=== PATIENT | female | born 1975 | race Caucasian/White ===

== ENCOUNTER 2019-11-19 09:24 | Outpatient (CLI) | payer MEDICARE, MEDICAID, SELFPAY | END 2019-11-19 09:25 | disposition home or self-care (01) | LOC: WOUND 09:25 | PROVIDERS: Family Provider Internal Medicine; Visit Provider Emergency Medicine | DX: E11.621 Type 2 diabetes mellitus with foot ulcer (principal); L97.422 Non-pressure chronic ulcer of left heel and midfoot with fat layer exposed; L97.412 Non-pressure chronic ulcer of right heel and midfoot with fat layer exposed | CPT/HCPCS: 11042; 87070; 87077; 87176; 87186; 87205; G0463; L3260 ==

== ENCOUNTER 2019-11-26 11:01 | Outpatient (CLI) | payer MEDICARE, MEDICAID, SELFPAY | END 2019-11-26 11:02 | disposition home or self-care (01) | LOC: WOUND 11:02 | PROVIDERS: Family Provider Internal Medicine; Visit Provider Emergency Medicine | DX: E11.621 Type 2 diabetes mellitus with foot ulcer (principal); L97.421 Non-pressure chronic ulcer of left heel and midfoot limited to breakdown of skin; L97.411 Non-pressure chronic ulcer of right heel and midfoot limited to breakdown of skin | CPT/HCPCS: 11042 ==

== ENCOUNTER 2019-12-01 07:52 | Outpatient (CLI) | payer MEDICARE, MEDICAID, SELFPAY ==
--- NOTE | 2019-12-01 08:01 | USCV_ITS ---
Honey Zuleta Age: 44 Gender: F : 1975 Exam Date: 12/01/2019 08:18 Ordering Phys: Shelbi Jett DO Technologist: Jj Connolly [place] [facility] [place]: HISTORY: PROCEDURES: FINDINGS: There is no evidence of bilateral deep vein thrombosis. No evidence of superficial thrombosis in the bilateral saphenous system. No evidence of reflux was noted in the bilateral deep venous system. No venous reflux noted in the bilateral greater saphenous vein. No venous reflux noted in the bilateral small saphenous vein. CONCLUSIONS No evidence of DVT in the above-mentioned identifiable veins. No significant venous reflux Venous segments were found to be of normal caliber bilaterally The venous dimensions and the left from the surface are as mentioned above. Dr Sheridan Marquez MD [facility] (Electronically Signed) Final Date: 01 December 2019 17:46 S
--- NOTE | 2019-12-01 08:32 | XR_ITS ---
WS: [id number] EXAM: LEFT FOOT: 3 VIEWS DATE OF EXAMINATION: 12/01/2019, 0901 hours COMPARISON: Left foot examination from 06/18/2018 HISTORY: 44 years old with ulcers on both feet. Pain in the left foot. Diabetic. FINDINGS: Bone density is normal in appearance. There are slight changes of arthritis in the midfoot articulati ons. Heel spur plantar aponeurosis insertion. No extensive soft tissue abnormality seen. Suspicion fo r possible osteochondral lesion medial talar dome. Ankle films recommended. No soft tissue abnormalit y noted. XR/XR foot LT min 3V* [id number] IMPRESSION: Slight arthritis in the midfoot articulations. No acute bony abnormality. Suspe cted osteochondral defect medial talar dome. Ankle films recommended.
--- NOTE | 2019-12-01 08:32 | XR_ITS ---
WS: [id number] EXAM: RIGHT FOOT: 3 VIEWS DATE OF EXAMINATION: 12/01/2019, 0859 hours COMPARISON: Right foot examination from 2018. HISTORY: 44 years old with ulcers on both feet. Pain. Patient is a diabetic. FINDINGS: Bone density is normal in appearance. There appears to be an old healed fracture involving the proxim al phalanx of the fourth toe. There is arthritis in the midfoot articulations demonstrated. No acute bony abnormality is seen. No extensive soft tissue abnormality demonstrated. No definite findings of osteomyelitis. No soft tissue abnormality noted. XR/XR foot RT min 3V* [id number] IMPRESSION: Slight changes of arthritis. No acute bony abnormality. No findings of osteomye litis.
== END 2019-12-01 07:53 | disposition home or self-care (01) ==
LOC: RAD 07:56
PROVIDERS: Family Provider Internal Medicine; Visit Provider Emergency Medicine
DX: M79.672 Pain in left foot (principal); E11.621 Type 2 diabetes mellitus with foot ulcer; L53.9 Erythematous condition, unspecified; L97.529 Non-pressure chronic ulcer of other part of left foot with unspecified severity; L97.519 Non-pressure chronic ulcer of other part of right foot with unspecified severity
CPT/HCPCS: 73630; 93970

== ENCOUNTER 2019-12-02 07:48 | Outpatient (CLI) | payer MEDICARE, MEDICAID, SELFPAY ==
--- NOTE | 2019-12-02 07:53 | USCV_ITS ---
Honey Zuleta Age: 44 Gender: F : 1975 Exam Date: 12/02/2019 07:51 Ordering Phys: Shelbi Jett DO Technologist: Exam Location: [facility] – [place] Indication: FOOT ULCERS RIGHT LEFT Brachial 166.00 mmHg Brachial 162.00 mmHg Pressure (mmHg) Waveform Pressure (mmHg) Waveform 220.00 CASUALTY UNDERWRITER 220.00 161.00 DPA 162.00 Pre-Exercise Toe Pressure 196.00 0.98 Pre-Exercise Toe/Brachial Index 1.10 FINDINGS Supernormal resting ABIs bilaterally Normal resting TBIs bilaterally CONCLUSIONS No significant arterial obstruction, based on the above findings Dr Sheridan Marquez MD [facility] (Electronically Signed) Final Date: 02 December 2019 20:56 S
== END 2019-12-02 07:49 | disposition home or self-care (01) ==
LOC: US 07:51
PROVIDERS: Family Provider Internal Medicine; Visit Provider Emergency Medicine
DX: M79.604 Pain in right leg (principal); M79.605 Pain in left leg; L53.9 Erythematous condition, unspecified; L97.529 Non-pressure chronic ulcer of other part of left foot with unspecified severity; L97.519 Non-pressure chronic ulcer of other part of right foot with unspecified severity
CPT/HCPCS: 93923

== ENCOUNTER 2019-12-03 10:34 | Outpatient (CLI) | payer MEDICARE, MEDICAID, SELFPAY | END 2019-12-03 10:35 | disposition home or self-care (01) | LOC: WOUND 10:37 | PROVIDERS: Family Provider Internal Medicine; Visit Provider Emergency Medicine | DX: E11.621 Type 2 diabetes mellitus with foot ulcer (principal); L97.422 Non-pressure chronic ulcer of left heel and midfoot with fat layer exposed; L97.412 Non-pressure chronic ulcer of right heel and midfoot with fat layer exposed | CPT/HCPCS: 11042 ==

== ENCOUNTER 2019-12-10 10:00 | Outpatient (CLI) | payer MEDICARE, MEDICAID, SELFPAY ==
--- NOTE | 2019-12-10 10:10 | XRR_ITS ---
PROCEDURE INFORMATION: Exam: XR Left Ankle Exam date and time: 12/10/2019 10:26 AM Age: 44 years old Clinical indication: Abnormal findings; Abnormal imaging study; Foot left; Additional info: Abnormal foot xray TECHNIQUE: Imaging protocol: XR Left ankle. Views: Frontal, lateral, and oblique views. COMPARISON: CR XR foot LT min 3V* [id number] 12/01/2019 8:54 AM FINDINGS: Bones/joints: No talar dome osteochondral defect identified. Mild-moderate tibiotalar joint effusion. No acute bony abnormality identified. A moderate plantar calcaneal ossified spur is present. Soft tissues: Normal. XR/XR ankle LT min 3V* [id number] IMPRESSION: 1. No talar dome osteochondral defect identified. 2. Mild-moderate tibiotalar joint effusion. 3. No acute bony abnormality identified. 4. Plantar calcaneal spur.
== END 2019-12-10 10:01 | disposition home or self-care (01) ==
LOC: RAD 10:04
PROVIDERS: PCP Nurse Practitioner Family; Visit Provider Emergency Medicine
DX: R93.89 Abnormal findings on diagnostic imaging of other specified body structures (principal); M77.32 Calcaneal spur, left foot; M25.472 Effusion, left ankle
CPT/HCPCS: 73610

== ENCOUNTER 2019-12-10 10:33 | Outpatient (CLI) | payer MEDICARE, MEDICAID, SELFPAY | END 2019-12-10 10:34 | disposition home or self-care (01) | LOC: WOUND 10:34 | PROVIDERS: PCP Nurse Practitioner Family; Visit Provider Nurse Practitioner Family | DX: E11.621 Type 2 diabetes mellitus with foot ulcer (principal); L97.422 Non-pressure chronic ulcer of left heel and midfoot with fat layer exposed; L97.412 Non-pressure chronic ulcer of right heel and midfoot with fat layer exposed; R93.89 Abnormal findings on diagnostic imaging of other specified body structures; M77.32 Calcaneal spur, left foot; M25.472 Effusion, left ankle | CPT/HCPCS: 11042; 73610 ==

== ENCOUNTER 2019-12-17 08:39 | Outpatient (CLI) | payer MEDICARE, MEDICAID, SELFPAY | END 2019-12-17 08:40 | disposition home or self-care (01) | LOC: WOUND 08:40 | PROVIDERS: PCP Nurse Practitioner Family; Visit Provider Nurse Practitioner Family | DX: E11.621 Type 2 diabetes mellitus with foot ulcer (principal); L97.412 Non-pressure chronic ulcer of right heel and midfoot with fat layer exposed; L97.422 Non-pressure chronic ulcer of left heel and midfoot with fat layer exposed | CPT/HCPCS: 11042 ==

== ENCOUNTER 2019-12-24 10:35 | Outpatient (CLI) | payer MEDICARE, MEDICAID, SELFPAY | END 2019-12-24 10:36 | disposition home or self-care (01) | LOC: WOUND 10:36 | PROVIDERS: PCP Nurse Practitioner Family; Visit Provider Surgery | DX: E11.621 Type 2 diabetes mellitus with foot ulcer (principal); L97.422 Non-pressure chronic ulcer of left heel and midfoot with fat layer exposed; L97.412 Non-pressure chronic ulcer of right heel and midfoot with fat layer exposed | CPT/HCPCS: G0463 ==

== ENCOUNTER 2019-12-31 08:11 | Outpatient (CLI) | payer MEDICARE, MEDICAID, SELFPAY | END 2019-12-31 08:12 | disposition home or self-care (01) | LOC: WOUND 08:12 | PROVIDERS: PCP Nurse Practitioner Family; Visit Provider Nurse Practitioner Family | DX: E11.621 Type 2 diabetes mellitus with foot ulcer (principal); L97.423 Non-pressure chronic ulcer of left heel and midfoot with necrosis of muscle; L97.412 Non-pressure chronic ulcer of right heel and midfoot with fat layer exposed | CPT/HCPCS: 11042 ==

== ENCOUNTER 2020-01-07 09:55 | Outpatient (CLI) | payer MEDICARE, MEDICAID, SELFPAY | END 2020-01-07 09:56 | disposition home or self-care (01) | LOC: WOUND 09:56 | PROVIDERS: PCP Nurse Practitioner Family; Visit Provider Thoracic Surgery (Cardiothoracic Vascular Surgery) | DX: E11.621 Type 2 diabetes mellitus with foot ulcer (principal); L97.423 Non-pressure chronic ulcer of left heel and midfoot with necrosis of muscle | CPT/HCPCS: 11042 ==

== ENCOUNTER 2020-01-14 10:21 | Outpatient (CLI) | payer MEDICARE, MEDICAID, SELFPAY | END 2020-01-14 10:22 | disposition home or self-care (01) | LOC: WOUND 10:22 | PROVIDERS: PCP Nurse Practitioner Family; Visit Provider Thoracic Surgery (Cardiothoracic Vascular Surgery) | DX: E11.621 Type 2 diabetes mellitus with foot ulcer (principal); L97.422 Non-pressure chronic ulcer of left heel and midfoot with fat layer exposed | CPT/HCPCS: 11042 ==

== ENCOUNTER 2020-01-21 09:44 | Outpatient (CLI) | payer MEDICARE, MEDICAID, SELFPAY | END 2020-01-21 09:45 | disposition home or self-care (01) | LOC: WOUND 09:45 | PROVIDERS: PCP Nurse Practitioner Family; Visit Provider Thoracic Surgery (Cardiothoracic Vascular Surgery) | DX: Z09 Encounter for follow-up examination after completed treatment for conditions other than malignant neoplasm (principal) | CPT/HCPCS: 99212 ==

== ENCOUNTER → 2020-11-18 11:21 | Outpatient (BNVA) | payer MEDICARE, MEDICAID, SELFPAY | PROVIDERS: PCP Nurse Practitioner Family; Visit Provider Podiatrist Foot & Ankle Surgery | DX: M25.572 Pain in left ankle and joints of left foot (principal); M79.672 Pain in left foot | CPT/HCPCS: 73610; 73630 ==

== ENCOUNTER 2021-01-20 13:54 | Outpatient (CLI) | payer MEDICARE, MEDICAID, SELFPAY | END 2021-01-20 13:55 | disposition home or self-care (01) | LOC: WOUND 13:55 | PROVIDERS: PCP Nurse Practitioner Family; Visit Provider Nurse Practitioner Family | DX: E11.621 Type 2 diabetes mellitus with foot ulcer (principal); L97.522 Non-pressure chronic ulcer of other part of left foot with fat layer exposed; Z87.891 Personal history of nicotine dependence | CPT/HCPCS: 11042; G0463 ==

== ENCOUNTER 2021-01-27 15:05 | Outpatient (CLI) | payer MEDICARE, MEDICAID, SELFPAY | END 2021-01-27 15:06 | disposition home or self-care (01) | LOC: WOUND 15:06 | PROVIDERS: PCP Nurse Practitioner Family; Visit Provider Emergency Medicine | DX: E11.621 Type 2 diabetes mellitus with foot ulcer (principal); L97.522 Non-pressure chronic ulcer of other part of left foot with fat layer exposed; I10 Essential (primary) hypertension; Z87.891 Personal history of nicotine dependence | CPT/HCPCS: 11042 ==

== ENCOUNTER 2021-02-03 09:53 | Outpatient (CLI) | payer MEDICARE, MEDICAID, SELFPAY | END 2021-02-03 09:54 | disposition home or self-care (01) | LOC: WOUND 09:55 | PROVIDERS: PCP Nurse Practitioner Family; Visit Provider Nurse Practitioner Family | DX: E11.621 Type 2 diabetes mellitus with foot ulcer (principal); L97.521 Non-pressure chronic ulcer of other part of left foot limited to breakdown of skin; I10 Essential (primary) hypertension; Z87.891 Personal history of nicotine dependence | CPT/HCPCS: 11042 ==

== ENCOUNTER 2021-03-03 10:51 | Outpatient (CLI) | payer MEDICARE, MEDICAID, SELFPAY | END 2021-03-03 10:52 | disposition home or self-care (01) | LOC: WOUND 10:52 | PROVIDERS: PCP Nurse Practitioner Family; Visit Provider Nurse Practitioner Family | DX: Z09 Encounter for follow-up examination after completed treatment for conditions other than malignant neoplasm (principal) | CPT/HCPCS: 99212 ==

== ENCOUNTER 2021-04-12 23:12 | Inpatient (IN) | payer MEDICARE, MEDICAID, SELFPAY ==
[2021-04-12 23:21] VITALS: BP 183/127; PULSE 98; RESP 22; TEMP 37; O2SAT 95; BMI 30.9
--- NOTE | 2021-04-12 23:31 | CTR_ITS ---
PROCEDURE INFORMATION: Exam: CT Head Without Contrast Exam date and time: 04/12/2021 11:31 PM Age: 46 years old Clinical indication: Altered mental status/memory loss; Patient HX: AMS. Increasing confusion per family. General weakness. Hypertensive. TECHNIQUE: Imaging protocol: Computed tomography of the head without contrast. Radiation optimization: All CT scans at this facility use at least one of these dose optimization techniques: automated exposure control; mA and/or kV adjustment per patient size (includes targeted exams where dose is matched to clinical indication); or iterative reconstruction. COMPARISON: No relevant prior studies available. RADIATION DOSE METRICS: Total DLP (mGy-cm): 1106.73 FINDINGS: Brain: Normal. No hemorrhage. Unremarkable white matter. No mass effect. Cerebral ventricles: No ventriculomegaly. Paranasal sinuses: Visualized sinuses are unremarkable. No fluid levels. Mastoid air cells: Visualized mastoid air cells are well aerated. Bones/joints: Unremarkable. No acute fracture. Soft tissues: Unremarkable. CT/CT head wo con* [id number] IMPRESSION: No acute intracranial abnormality.
--- NOTE | 2021-04-12 23:31 | XRR_ITS ---
PROCEDURE INFORMATION: Exam: XR Chest Exam date and time: 04/12/2021 11:31 PM Age: 46 years old Clinical indication: Patient HX: General weakness. Hypertensive. TECHNIQUE: Imaging protocol: XR of the chest. Views: 1 view. COMPARISON: No relevant prior studies available. FINDINGS: Lungs: Several left lower lobe pulmonary nodules suspected measuring up to 11 mm, consider further evaluation with dedicated chest CT. Pleural spaces: Unremarkable. No pleural effusion. No pneumothorax. Heart/Mediastinum: Cardiomegaly. Bones/joints: Unremarkable. XR/XR chest 1V portable [id number] IMPRESSION: 1. Cardiomegaly. 2. Several left lower lobe pulmonary nodules suspected measuring up to 11 mm, consider further evaluation with dedicated chest CT.
--- NOTE | 2021-04-12 23:32 | ECG_ITS ---
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 Measurements Intervals Pfeifer Rate: 98 P: 42 MT: 179 QRS: 10 QRSD: 92 T: 17 QT: 337 QTc: 431 Interpretive Statements SINUS RHYTHM POSSIBLE LEFT ATRIAL ENLARGEMENT [-0.1mV P-WAVE IN V1/V2] INCOMPLETE RIGHT BUNDLE BRANCH BLOCK [90+ ms QRS DURATION, TERMINAL R IN V1/V2, 40+ ms S IN I/aVL/V4/V5/V6] No previous ECG available for comparison Electronically Signed On 04-14-2021 0:00:19 SAT TUTOR by Sheridan Marquez M.D. [email or web address]
--- NOTE | 2021-04-12 23:33 | ED_ITS ---
HPI - Altered Mental Status General: Chief Complaint: Altered Mental Status Stated Complaint: WEAKNESS Time Seen by Provider: 04/12/21 23:28 Source: patient and EMS Mode of arrival: EMS Limitations: no limitations History of Present Illness: 46-year-old female has a history of diabetes high blood pressure that mother had called EMS because she has been having malaise weakness and confusion at home over the last 3 days she has had decreased oral pain intake has not been taking her meds has had some difficulty walking. Here patient is able answer all my questions appropriately she knows the year she knows where she is from has no confusion here states she is just felt very weak and tired denies any pain anywhere denies any fever has had a very slight cough denies any worsening proving factors. Associated symptoms: Deny depression Review of Systems Const: Reports: fatigue and malaise; Denies: fever(s), chills, body aches or change in appetite Eyes: Denies: blurry vision or eye discomfort ENMT: Denies: throat pain or dental pain Card: Denies: chest pain Resp: Denies: dyspnea GI: Denies: abdominal pain, nausea, vomiting or diarrhea : Denies: dysuria Musc: Denies: neck pain or back pain Skin/Breast: Denies: rash Neuro: Reports: confusion; Denies: headache(s) Psych: Denies: depression Gregor/Lymph: Denies: easy bruising All/Imm: Denies: urticaria PFSH ED PFSH: Medical History Anemia CKD (chronic kidney disease) stage 3, GFR 30-59 ml/min Diabetes mellitus Hyperlipidemia Hypertension Hypothyroid Neuropathy PVD (peripheral vascular disease) Surgical History Hx of section Hx of tubal ligation Social History Smoking and tobacco status: former smoker Marital status: Number of children: 3 service: No History of recent travel: No Physical Exam Const: COMMON NORMALS: no acute distress, patient oriented x3 and healthy appearing HENMT: COMMON NORMALS: normocephalic and atraumatic HEAD & SCALP: n ormocephalic and atraumatic Eye: COMMON NORMALS: Equal, round and reactive pupils present and EOMs intact bilaterally PUPIL: Yes Equal, round and reactive pupils present Neck/C-Spine: COMMON NORMALS: full ROM and supple Chest: COMMONS NORMALS: normal inspection of the chest and normal palpation of entire chest wall Resp: COMMON NORMALS: normal respiratory effort, No retractions, No use of accessory muscles and clear to auscultation bilaterally AUSCULTATION: clear to auscultation bilaterally Cardio: COMMON NORMALS: regular rate, regular rhythm and No murmurs present (Cardio) RATE: regular rate RHYTHM: regular rhythm GI: COMMON NORMALS: Normal to inspection, nondistended, normoactive bowel sounds present, Soft to palpation, non-tender and no masses PALPATION: Yes Soft to palpation Extremity: COMMON NORMALS: normal to inspection and full ROM Neuro: COMMON NORMALS: patient oriented x3, moves all extremities and no focal motor deficits Psych: COMMON NORMALS: mental status grossly normal, Normal thought process present and cooperative THOUGHT PROCESS: Normal thought process present Skin: COMMON NORMALS: no rashes or lesions noted and no wounds GENERAL SKIN EXAM: no rashes or lesions noted Course Vital Signs: Vital signs: Vital Signs Temperature 98.6 F 04/12/21 23:21 Pulse Rate 88 04/13/21 00:44 Respiratory Rate 15 04/13/21 00:44 Blood Pressure 190/87 04/13/21 00:44 Pulse Oximetry 94 04/13/21 00:44 MDM - Altered Mental Status Medical Decision Making Patient presents here with weakness she also tested positive for Covid here. She is having no respiratory issues not wearing oxygen but she does have acute kidney injury with creatinine here 4.3 likely from dehydration patient is also hypertensive here as well does have a chronic history of hypertension she has not been taking her meds spoke to hospitalist will admit at this time for further IV hydration. Lab Data : 04/12/21 23:20 04/12/21 23:20 Radiology Impressions Chest X-Ray 04/12/21 23:31 IMPRESSION: 1. Cardiomegaly. 2. Several left lower lobe pulmonary nodules suspected measuring up to 11 mm, consider further evaluation with dedicated chest CT. Head CT 04/12/21 23:31 IMPRESSION: No acute intracranial abnormality. Laboratory Results WBC 4.0 10^3/uL (4.0-10.0) 04/12/21 23:20 RBC 3.29 10^6/uL (4.1-5.3) L 04/12/21 23:20 Hgb 9.5 g/dL (11.5-15.3) L 04/12/21 23:20 Hct 30.1 % (37.0-47.0) L 04/12/21 23:20 MCV 91.5 fl (81-99) 04/12/21 23:20 MCH 28.9 pg (28.0-34.0) 04/12/21 23:20 MCHC 31.6 g/dL (30.0-36.0) 04/12/21 23:20 RDW 12.3 % (12.1-15.1) 04/12/21 23:20 Plt Count 209 10^3/cmm (130-400) 04/12/21 23:20 MPV 11.2 fL (7.4-10.4) H 04/12/21 23:20 Neut % (Auto) 58.2 % 04/12/21 23:20 Lymph % (Auto) 22.8 % 04/12/21 23:20 [place] % (Auto) 16.9 % 04/12/21 23:20 Eos % (Auto) 1.2 % 04/12/21 23:20 Baso % (Auto) 0.2 % 04/12/21 23:20 Neut # (Auto) 2.34 10^3/uL (1.8-7.7) 04/12/21 23:20 Lymph # (Auto) 0.9 10^3/uL (0.8-4.8) 04/12/21 23:20 [place] # (Auto) 0.7 10^3/uL (0.2-0.9) 04/12/21 23:20 Eos # (Auto) 0.1 10^3/uL (0.0-0.8) 04/12/21 23:20 Baso # (Auto) 0.0 10^3/uL (0.0-0.1) 04/12/21 23:20 Nucleated RBC % (auto) 0 % 04/12/21 23:20 Nucleated RBCs # 0.0 /100WBC 04/12/21 23:20 Sodium 139 mmol/L (136-145) 04/12/21 23:20 Potassium 4.5 mmol/L (3.5-5.1) 04/12/21 23:20 Chloride 104 mmol/L (98-107) 04/12/21 23:20 Carbon Dioxide 23 mmol/L (22-29) 04/12/21 23:20 Anion Gap 16.5 (5-19) 04/12/21 23:20 BUN 34 mg/dL (6-20) H 04/12/21 23:20 Creatinine 4.3 mg/dL (0.5-0.9) H 04/12/21 23:20 GFR Calculation 11.0 mL/min (90-130) L 04/12/21 23:20 Glucose 128 mg/dL (65-115) H 04/12/21 23:20 Calculated Osmolality 297 mOsm/kg (285-295) H 04/12/21 23:20 Calcium 7.7 mg/dL (8.5-10.5) L 04/12/21 23:20 Magnesium 2.1 mg/dL (1.7-2.3) 04/12/21 23:20 Total Bilirubin 0.2 mg/dL (0.15-1.2) 04/12/21 23:20 AST 25 U/L (0-32) 04/12/21 23:20 ALT 10 U/L (0-33) 04/12/21 23:20 Alkaline Phosphatase 52 IU/L (35-105) 04/12/21 23:20 Troponin T Baseline 26 ng/L (0-10) H 04/12/21 23:20 Troponin T 120 Minute 26.54 ng/L (0-10) H 04/13/21 01:28 Delta Troponin T 0.54 ABS# (0-10) 04/13/21 01:28 Total Protein 6.5 g/dL (6.6-8.7) L 04/12/21 23:20 Albumin 3.2 g/dL (3.5-5.2) L 04/12/21 23:20 Globulin 3.3 g/dL (1.3-4.6) 04/12/21 23:20 TSH 3.37 uIU/mL (0.27-4.20) 04/12/21 23:20 Urine Color Yellow (Yellow) 04/13/21 01:15 Urine Appearance Clear (CLEAR) 04/13/21 01:15 Urine pH 6.5 (5-7) 04/13/21 01:15 Ur Specific [place] 1.015 (1.005-1.030) 04/13/21 01:15 Urine Protein 3+ (Negative) H 04/13/21 01:15 Urine Glucose (UA) 1+ (Normal) H 04/13/21 01:15 Urine Ketones Negative (Negative) 04/13/21 01:15 Urine Blood 2+ (Negative) H 04/13/21 01:15 Urine Nitrate Negative (Negative) 04/13/21 01:15 Urine Bilirubin Neg (Negative) 04/13/21 01:15 Urine Urobilinogen Norm mg/dL (Negative) 04/13/21 01:15 Ur Leukocyte Esterase Negative (Negative) 04/13/21 01:15 Urine RBC 0-4 /hpf (0-2) H 04/13/21 01:15 Urine WBC 0-4 /hpf (0-5) H 04/13/21 01:15 Ur Squamous Epith Cells 10-15 /hpf (0-5) H 04/13/21 01:15 Amorphous Sediment Not Reportable 04/13/21 01:15 Urine Bacteria 1+ /hpf (NONE) H 04/13/21 01:15 Urine Mucus 1+ /hpf 04/13/21 01:15 SARS-CoV-2 Ag (Rapid) Positive (Negative) H 04/12/21 23:41 Imaging Data CXR: Radiologist's impression: IMPRESSION: 1. Cardiomegaly. 2. Several left lower lobe pulmonary nodules suspected measuring up to 11 mm, consider further evaluation with dedicated chest CT CT Head: I personally reviewed and interpreted this imaging study as follows: Radiologist's impression: IMPRESSION: No acute intracranial abnormality. EKG Data EKG 1: I personally reviewed and interpreted this EKG as follows: EKG interpretation date: 04/12/21 EKG interpretation time: 23:25 Interpretation: nsr hr [address] or t wave abnormalities qrs 92 qtc 392 Discharge Plan Discharge Patient Disposition: Admitted As Inpatient Clinical Impression: Acute kidney injury, COVID-19, Weakness, Hypertension Condition: Stable Coding Level of Care Code ED Cash Surrender Calculator for Chg Fwd Exam Comprehensive
[2021-04-12 23:40] LABS: Basophils % 0.2 %; Eosinophils # 0.1 10^3/uL (0.0-0.8); Eosinophils % 1.2 %; Hematocrit 30.1 % (37.0-47.0); Hemoglobin 9.5 g/dL (11.5-15.3); Lymphocytes # 0.9 10^3/uL (0.8-4.8); Lymphocytes % 22.8 %; Mean Corpuscular HGB Conc 31.6 g/dL (30.0-36.0); Mean Corpuscular Hemoglobin 28.9 pg (28.0-34.0); Mean Corpuscular Volume 91.5 fl (81-99); Mean Platelet Volume 11.2 fL (7.4-10.4); Monocytes # 0.7 10^3/uL (0.2-0.9); Monocytes % 16.9 %; Neutrophils # 2.34 10^3/uL (1.8-7.7); Neutrophils % 58.2 %; Nucleated Red Blood Cells % 0 %; Platelet Count 209 10^3/cmm (130-400); Red Blood Count 3.29 10^6/uL (4.1-5.3); Red Cell Distribution Width 12.3 % (12.1-15.1)
[2021-04-12] MEDS: labetalol 5 mg/mL SDV 20mL 10 MG IVP (23:56)
[2021-04-13] VITALS (26 sets, daily range): BP systolic 155–217; BP diastolic 72–120; PULSE 74–97; RESP 13–22; TEMP 37.1; O2SAT 91–97; BMI 38.4
[2021-04-13 00:11] LABS: Troponin(5th) Baseline 26 ng/L (0-10)
[2021-04-13 00:19] LABS: Alanine Aminotransferase 10 U/L (0-33); Albumin Level 3.2 g/dL (3.5-5.2); Alkaline Phosphatase 52 IU/L (35-105); Anion Gap 16.5 (5-19); Aspartate Amino Transferase 25 U/L (0-32); Blood Urea Nitrogen 34 mg/dL (6-20); Calcium 7.7 mg/dL (8.5-10.5); Carbon Dioxide 23 mmol/L (22-29); Chloride 104 mmol/L (98-107); Globulin 3.3 g/dL (1.3-4.6); Glucose 128 mg/dL (65-115); Magnesium 2.1 mg/dL (1.7-2.3); Osmolality Calculated 297 mOsm/kg (285-295); Potassium 4.5 mmol/L (3.5-5.1); Sodium 139 mmol/L (136-145); Thyroid Stimulating Hormone 3.37 uIU/mL (0.27-4.20); Total Bilirubin 0.2 mg/dL (0.15-1.2); Total Protein 6.5 g/dL (6.6-8.7)
[2021-04-13 00:23] LABS: SARS Covid-2 Antigen Positive (Negative)
[2021-04-13] MEDS: sodium chloride 0.9% 1,000 ML 999 ML IV (01:27)
--- NOTE | 2021-04-13 01:32 | ECG_ITS ---
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 Measurements Intervals [place]ival[place] Rate: 98 P: 42 DE: 179 QRS: 10 QRSD: 92 T: 17 QT: 337 QTc: 431 Interpretive Statements SINUS RHYTHM POSSIBLE LEFT ATRIAL ENLARGEMENT [-0.1mV P-WAVE IN V1/V2] INCOMPLETE RIGHT BUNDLE BRANCH BLOCK [90+ ms QRS DURATION, TERMINAL R IN V1/V2, 40+ ms S IN I/aVL/V4/V5/V6] No previous ECG available for comparison Electronically Signed On 04-14-2021 0:09:27 FAN BALANCER by Sheridan Marquez M.D. [email or web address]
[2021-04-13 01:51] LABS: Troponin 5 2HR 26.54 ng/L (0-10)
[2021-04-13 01:56] LABS: Troponin 5 2HR Delta 0.54 ABS# (0-10)
[2021-04-13 01:58] LABS: Add Urine Microscopic? YES; Bilirubin Urine Neg (Negative); Blood Urine 2+ (Negative); Glucose Urine UA 1+ (Normal); Ketones Urine Negative (Negative); Leukocyte Esterase Urine Negative (Negative); Nitrate Urine Negative (Negative); Protein Urine 3+ (Negative); RBC Urine 0-4 /hpf (0-2); Specific Gravity, Urine 1.015 (1.005-1.030); Urine Appearance Clear (CLEAR); Urine Color Yellow (Yellow); Urobilinogen Urine Norm (Negative); WBC Urine 0-4 /hpf (0-5); pH Urine 6.5 (5-7)
[2021-04-13 01:59] LABS: Bacteria Urine 1+ /hpf; Mucus Urine 1+ /hpf
[2021-04-13] MEDS: labetalol 5 mg/mL SDV 20mL 10 MG IVP (02:31)
--- NOTE | 2021-04-13 03:01 | P.HP_ITS ---
Providers/Chief Complaint Primary Care Provider: Lynsey Li APN Chief Complaint: WEAKNESS History of Present Illness Honey Zuleta is a 46 year old female with a past medical history insulin- dependent type 2 diabetes mellitus, right below-knee amputation, chronic anemia, CKD stage III, hypertension, hyperlipidemia, hypothyroidism, peripheral neuropathy, peripheral vascular disease who presents to [facility] due to increased confusion, weakness, fatigue. Currently patient is alert to person, not to place, not to time, she follows commands, no slurring of words, no focal weakness, no facial droop, currently hypertensive blood pressures 190s over 100, no chest pain complaints, headache, blurry vision, no neck stiffness. When I asked patient why she has come to the hospital, she does not know why, she tells that she feels tired and fatigued, denies any diarrhea, denies any dysuria, denies any cough, no shortness of breath no chest pain. Does complain of abdominal pain, quite diffuse. She tells me that she has been vaccinated for Covid, has received two vaccinations. Denies any nausea. No vomiting. In the em ergency room she is found to be Covid positive, creatinine 4.3, UA without any significant evidence of UTI, CTA of the head no acute stroke or bleed, 120- minute troponin 26.5 delta 0.54, EKG sinus rhythm, chest x-ray no focal infiltrates hospitalist team was called for admission. Review of Systems Const: Denies: fever(s) or malaise Eyes: Denies: change in vision or blurry vision ENMT: Denies: nasal congestion Resp: Denies: dyspnea, non-productive cough or wheezing GI: Denies: nausea, vomiting, diarrhea, constipation, hematochezia or melena : Denies: flank pain, dysuria or urinary frequency Musc: Denies: neck pain or back pain Neuro: Denies: headache(s), dizziness or vertigo Endo: Denies: polyuria or polydipsia Medications/Allergies Home Medications Medication Instructions Recorded Confirmed Last Taken Type amlodipine 10 mg tablet 10 mg PO DAILY 11/05/19 01/18/21 Unknown History cyclobenzaprine 10 mg tablet 10 mg PO TID 11/05/19 01/18/21 Unknown History diphenoxylate-atropine 2.5 1 tab PO Q8H PRN 11/05/19 01/18/21 Unknown History mg-0.025 mg tablet (Lomotil) duloxetine 30 mg capsule,delayed 30 mg PO DAILY 11/05/19 01/18/21 Unknown History release famotidine 40 mg tablet (Pepcid) 40 mg PO DAILY 11/05/19 01/18/21 Unknown History insulin detemir U-100 100 unit/mL 22 unit SUBCUT BID ml 11/05/19 01/18/21 Unknown History (3 mL) subcutaneous pen (Levemir FlexTouch U-100 Insulin) levothyroxine 112 mcg tablet 112 mcg PO DAILY 11/05/19 01/18/21 Unknown History losartan 50 mg tablet (Cozaar) 50 mg PO DAILY 11/05/19 01/18/21 Unknown History melatonin 10 mg tablet 10 mg PO DAILY 11/05/19 01/18/21 Unknown History pregabalin 150 mg capsule (Lyrica) 150 mg PO BID 11/05/19 01/18/21 Unknown History timolol 0.25 % eye drops 1 drop OPHTHALMIC (EYE) DAILY 11/05/19 01/18/21 Unknown History tramadol 50 mg tablet 50 mg PO Q4H PRN 11/05/19 01/18/21 Unknown History DARCO shoe to the left #1 ea 01/18/21 01/18/21 Unknown Rx Allergies Allergy/AdvReac Type Severity Reaction Status Date / Time Sulfa (Sulfonamide Allergy Severe fluid Verified 11/18/20 11:18 Antibiotics) around her heart sulfamethoxazole Allergy Severe fluid Verified 11/18/20 11:18 [From Bactrim] around her heart trimethoprim [From Bactrim] Allergy Severe fluid Verified 11/18/20 11:18 around her heart Penicillins Allergy blisters Verified 11/18/20 11:18 to mouth PFSH Acute PFSH: Medical History Anemia CKD (chronic kidney disease) stage 3, GFR 30-59 ml/min Diabetes mellitus Hyperlipidemia Hypertension Hypothyroid Neuropathy PVD (peripheral vascular disease) Surgical History Hx of section Hx of tubal ligation Social History Smoking and tobacco status: former smoker Marital status: Number of children: 3 service: No History of recent travel: No Vitals/I&O/Wt Last Vital Signs Temp 98.6 F 04/12/21 23:21 Pulse 97 04/13/21 02:39 Resp 19 H 04/13/21 02:39 BP 193/103 04/13/21 02:39 Pulse Ox 95 04/13/21 02:39 Weight last 48 hrs Weight 81.647 kg Physical Exam Const: COMMON NORMALS: no acute distress GENERAL APPEARANCE: cooperative, well kempt and well developed HENMT: COMMON NORMALS: normocephalic, Normal external nose present and oropharynx normal HEAD & SCALP: normocephalic FACE & SINUS: normal facial exam NOSE: Normal external nose present MOUTH: Normal oral and palatal mucosa present THROAT: posterior oropharynx normal Eye: COMMON NORMALS: Equal, round and reactive pupils present, EOMs intact bilaterally, conjunctivae normal and no scleral icterus CONJUNCTIVA: Yes conjunctivae normal PUPIL: Yes Equal, round and reactive pupils present Neck/C-Spine: COMMON NORMALS: full ROM, no lymphadenopathy, no meningeal signs, no JVD, Thyroid normal and No carotid bruits THYROID: Thyroid normal Lymph: LYMPHATIC: no lymphadenopathy noted Chest: COMMONS NORMALS: normal inspection of the chest Resp: COMMON NORMALS: normal respiratory effort, No retractions, No use of accessory muscles and clear to auscultation bilaterally AUSCULTATION: clear to auscultation bilaterally Cardio: COMMON NORMALS: regular rate, regular rhythm, S1 normal heart sound present, S2 normal heart sound present and No murmurs present (Cardio) RATE: regular rate RHYTHM: regular rhythm HEART SOUNDS: S1 normal heart sound present and S2 normal heart sound present PERIPHERAL PULSES: Peripheral pulses 2+ throughout GI: COMMON NORMALS: Normal to inspection, nondistended, normoactive bowel sounds present, Soft to palpation and No hepatosplenomegaly present PALPATION: Yes Soft to palpation, Yes Tenderness to palpation present (GI) (Diffuse tenderness), No Guarding due to palpation present (GI) and No Rigid due to palpation Extremity: COMMON NORMALS: normal to inspection, full ROM, capillary refill normal, no calf tenderness and no pedal edema NARRATIVE EXTREMITY EXAM: Right below-knee amputation patient Neuro: COMMON NORMALS: patient oriented x3, CN's II-XII intact bilaterally, moves all extremities, no focal motor deficits and no sensory deficits noted MENINGEAL SIGNS: Yes no meningeal signs Psych: COMMON NORMALS: cooperative and speech normal APPEARANCE: Yes well kempt SPEECH: Yes normal speech THOUGHT PROCESS: Normal thought process present Skin: COMMON NORMALS: turgor normal and no jaundice GENERAL SKIN EXAM: turgor normal Data : 04/12/21 23:20 04/12/21 23:20 A&P Assessment and plan (1) Acute kidney injury: Status: Acute (2) COVID-19: Status: Acute (3) Weakness: Status: Acute (4) Hypertension: Status: Acute (5) Diabetic peripheral neuropathy associated with type 2 diabetes mellitus: Status: Acute (6) Diabetic foot ulcer: Status: Acute Qualifiers: Diabetic foot ulcer location: midfoot Diabetes mellitus type: type 2 Laterality: left Non-pressure ulcer stage: unspecified non-pressure ulcer stage Qualified Code(s): E11.621 - Type 2 diabetes mellitus with foot ulcer; L97.429 - Non-pressure chronic ulcer of left heel and midfoot with unspecified severity (7) Hypertensive urgency: Status: Acute (8) Abdominal pain: Status: Acute (9) Acute encephalopathy: Status: Acute Plan Acute encephalopathy -Possibly secondary COVID-19, dehydration -UA unremarkable for UTI -Chest x-ray no focal infiltrate, no focal pneumonia -Diabetic ulcer, left foot, plantar aspect well-healing no significant signs of infections, pro-Alex, CRP -No significant electrolyte abnormalities -BUN 34 -CT head had no acute stroke -COVID-19 positive -Neurochecks, aspiration precautions, NIH stroke scale -Follow urine cultures, blood cultures, urine bacterial antigens, Legionella, sputum cultures -For now hold off on antibiotics -Follow CT scan abdomen pelvis LUPILLO on CKD -Secondary dehydration, creatinine 4.3 -Continue IV fluids Abdominal pain complaints -Diffusely tender -CT scan abdomen pelvis Type 2 diabetes mellitus low-dose sliding scale Hyperlipidemia, continue home medications Hypertensive urgency, given two dose of labetalol, clonidine 0.1 twice daily, continue home medications Full code Lovenox for DVT prophylaxis - Attestations Medical Necessity Statement*: Patient requires hospitalization, acute encephalopathy, LUPILLO, COVID-19 pneumonia, requiring inpatient admission, greater than two midnights Coding Level of Care Code Acute Photographer Finish for Chg Fwd History Comprehensive Exam Comprehensive Medical Decision Making Moderate Complexity Diagnoses Acute kidney injury N17.9 COVID-19 U07.1 Weakness R53.1 Hypertension I10 Diabetic peripheral neuropathy associated with type 2 diabetes mellitus E11.42 Diabetic foot ulcer E11.621; L97.429 Diabetic foot ulcer location: midfoot Diabetes mellitus type: type 2 Laterality: left Non-pressure ulcer stage: unspecified non-pressure ulcer stage Hypertensive urgency I16.0 Abdominal pain R10.9 Acute encephalopathy G93.40 Time Spent (min) 55
[2021-04-13 03:54] LABS: C Reactive Protein 36.5 mg/L (0.0-4.9)
[2021-04-13 04:14] LABS: Lactic Sepsis W/Reflex 1.1 mmol/L (0.5-2.2)
--- NOTE | 2021-04-13 05:32 | ECG_ITS ---
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 Measurements Intervals [place] Rate: 94 P: 55 DC: 176 QRS: 31 QRSD: 93 T: 18 QT: 344 QTc: 431 Interpretive Statements SINUS RHYTHM POSSIBLE LEFT ATRIAL ENLARGEMENT [-0.1mV P-WAVE IN V1/V2] INCOMPLETE RIGHT BUNDLE BRANCH BLOCK [90+ ms QRS DURATION, TERMINAL R IN V1/V2, 40+ ms S IN I/aVL/V4/V5/V6] Compared to ECG 04/12/2021 23:25:27 No significant changes Electronically Signed On 04-14-2021 0:10:10 ANALYTICS DEVELOPER by Sheridan Marquez M.D. [id number]
--- NOTE | 2021-04-13 05:32 | CTR_ITS ---
PROCEDURE INFORMATION: Exam: CT Abdomen And Pelvis Without Contrast Exam date and time: 04/13/2021 5:32 AM Age: 46 years old Clinical indication: Abdominal pain; Prior surgery TECHNIQUE: Imaging protocol: Computed tomography of the abdomen and pelvis without contrast. Total images: 263 Radiation optimization: All CT scans at this facility use at least one of these dose optimization techniques: automated exposure control; mA and/or kV adjustment per patient size (includes targeted exams where dose is matched to clinical indication); or iterative reconstruction. COMPARISON: abdomen limited 25021 12/22/2017 4:57 PM RADIATION DOSE METRICS: Total DLP (mGy-cm): 1873.33 FINDINGS: Lungs: Nonspecific bibasilar opacities, favoring atelectasis or pneumonia. Benign granulomatous disease of the lung is noted. Liver: Normal. No mass. Gallbladder and bile ducts: Normal. No calcified stones. No ductal dilation. Pancreas: Normal. No ductal dilation. Spleen: Incidental splenic granulomata are noted. Adrenal glands: Normal. No mass. Kidneys and ureters: Normal. No hydronephrosis. Stomach and bowel: Unremarkable. No obstruction. No mucosal thickening. Appendix: No evidence of appendicitis. Intraperitoneal space: Unremarkable. No free air. No significant fluid collection. Vasculature: Incidental venous phlebolith noted. Mild atherosclerotic disease is evident. Lymph nodes: Unremarkable. No enlarged lymph nodes. Urinary bladder: There is nonspecific urinary bladder wall thickening, under distention versus cystitis. Reproductive: Prior hysterectomy noted. Bones/joints: Multilevel degenerative disc disease is noted with vacuum phenomenon. Osteophytes are noted extending from the vertebrae. No acute spinal pathology is detected. Soft tissues: Multiple injection sites are noted in the subcutaneous tissues of the anterior abdominal wall. CT/CT abdomen pelvis con [id number] IMPRESSION: 1. Nonspecific bibasilar opacities, favoring atelectasis or pneumonia. 2. There is nonspecific urinary bladder wall thickening, under distention versus cystitis. Consider urinalysis.
[2021-04-13 05:58] LABS: Glucose Point of Care 134 mg/dL (70-110)
[2021-04-13] MEDS: cloNIDine 0.1 mg Tablet PO (06:11)
[2021-04-13] MEDS: sodium chloride 0.9% 1,000 ML 100 ML IV ×3 (06:11→20:59)
[2021-04-13] MEDS: enoxaparin 40 mg/0.4 mL Syringe SUBCUT (06:13)
[2021-04-13 06:16] LABS: Estmated Average Glucose 171; Hemoglobin A1C 7.6 % (4.0-6.0)
[2021-04-13 06:22] LABS: Troponin 5 6HR 25.68 ng/L (0-10)
[2021-04-13 06:30] LABS: Troponin 5 6HR Delta -0.32 ng/L (0-12)
[2021-04-13] MEDS: cefTRIAXone 1,000 MG in sodium chloride 0.9% (plus) 50 ML 100 MG IV (07:59)
[2021-04-13] MEDS: methylphenidate 10 mg Tablet PO (07:59)
[2021-04-13] MEDS: duloxetine 30 mg Capsule PO (08:44)
[2021-04-13] MEDS: amlodipine 10 mg Tablet PO (08:44)
[2021-04-13] MEDS: cyclobenzaprine 10 mg Tablet PO ×3 (08:44→20:59)
[2021-04-13] MEDS: famotidine 20 mg Tablet PO ×2 (08:44→17:44)
[2021-04-13] MEDS: docusate sodium 100 mg Capsule PO ×2 (08:44→17:44)
[2021-04-13] MEDS: levothyroxine 112 mcg Tablet PO (08:44)
[2021-04-13] MEDS: remdesivir 200 MG in sodium chloride 0.9% (100 ml) 60 ML 100 MG IV (08:45)
[2021-04-13] MEDS: dexamethasone 10 mg/mL INJ 6 MG IVP (08:45)
[2021-04-13] MEDS: insulin lispro 100 unit/1 mL SUBCUT ×2 (11:15→17:44)
[2021-04-13] MEDS: timolol 0.5% Op Soln 5 mL Btl 1 DROP EYE-BOTH (11:51)
--- NOTE | 2021-04-13 14:25 | PM.PN ---
Subjective Subjective: Interval history: Patient was on room air when evaluated her She was able to meet her name, date of however was not able to answer questions related to concentration Nonfocal neuro exam Vitals/I&O/Wt Last Vital Signs Temp 98.8 F 04/13/21 06:21 Pulse 79 04/13/21 13:15 Resp 17 04/13/21 13:15 BP 156/72 04/13/21 13:15 Pulse Ox 94 04/13/21 13:15 04/12/21 04/13/21 04/13/21 22:59 06:59 14:59 Intake Total 110 / 110 Balance 110 / 110 Weight last 48 hrs Weight 81.647 kg Physical Exam Narrative: EXAM NARRATIVE: Patient was sitting in her bed Saturating well on room air Abdomen soft Bilateral breath sound with rhonchi No signs of edema Nonfocal neuro exam Able to answer simple questions Not able to concentrate, inattention and lack of ability to focus Data : 04/12/21 23:20 04/12/21 23:20 Micro: Microbiology 04/13/21 05:41 Blood Culture - Preliminary Blood SPECIMEN COLLECTED 04/13/21 06:00 Blood Culture - Preliminary Blood SPECIMEN COLLECTED A&P Assessment and plan (1) Acute encephalopathy: Status: Acute (2) Hypertensive urgency: Status: Acute (3) COVID-19: Status: Acute (4) Weakness: Status: Acute (5) Abdominal pain: Status: Acute (6) Acute kidney injury: Status: Acute (7) Hypertension: Status: Acute (8) Diabetic peripheral neuropathy associated with type 2 diabetes mellitus: Status: Acute Plan Covid related encephalopathy Lack of concentration Nonfocal neuro exam Diabetic foot ulcer I will start her on remdesivir and Decadron Monitor sugar closely Sliding scale We will give her 1 dose of Ritalin TSH within normal range Check B12 Abdominal pain: CT abdomen pelvis unremarkable Hypertensive urgency: Resolved Full code Consistent carb diet Change Lovenox to heparin for DVT prophylaxis Hemoglobin A1c 7.6 Attestations Medical Necessity Statement*: Continue medical management Time Spent in Patient Care: 15 Coding Level of Care Code Acute Felt Finishing Supervisor for [facility] Diagnoses Acute encephalopathy G93.40 Hypertensive urgency I16.0 COVID-19 U07.1 Weakness R53.1 Abdominal pain R10.9 Acute kidney injury N17.9 Hypertension I10 Diabetic peripheral neuropathy associated with type 2 diabetes mellitus E11.42
[2021-04-13 17:42] LABS: Glucose Point of Care 282 mg/dL (70-110)
[2021-04-13 19:24] LABS: Glucose Point of Care 208 mg/dL (70-110)
[2021-04-13 19:24] LABS: Glucose Point of Care 122 mg/dL (70-110)
[2021-04-14] VITALS (8 sets, daily range): BP systolic 108–191; BP diastolic 72–101; PULSE 72–90; RESP 16–18; TEMP 36.6–37.3; O2SAT 92–93
[2021-04-14] MEDS: remdesivir 100 MG in sodium chloride 0.9% (100 ml) 100 ML IV (06:03)
[2021-04-14 06:09] LABS: Basophils % 0.3 %; Hematocrit 29.7 % (37.0-47.0); Hemoglobin 9.2 g/dL (11.5-15.3); Lymphocytes % 26.1 %; Mean Corpuscular Hemoglobin 28.9 pg (28.0-34.0); Mean Corpuscular Volume 93.4 fl (81-99); Mean Platelet Volume 10.8 fL (7.4-10.4); Monocytes # 0.6 10^3/uL (0.2-0.9); Monocytes % 14.2 %; Neutrophils # 2.27 10^3/uL (1.8-7.7); Neutrophils % 58.6 %; Nucleated Red Blood Cells % 0 %; Platelet Count 196 10^3/cmm (130-400); Red Blood Count 3.18 10^6/uL (4.1-5.3); Red Cell Distribution Width 12.1 % (12.1-15.1); White Blood Count 3.9 10^3/uL (4.0-10.0)
[2021-04-14 06:28] LABS: Glucose Point of Care 124 mg/dL (70-110)
[2021-04-14 06:36] LABS: Alanine Aminotransferase 10 U/L (0-33); Albumin Level 2.7 g/dL (3.5-5.2); Alkaline Phosphatase 45 IU/L (35-105); Anion Gap 15.6 (5-19); Aspartate Amino Transferase 25 U/L (0-32); Blood Urea Nitrogen 34 mg/dL (6-20); Calcium 7.3 mg/dL (8.5-10.5); Carbon Dioxide 19 mmol/L (22-29); Chloride 108 mmol/L (98-107); Globulin 3.1 g/dL (1.3-4.6); Glomerular Filtration Rate 14.4 mL/min (90-130); Glucose 127 mg/dL (65-115); Magnesium 1.9 mg/dL (1.7-2.3); Osmolality Calculated 295 mOsm/kg (285-295); Phosphorus 3.7 mg/dL (2.5-4.5); Potassium 4.6 mmol/L (3.5-5.1); Sodium 138 mmol/L (136-145); Total Bilirubin 0.2 mg/dL (0.15-1.2); Total Protein 5.8 g/dL (6.6-8.7)
[2021-04-14 07:13] LABS: Vitamin B12 1287 pg/mL (232-1245)
[2021-04-14] MEDS: sodium chloride 0.9% 1,000 ML 100 ML IV (07:16)
[2021-04-14] MEDS: amlodipine 10 mg Tablet PO (09:43)
[2021-04-14] MEDS: cyclobenzaprine 10 mg Tablet PO ×3 (09:43→20:34)
[2021-04-14] MEDS: famotidine 20 mg Tablet PO ×2 (09:43→18:06)
[2021-04-14] MEDS: duloxetine 30 mg Capsule PO (09:44)
[2021-04-14] MEDS: dexamethasone 10 mg/mL INJ 6 MG IVP (09:44)
[2021-04-14] MEDS: docusate sodium 100 mg Capsule PO ×2 (09:44→18:06)
[2021-04-14] MEDS: cefTRIAXone 1,000 MG in sodium chloride 0.9% (plus) 50 ML 100 MG IV (09:44)
[2021-04-14] MEDS: levothyroxine 112 mcg Tablet PO (09:44)
[2021-04-14 10:44] LABS: Glucose Point of Care 134 mg/dL (70-110)
[2021-04-14] MEDS: methylphenidate 10 mg Tablet 5 MG PO (12:41)
[2021-04-14 13:24] LABS: Glucose Point of Care 245 mg/dL (70-110)
[2021-04-14 17:20] LABS: Glucose Point of Care 291 mg/dL (70-110)
--- NOTE | 2021-04-14 17:44 | PM.PN ---
Subjective Subjective: Interval history: Patient's mentation has improved, on room air Vitals/I&O/Wt Last Vital Signs Temp 98.2 F 04/14/21 16:00 Pulse 85 04/14/21 16:00 Resp 18 04/14/21 16:00 BP 188/93 04/14/21 16:00 Pulse Ox 93 04/14/21 16:00 04/14/21 04/14/21 04/14/21 06:59 14:59 22:59 Intake Total 1240 / 2830 600 / 600 Output Total 625 / 625 Balance 615 / 2205 600 / 600 Weight last 48 hrs Weight 98.43 kg Weight 81.647 kg Physical Exam Narrative: EXAM NARRATIVE: Nonfocal neuro exam Awake and alert Nonfocal neuro exam EOMI, PERRLA Abdomen soft no audible stridor or wheezing On room air Right BKA No audible stridor or wheezing No signs of respiratory distress Data : 04/14/21 05:44 04/14/21 05:44 Micro: Microbiology 04/13/21 01:15 Bacterial Antigens - Final Urine,Clean Catch 04/13/21 01:15 Legionella Urinary Antigen - Final Urine,Voided 04/13/21 05:41 Blood Culture - Preliminary Blood NEGATIVE TO DATE 04/13/21 06:00 Blood Culture - Preliminary Blood NEGATIVE TO DATE A&P Assessment and plan (1) Acute encephalopathy: Status: Acute (2) Abdominal pain: Status: Acute (3) Hypertensive urgency: Status: Acute (4) Acute kidney injury: Status: Acute (5) COVID-19: Status: Acute (6) Weakness: Status: Acute (7) Hypertension: Status: Acute (8) Diabetic peripheral neuropathy associated with type 2 diabetes mellitus: Status: Acute (9) Diabetic foot ulcer: Status: Acute Qualifiers: Diabetic foot ulcer location: midfoot Diabetes mellitus type: type 2 Laterality: left Non-pressure ulcer stage: unspecified non-pressure ulcer stage Qualified Code(s): E11.621 - Type 2 diabetes mellitus with foot ulcer; L97.429 - Non-pressure chronic ulcer of left heel and midfoot with unspecified severity Plan Encephalopathy related to COVID-19: Improved Currently on room air LUPILLO related to dehydration improving with normal saline CT abdomen pelvis unremarkable B12 normal TSH normal Mentation has improved Patient lives alone in an apartment, Plan to discharge her once creatinine below 2 , likely around the weekend Give her 1 dose of Ritalin tomorrow morning as well Empirical coverage with ceftriaxone to be continued Attestations Medical Necessity Statement*: Continue medical management Time Spent in Patient Care: 15 Coding Level of Care Code Acute Board Certified Orthodontist for Chg Fwd Diagnoses Acute encephalopathy G93.40 Abdominal pain R10.9 Hypertensive urgency I16.0 Acute kidney injury N17.9 COVID-19 U07.1 Weakness R53.1 Hypertension I10 Diabetic peripheral neuropathy associated with type 2 diabetes mellitus E11.42 Diabetic foot ulcer E11.621; L97.429 Diabetic foot ulcer location: midfoot Diabetes mellitus type: type 2 Laterality: left Non-pressure ulcer stage: unspecified non-pressure ulcer stage
[2021-04-14] MEDS: hyDRALAzine 25 mg Tablet PO ×2 (18:06→20:34)
[2021-04-14] MEDS: insulin lispro 100 unit/1 mL SUBCUT (18:06)
[2021-04-14] MEDS: sodium chloride 0.9% 1,000 ML 125 ML IV (20:35)
[2021-04-14 21:16] LABS: Glucose Point of Care 260 mg/dL (70-110)
[2021-04-15] VITALS (11 sets, daily range): BP systolic 108–153; BP diastolic 72–96; PULSE 80–104; RESP 16–20; TEMP 36.2–37.1; O2SAT 92–95
[2021-04-15] MEDS: sodium chloride 0.9% 1,000 ML 125 ML IV ×2 (04:33→17:38)
[2021-04-15] MEDS: remdesivir 100 MG in sodium chloride 0.9% (100 ml) 100 ML IV (05:57)
[2021-04-15 06:49] LABS: Glucose Point of Care 157 mg/dL (70-110)
[2021-04-15 07:08] LABS: Basophils % 0.6 %; Hematocrit 29.2 % (37.0-47.0); Hemoglobin 8.9 g/dL (11.5-15.3); Lymphocytes % 28.7 %; Mean Corpuscular HGB Conc 30.5 g/dL (30.0-36.0); Mean Corpuscular Hemoglobin 28.5 pg (28.0-34.0); Mean Corpuscular Volume 93.6 fl (81-99); Monocytes # 0.6 10^3/uL (0.2-0.9); Monocytes % 16.7 %; Neutrophils # 1.87 10^3/uL (1.8-7.7); Neutrophils % 52.1 %; Nucleated Red Blood Cells % 0 %; Platelet Count 222 10^3/cmm (130-400); Red Blood Count 3.12 10^6/uL (4.1-5.3); White Blood Count 3.6 10^3/uL (4.0-10.0)
[2021-04-15 07:27] LABS: Alanine Aminotransferase 9 U/L (0-33); Albumin Level 2.5 g/dL (3.5-5.2); Alkaline Phosphatase 47 IU/L (35-105); Anion Gap 15.4 (5-19); Aspartate Amino Transferase 21 U/L (0-32); Blood Urea Nitrogen 37 mg/dL (6-20); Calcium 7.1 mg/dL (8.5-10.5); Carbon Dioxide 18 mmol/L (22-29); Chloride 106 mmol/L (98-107); Globulin 3.1 g/dL (1.3-4.6); Glomerular Filtration Rate 15.5 mL/min (90-130); Glucose 163 mg/dL (65-115); Osmolality Calculated 292 mOsm/kg (285-295); Potassium 4.4 mmol/L (3.5-5.1); Sodium 135 mmol/L (136-145); Total Bilirubin 0.2 mg/dL (0.15-1.2); Total Protein 5.6 g/dL (6.6-8.7)
[2021-04-15] MEDS: dexamethasone 10 mg/mL INJ 6 MG IVP (09:31)
[2021-04-15] MEDS: cefTRIAXone 1,000 MG in sodium chloride 0.9% (plus) 50 ML 100 MG IV (09:31)
[2021-04-15] MEDS: docusate sodium 100 mg Capsule PO ×2 (09:32→17:38)
[2021-04-15] MEDS: amlodipine 10 mg Tablet PO (09:32)
[2021-04-15] MEDS: cyclobenzaprine 10 mg Tablet PO ×3 (09:32→20:41)
[2021-04-15] MEDS: famotidine 20 mg Tablet PO ×2 (09:32→17:37)
[2021-04-15] MEDS: levothyroxine 112 mcg Tablet PO (09:32)
[2021-04-15] MEDS: insulin lispro 100 unit/1 mL SUBCUT ×3 (09:32→17:51)
[2021-04-15] MEDS: duloxetine 30 mg Capsule PO (09:32)
[2021-04-15] MEDS: hyDRALAzine 25 mg Tablet PO (09:33)
[2021-04-15 11:33] LABS: Glucose Point of Care 159 mg/dL (70-110)
--- NOTE | 2021-04-15 11:38 | PM.PN ---
Subjective Subjective: Interval history: With the help of walker she did 16 feet, no hypoxia O2 saturation above 93% no active shortness of breath, creatinine only 3.2 has not significantly improved I will keep her on IV fluids for now plan to discharge her once creatinine less than 2.5 however it is trending down gradually Vitals/I&O/Wt Last Vital Signs Temp 98.4 F 04/15/21 07:56 Pulse 87 04/15/21 10:57 Resp 20 H 04/15/21 10:57 BP 153/83 04/15/21 07:56 Pulse Ox 92 04/15/21 10:57 04/14/21 04/15/21 04/15/21 22:59 06:59 14:59 Intake Total 1000 / 1600 1235.833 / 2835.833 Output Total 300 / 300 Balance 1000 / 1600 935.833 / 2535.833 Weight last 48 hrs Weight 98.43 kg Physical Exam Narrative: EXAM NARRATIVE: Encephalopathy: Improved No audible stridor or wheezing or crackles No joint swelling Abdomen soft Nonfocal neuro exam EOMI, PERRLA S1, S2 Data : 04/15/21 05:36 04/15/21 05:36 Micro: Microbiology 04/13/21 01:15 Bacterial Antigens - Final Urine,Clean Catch 04/13/21 01:15 Legionella Urinary Antigen - Final Urine,Voided 04/13/21 05:41 Blood Culture - Preliminary Blood NEGATIVE TO DATE 04/13/21 06:00 Blood Culture - Preliminary Blood NEGATIVE TO DATE A&P Assessment and plan (1) Acute encephalopathy: Status: Acute (2) Abdominal pain: Status: Acute (3) Hypertensive urgency: Status: Acute (4) Acute kidney injury: Status: Acute (5) COVID-19: Status: Acute (6) Weakness: Status: Acute (7) Hypertension: Status: Acute (8) Diabetic peripheral neuropathy associated with type 2 diabetes mellitus: Status: Acute (9) Diabetic foot ulcer: Status: Acute Qualifiers: Diabetic foot ulcer location: midfoot Diabetes mellitus type: type 2 Laterality: left Non-pressure ulcer stage: unspecified non-pressure ulcer stage Qualified Code(s): E11.621 - Type 2 diabetes mellitus with foot ulcer; L97.429 - Non-pressure chronic ulcer of left heel and midfoot with unspecified severity Plan COVID-19 doing well on room air Discontinue Decadron and remdesivir Plan to discharge her once her creatinine less than 2.5 She is getting ceftriaxone Follow-up urine culture sensitivity Continue normal saline 125 mL/h Optimize hypertensive regimen Attestations Medical Necessity Statement*: Discharge once creatinine 2.5 and less Time Spent in Patient Care: 10 minutes Coding Level of Care Code Acute Store Lead for [facility] Fwd Diagnoses Acute encephalopathy G93.40 Abdominal pain R10.9 Hypertensive urgency I16.0 Acute kidney injury N17.9 COVID-19 U07.1 Weakness R53.1 Hypertension I10 Diabetic peripheral neuropathy associated with type 2 diabetes mellitus E11.42 Diabetic foot ulcer E11.621; L97.429 Diabetic foot ulcer location: midfoot Diabetes mellitus type: type 2 Laterality: left Non-pressure ulcer stage: unspecified non-pressure ulcer stage
[2021-04-15] MEDS: methylphenidate 10 mg Tablet PO (12:20)
[2021-04-15 17:24] LABS: Glucose Point of Care 219 mg/dL (70-110)
[2021-04-15] MEDS: hyDRALAzine 25 mg Tablet 50 MG PO ×2 (17:37→20:41)
[2021-04-15] MEDS: ondansetron 2 mg/ML SDV 2 mL 4 MG IVP (22:58)
[2021-04-16] VITALS (8 sets, daily range): BP systolic 139–172; BP diastolic 66–80; PULSE 70–102; RESP 16–19; TEMP 36.5–36.9; O2SAT 90–97
[2021-04-16] MEDS: acetaminophen 325 mg Tablet 650 MG PO ×2 (00:15→18:44)
--- NOTE | 2021-04-16 01:04 | PC.NURSE ---
Vitals reported to RN.
--- NOTE | 2021-04-16 03:58 | PC.PHAR ---
Renal Dosing for Levaquin Levaquin 750mg daily changed to q48h based on CRCL of 24
[2021-04-16] MEDS: sodium chloride 0.9% 1,000 ML 125 ML IV ×3 (04:11→21:51)
[2021-04-16 05:48] LABS: Anion Gap 17.7 (5-19); Blood Urea Nitrogen 40 mg/dL (6-20); Calcium 7.9 mg/dL (8.5-10.5); Carbon Dioxide 16 mmol/L (22-29); Chloride 106 mmol/L (98-107); Glomerular Filtration Rate 16.7 mL/min (90-130); Glucose 140 mg/dL (65-115); Osmolality Calculated 292 mOsm/kg (285-295); Potassium 4.7 mmol/L (3.5-5.1); Sodium 135 mmol/L (136-145)
[2021-04-16] MEDS: levoFLOXacin 750 mg Tablet PO (06:24)
[2021-04-16 07:54] LABS: Glucose Point of Care 122 mg/dL (70-110)
--- NOTE | 2021-04-16 08:42 | PC.SOCIAL ---
IMM update IMM updated with patient. Verbalized an understanding. Initialled, dated, timed, and placed in chart.
[2021-04-16] MEDS: levothyroxine 112 mcg Tablet PO (09:03)
[2021-04-16] MEDS: docusate sodium 100 mg Capsule PO ×2 (09:03→18:37)
[2021-04-16] MEDS: sodium bicarbonate 8.4% 1 mEq/mL 50mL Syr 25 MEQ IVP (09:03)
[2021-04-16] MEDS: hyDRALAzine 25 mg Tablet 50 MG PO ×3 (09:03→21:50)
[2021-04-16] MEDS: famotidine 20 mg Tablet PO ×2 (09:03→18:37)
[2021-04-16] MEDS: cyclobenzaprine 10 mg Tablet PO ×3 (09:03→21:50)
[2021-04-16] MEDS: amlodipine 10 mg Tablet PO (09:03)
[2021-04-16] MEDS: duloxetine 30 mg Capsule PO (09:03)
[2021-04-16] MEDS: timolol 0.5% Op Soln 5 mL Btl 1 DROP EYE-BOTH (09:59)
[2021-04-16 11:10] LABS: Glucose Point of Care 140 mg/dL (70-110)
--- NOTE | 2021-04-16 13:05 | PM.PN ---
Subjective Subjective: Interval history: Patient this morning is feeling fatigued and lethargic, however to pay some attention to 9 mathematical questions She is endorsing change in her taste, she was not able to swallow food because of change in taste, no overnight events, afebrile Currently on room air Vitals/I&O/Wt Last Vital Signs Temp 98.2 F 04/16/21 11:53 Pulse 102 H 04/16/21 11:53 Resp 19 H 04/16/21 11:53 BP 142/78 04/16/21 11:53 Pulse Ox 92 04/16/21 11:53 04/15/21 04/16/21 04/16/21 22:59 06:59 14:59 Intake Total 500 / 1450 1400 / 2850 360 / 360 Output Total 350 / 350 400 / 750 Balance 150 / 1100 1000 / 2100 360 / 360 Physical Exam Narrative: EXAM NARRATIVE: Patient laying comfortably in her bed On room air No audible stridor or wheezing Nonfocal neuro exam EOMI, PERRLA Nontender abdomen S1, S2 Data : 04/15/21 05:36 04/16/21 05:02 A&P Assessment and plan (1) Acute encephalopathy: Status: Acute (2) Hypertensive urgency: Status: Acute (3) Acute kidney injury: Status: Acute (4) COVID-19: Status: Acute (5) Weakness: Status: Acute (6) Diabetic peripheral neuropathy associated with type 2 diabetes mellitus: Status: Acute (7) Diabetic foot ulcer: Status: Acute Qualifiers: Diabetic foot ulcer location: midfoot Diabetes mellitus type: type 2 Laterality: left Non-pressure ulcer stage: unspecified non-pressure ulcer stage Qualified Code(s): E11.621 - Type 2 diabetes mellitus with foot ulcer; L97.429 - Non-pressure chronic ulcer of left heel and midfoot with unspecified severity Plan COVID-19 related symptoms, encephalopathy, waxing and waning, will give another dose of Ritalin today, not requiring oxygen LUPILLO related dehydration, continue IV fluids and antibiotics Plan to discharge in next 48 hours Hypertensive urgency: Improved Weakness: Slight improvement, work with PT Attestations Medical Necessity Statement*: Plan to discharge in next 48 hours Coding Level of Care Code Acute Sales Development Coordinator for [facility] Diagnoses Acute encephalopathy G93.40 Hypertensive urgency I16.0 Acute kidney injury N17.9 COVID-19 U07.1 Weakness R53.1 Diabetic peripheral neuropathy associated with type 2 diabetes mellitus E11.42 Diabetic foot ulcer E11.621; L97.429 Diabetic foot ulcer location: midfoot Diabetes mellitus type: type 2 Laterality: left Non-pressure ulcer stage: unspecified non-pressure ulcer stage
[2021-04-16 17:02] LABS: Glucose Point of Care 138 mg/dL (70-110)
[2021-04-16] MEDS: sodium bicarbonate 650 mg Tablet PO (18:37)
[2021-04-16 20:42] LABS: Glucose Point of Care 150 mg/dL (70-110)
[2021-04-16] MEDS: ALPRAZolam 0.5 mg Tablet PO (21:50)
[2021-04-17] VITALS (13 sets, daily range): BP systolic 122–188; BP diastolic 55–75; PULSE 88–95; RESP 16–19; TEMP 36.4–37.5; O2SAT 90–94
[2021-04-17 05:43] LABS: Anion Gap 12.5 (5-19); Blood Urea Nitrogen 37 mg/dL (6-20); Calcium 7.1 mg/dL (8.5-10.5); Carbon Dioxide 19 mmol/L (22-29); Chloride 112 mmol/L (98-107); Glomerular Filtration Rate 14.9 mL/min (90-130); Glucose 98 mg/dL (65-115); Osmolality Calculated 297 mOsm/kg (285-295); Potassium 4.5 mmol/L (3.5-5.1); Sodium 139 mmol/L (136-145)
[2021-04-17] MEDS: sodium chloride 0.9% 1,000 ML 125 ML IV (06:01)
[2021-04-17 06:36] LABS: Glucose Point of Care 90 mg/dL (70-110)
[2021-04-17] MEDS: docusate sodium 100 mg Capsule PO ×2 (10:19→17:49)
[2021-04-17] MEDS: hyDRALAzine 25 mg Tablet 50 MG PO ×2 (10:19→20:39)
[2021-04-17] MEDS: famotidine 20 mg Tablet PO ×2 (10:20→17:49)
[2021-04-17] MEDS: sodium bicarbonate 650 mg Tablet PO ×2 (10:20→17:49)
[2021-04-17] MEDS: duloxetine 30 mg Capsule PO (10:20)
[2021-04-17] MEDS: amlodipine 10 mg Tablet PO (10:20)
[2021-04-17] MEDS: cyclobenzaprine 10 mg Tablet PO ×3 (10:20→20:39)
[2021-04-17] MEDS: levothyroxine 112 mcg Tablet PO (10:20)
[2021-04-17] MEDS: timolol 0.5% Op Soln 5 mL Btl 1 DROP EYE-BOTH (10:21)
--- NOTE | 2021-04-17 11:18 | P.PN_ITS ---
Subjective Subjective: Interval history: Is making good amount of urine, creatinine is around 3-3.3 Afebrile, she is complaining of fatigue lethargy and chest congestion along with nasal congestion, I have requested Flonase She is still feeling anorexic not eating her meals very well Vitals/I&O/Wt Last Vital Signs Temp 97.9 F 04/17/21 08:45 Pulse 94 04/17/21 08:45 Resp 18 04/17/21 08:45 BP 188/75 04/17/21 08:45 Pulse Ox 94 04/17/21 08:45 04/16/21 04/17/21 04/17/21 22:59 06:59 14:59 Intake Total 1084.583 / 2754.583 1200 / 3954.583 Output Total 1000 / 1400 Balance 1084.583 / 2354.583 200 / 2554.583 Physical Exam Narrative: EXAM NARRATIVE: Patient is on room air Saturating well S1, S2 Chest auscultation revealed bilateral breath sounds no audible stridor or wheezing Nasal congestion endorsed by the patient Nonfocal neuro exam No signs of edema Abdomen soft She has poor concentration however she is awake and alert oriented to time place and person able to follow commands Data : 04/15/21 05:36 04/17/21 04:42 A&P Assessment and plan (1) Acute encephalopathy: Status: Acute (2) Abdominal pain: Status: Acute (3) Hypertensive urgency: Status: Acute (4) Acute kidney injury: Status: Acute (5) COVID-19: Status: Acute (6) Weakness: Status: Acute (7) Hypertension: Status: Acute (8) Diabetic peripheral neuropathy associated with type 2 diabetes mellitus: Status: Acute (9) Diabetic foot ulcer: Status: Acute Qualifiers: Diabetic foot ulcer location: midfoot Diabetes mellitus type: type 2 Laterality: left Non-pressure ulcer stage: unspecified non-pressure ulcer stage Qualified Code(s): E11.621 - Type 2 diabetes mellitus with foot ulcer; L97.429 - Non-pressure chronic ulcer of left heel and midfoot with unspecified severity Plan COVID-19 related encephalopathy: Resolved Fatigue and lethargy: Trial of Ritalin Acute on chronic kidney disease discontinue IV fluids, I do believe this is her new baseline creatinine, she has adequate urine output, she is not on any nephrotoxic agents, 2019 creatinine that was around 2 For nasal congestion we will give her Flonase, start budesonide For hypertension I will have added metoprolol, she is on hydralazine, amlodipine With discontinuation of IV fluid blood pressure hopefully will improve Hyperglycemia related to type 2 diabetes: Consistent carb diet, sliding scale Full code Plan to discharge her once creatinine is trending down ideally below 3 Attestations Medical Necessity Statement*: Continue medical management Coding Level of Care Code Acute Oncology Coordinator for [facility] Fwd Diagnoses Acute encephalopathy G93.40 Abdominal pain R10.9 Hypertensive urgency I16.0 Acute kidney injury N17.9 COVID-19 U07.1 Weakness R53.1 Hypertension I10 Diabetic peripheral neuropathy associated with type 2 diabetes mellitus E11.42 Diabetic foot ulcer E11.621; L97.429 Diabetic foot ulcer location: midfoot Diabetes mellitus type: type 2 Laterality: left Non-pressure ulcer stage: unspecified non-pressure ulcer stage
[2021-04-17 13:29] LABS: Glucose Point of Care 109 mg/dL (70-110)
[2021-04-17] MEDS: methylphenidate 10 mg Tablet PO (14:09)
--- NOTE | 2021-04-17 16:52 | PC.NURSE ---
Blood Pressure is 129/55. Dr. Yates messaged and replied to hold medication.
[2021-04-17 16:53] LABS: Glucose Point of Care 113 mg/dL (70-110)
[2021-04-17] MEDS: metoprolol tartrate 25 mg Tablet PO (20:39)
[2021-04-17 20:59] LABS: Glucose Point of Care 99 mg/dL (70-110)
[2021-04-18] VITALS (7 sets, daily range): BP systolic 112–152; BP diastolic 66–76; PULSE 77–86; RESP 17; TEMP 36.9–37.7; O2SAT 92–96
[2021-04-18] MEDS: levoFLOXacin 750 mg Tablet PO (06:04)
[2021-04-18 06:25] LABS: Anion Gap 13.7 (5-19); Blood Urea Nitrogen 33 mg/dL (6-20); Calcium 7.9 mg/dL (8.5-10.5); Carbon Dioxide 17 mmol/L (22-29); Chloride 113 mmol/L (98-107); Glucose 77 mg/dL (65-115); Osmolality Calculated 294 mOsm/kg (285-295); Potassium 4.7 mmol/L (3.5-5.1); Sodium 139 mmol/L (136-145)
[2021-04-18 06:54] LABS: Glucose Point of Care 81 mg/dL (70-110)
[2021-04-18] MEDS: cyclobenzaprine 10 mg Tablet PO (10:27)
[2021-04-18] MEDS: levothyroxine 112 mcg Tablet PO (10:27)
[2021-04-18] MEDS: duloxetine 30 mg Capsule PO (10:27)
[2021-04-18] MEDS: timolol 0.5% Op Soln 5 mL Btl 1 DROP EYE-BOTH (10:27)
[2021-04-18] MEDS: docusate sodium 100 mg Capsule PO (10:27)
[2021-04-18] MEDS: sodium bicarbonate 650 mg Tablet PO (10:27)
[2021-04-18] MEDS: famotidine 20 mg Tablet PO (10:27)
--- NOTE | 2021-04-18 11:29 | PM.DCS ---
Discharge Providers Date of Admission: 04/13/21 05:32 Date of Discharge: April 18, 2021 Attending Provider at Admission: Hill Mcdaniel MD Attending Provider at Discharge: Pippa Yates MD Primary Care Provider: Lynsey Li APN Diagnoses at Discharge Discharge Diagnosis (1) Acute encephalopathy: Status: Acute (2) Abdominal pain: Status: Acute (3) Hypertensive urgency: Status: Acute (4) Acute kidney injury: Status: Acute (5) COVID-19: Status: Acute (6) Weakness: Status: Acute (7) Hypertension: Status: Acute (8) Diabetic peripheral neuropathy associated with type 2 diabetes mellitus: Status: Acute (9) Diabetic foot ulcer: Status: Acute Qualifiers: Diabetes mellitus type: type 2 Diabetic foot ulcer location: midfoot Laterality: left Non-pressure ulcer stage: unspecified non-pressure ulcer stage Qualified Code(s): E11.621 - Type 2 diabetes mellitus with foot ulcer; L97.429 - Non-pressure chronic ulcer of left heel and midfoot with unspecified severity Reason for Visit Reason for Visit: WEAKNESS Hospital Course Hospital Course admission note by Dr. Ovalle Honey Zuleta is a 46 year old female with a past medical history insulin-dependent type 2 diabetes mellitus, right below-knee amputation, chronic anemia, CKD stage III, hypertension, hyperlipidemia, hypothyroidism, peripheral neuropathy, peripheral vascular disease who presents to [facility] due to increased confusion, weakness, fatigue. Currently patient is alert to person, not to place, not to time, she follows commands, no slurring of words, no focal weakness, no facial droop, currently hypertensive blood pressures 190s over 100, no chest pain complaints, headache, blurry vision, no neck stiffness. When I asked patient why she has come to the hospital, she does not know why, she tells that she feels tired and fatigued, denies any diarrhea, denies any dysuria, denies any cough, no shortness of breath no chest pain. Does complain of abdominal pain, quite diffuse. She tells me that she has been vaccinated for Covid, has received two vaccinations. Denies any nausea. No vomiting. In the emergency room she is found to be Covid positive, creatinine 4.3, UA without any significant evidence of UTI, CTA of the head no acute stroke or bleed, 120-minute troponin 26.5 delta 0.54, EKG sinus rhythm, chest x-ray no focal infiltrates hospitalist team was called for admission. Hospital course Patient was admitted for management evaluation of COVID-19 related encephalopathy. I gave her Ritalin which seemed to improve her symptoms. For her LUPILLO related to dehydration she was given IV fluids it slowly improved her creatinine, she seems to have achieved new baseline creatinine around 3. CT abdomen pelvis unremarkable. It was soft no signs of peritonitis. For her type 2 diabetes she was kept on sliding scale, CT head unremarkable for acute any acute strokelike changes. Cultures remain negative. She remained afebrile, did not require any oxygen during hospitalization. She lives in an apartment and I asked her to quarantine for next 10 days as well. She was given albuterol at the time of discharge as rescue inhaler. Physical Exam Narrative: EXAM NARRATIVE: Patient is on room air Saturating well S1, S2 Chest auscultation revealed bilateral breath sounds no audible stridor or wheezing Nasal congestion endorsed by the patient No signs of edema Abdomen soft Concentration seems to be better, awake and alert oriented to time place and person Nonfocal exam Discharge Data Studies Completed and Pending Completed Studies During Hospitalization Category Date Time Status CT abdomen pelvis wo con [id number] Urgent Cat Scan 04/13/21 05:[address] head wo con* [id number] Urgent Cat Scan 04/12/21 23:31 Completed XR chest 1V portable [id number] Urgent Exams 04/12/21 23:31 Completed Pending at discharge Category Date Time Status Clostridioides Difficile PCR Routine Lab 04/13/21 05:32 Ordered Enteric Bacterial Panel by PCR Routine Lab 04/13/21 05:32 Ordered Enteric Parasite Panel by PCR Routine Lab 04/13/21 05:32 Ordered Immunochemical Fecal OCB Routine Lab 04/13/21 05:32 Ordered Lactoferrin Routine Lab 04/13/21 05:32 Ordered Sputum Culture and Gram Stain Stat Lab 04/13/21 03:11 Uncollected Urinalysis Routine Lab 04/15/21 11:43 Ordered Radiology Impressions Chest X-Ray 04/12/21 23:31 IMPRESSION: 1. Cardiomegaly. 2. Several left lower lobe pulmonary nodules suspected measuring up to 11 mm, consider further evaluation with dedicated chest CT. Head CT 04/12/21 23:31 IMPRESSION: No acute intracranial abnormality. Abdomen/Pelvis CT 04/13/21 05:32 IMPRESSION: 1. Nonspecific bibasilar opacities, favoring atelectasis or pneumonia. 2. There is nonspecific urinary bladder wall thickening, under distention versus cystitis. Consider urinalysis. Laboratory Results WBC 3.6 10^3/uL (4.0-10.0) L 04/15/21 05:36 RBC 3.12 10^6/uL (4.1-5.3) L 04/15/21 05:36 Hgb 8.9 g/dL (11.5-15.3) L 04/15/21 05:36 Hct 29.2 % (37.0-47.0) L 04/15/21 05:36 MCV 93.6 fl (81-99) 04/15/21 05:36 MCH 28.5 pg (28.0-34.0) 04/15/21 05:36 MCHC 30.5 g/dL (30.0-36.0) 04/15/21 05:36 RDW 12.0 % (12.1-15.1) L 04/15/21 05:36 Plt Count 222 10^3/cmm (130-400) 04/15/21 05:36 MPV 11.0 fL (7.4-10.4) H 04/15/21 05:36 Neut % (Auto) 52.1 % 04/15/21 05:36 Lymph % (Auto) 28.7 % 04/15/21 05:36 Lewis % (Auto) 16.7 % 04/15/21 05:36 Eos % (Auto) 0.0 % 04/15/21 05:36 Baso % (Auto) 0.6 % 04/15/21 05:36 Neut # (Auto) 1.87 10^3/uL (1.8-7.7) 04/15/21 05:36 Lymph # (Auto) 1.0 10^3/uL (0.8-4.8) 04/15/21 05:36 Lewis # (Auto) 0.6 10^3/uL (0.2-0.9) 04/15/21 05:36 Eos # (Auto) 0.0 10^3/uL (0.0-0.8) 04/15/21 05:36 Baso # (Auto) 0.0 10^3/uL (0.0-0.1) 04/15/21 05:36 Nucleated RBC % (auto) 0 % 04/15/21 05:36 Nucleated RBCs # 0.0 /100WBC 04/15/21 05:36 Sodium 139 mmol/L (136-145) 04/18/21 04:48 Potassium 4.7 mmol/L (3.5-5.1) 04/18/21 04:48 Chloride 113 mmol/L (98-107) H 04/18/21 04:48 Carbon Dioxide 17 mmol/L (22-29) L 04/18/21 04:48 Anion Gap 13.7 (5-19) 04/18/21 04:48 BUN 33 mg/dL (6-20) H 04/18/21 04:48 Creatinine 3.1 mg/dL (0.5-0.9) H 04/18/21 04:48 GFR Calculation 16.0 mL/min (90-130) L 04/18/21 04:48 Glucose 77 mg/dL (65-115) 04/18/21 04:48 POC Glucose 81 mg/dL (70-110) 04/18/21 06:44 Estimat Average Glucose 171 04/13/21 05:50 Hemoglobin A1c 7.6 % (4.0-6.0) H 04/13/21 05:50 Calculated Osmolality 294 mOsm/kg (285-295) 04/18/21 04:48 Lactic Acid 1.1 mmol/L (0.5-2.2) 04/13/21 03:49 Calcium 7.9 mg/dL (8.5-10.5) L 04/18/21 04:48 Phosphorus 3.7 mg/dL (2.5-4.5) 04/14/21 05:44 Magnesium 1.9 mg/dL (1.7-2.3) 04/14/21 05:44 Total Bilirubin 0.2 mg/dL (0.15-1.2) 04/15/21 05:36 AST 21 U/L (0-32) 04/15/21 05:36 ALT 9 U/L (0-33) 04/15/21 05:36 Alkaline Phosphatase 47 IU/L (35-105) 04/15/21 05:36 Troponin T Baseline 26 ng/L (0-10) H 04/12/21 23:20 Troponin T 120 Minute 26.54 ng/L (0-10) H 04/13/21 01:28 Delta Troponin T 0.54 ABS# (0-10) 04/13/21 01:28 Troponin T Hi Sens 6Hr 25.68 ng/L (0-10) H 04/13/21 05:30 Troponin T Hi Sens 6Hr Delta -0.32 ng/L (0-12) L 04/13/21 05:30 C-Reactive Protein 36.5 mg/L (0.0-4.9) H 04/12/21 23:20 Total Protein 5.6 g/dL (6.6-8.7) L 04/15/21 05:36 Albumin 2.5 g/dL (3.5-5.2) L 04/15/21 05:36 Globulin 3.1 g/dL (1.3-4.6) 04/15/21 05:36 Vitamin B12 1287 pg/mL (232-1245) H 04/14/21 05:44 Procalcitonin 0.10 ng/mL (0-0.5) 04/12/21 23:20 TSH 3.37 uIU/mL (0.27-4.20) 04/12/21 23:20 Urine Color Yellow (Yellow) 04/13/21 01:15 Urine Appearance Clear (CLEAR) 04/13/21 01:15 Urine pH 6.5 (5-7) 04/13/21 01:15 Ur Specific [place] 1.015 (1.005-1.030) 04/13/21 01:15 Urine Protein 3+ (Negative) H 04/13/21 01:15 Urine Glucose (UA) 1+ (Normal) H 04/13/21 01:15 Urine Ketones Negative (Negative) 04/13/21 01:15 Urine Blood 2+ (Negative) H 04/13/21 01:15 Urine Nitrate Negative (Negative) 04/13/21 01:15 Urine Bilirubin Neg (Negative) 04/13/21 01:15 Urine Urobilinogen Norm mg/dL (Negative) 04/13/21 01:15 Ur Leukocyte Esterase Negative (Negative) 04/13/21 01:15 Urine RBC 0-4 /hpf (0-2) H 04/13/21 01:15 Urine WBC 0-4 /hpf (0-5) H 04/13/21 01:15 Ur Squamous Epith Cells 10-15 /hpf (0-5) H 04/13/21 01:15 Amorphous Sediment Not Reportable 04/13/21 01:15 Urine Bacteria 1+ /hpf (NONE) H 04/13/21 01:15 Urine Mucus 1+ /hpf 04/13/21 01:15 SARS-CoV-2 Ag (Rapid) Positive (Negative) H 04/12/21 23:41 Vitals Last Vital Signs Temp 98.8 F 04/18/21 04:00 Pulse 77 04/18/21 04:00 Resp 17 04/18/21 04:00 BP 117/66 04/18/21 04:00 Pulse Ox 94 04/18/21 04:00 Discharge Plan Discharge Patient Disposition: Home Condition: Stable Prescriptions: New albuterol sulfate 90 mcg/actuation HFA aerosol inhaler 2 inh inhalation Q6H Qty: 8.5 2RF Continued levothyroxine 112 mcg tablet 112 mcg PO QAM 0RF Levemir FlexTouch U-100 Insuln 100 unit/mL (3 mL) insulin pen 22 unit SUBCUT BID 0RF famotidine [Pepcid] 40 mg tablet 40 mg PO DAILY 0RF (DME) DARCO shoe to the left See Rx Instructions .Route .MEDSUPPLY Qty: 1 0RF Rx Instructions: As directed acetaminophen-codeine 300-30 mg tablet 1 tab PO Q4H PRN (Reason: Pain) 0RF folic acid 400 mcg Tablet 0.4 mg PO DAILY 0RF estradiol 1 mg tablet 1 mg PO QAM 0RF buspirone 10 mg tablet 5 - 10 mg PO BID PRN (Reason: Anxiety) 0RF timolol maleate 0.5 % drops 1 drp ophthalmic (eye) QAM 0RF Humalog KwikPen Insulin 100 unit/mL insulin pen See Rx Instructions .ROUTE .COMPLEX 0RF Rx Instructions: sliding scale subcutaneously tid with meals (max 20 units per day) duloxetine 60 mg capsule,delayed release(DR/EC) 60 mg PO QAM 0RF Healthy Eyes 1,000 unit-200 mg-60 unit-2 mg Tablet 1 tab PO DAILY 0RF Rx Instructions: administer after a meal Changed metoprolol tartrate 50 mg tablet 25 mg PO BID Qty: 0 0RF olmesartan 40 mg tablet 20 mg PO QAM Qty: 0 0RF Held furosemide 20 mg tablet 10 - 20 mg PO DAILY PRN (Reason: Edema) 0RF Hold Instructions: Resume on 05/02/21. Discharge Orders: Discharge Order (Routine); Ordered 04/18/21 Ordered By: Pippa Yates Other Ambulatory Orders: Basic Metabolic Panel (Routine) Timeframe: 2 Days Facility: [facility] - Location: Lab - Main Lab Ordered By: Pippa Yates Referrals: Mikhail Hernandez MD [Referring] - 4-7 days ([facility] will call you with a new patient appointment. ) Li,JOSE Menon [Primary Care Provider] - 1-3 days (Office was closed today. Please call to make an appointment to follow up after hospital discharge. ) Discharge Diet: Diabetic Discharge Activity: Increase activity as tolerated, Use walker/crutches as instructed and As per PT/OT instructions Patient Instructions: Albuterol (By breathing), Acute Kidney Injury (DC), Viral Encephalitis (DC), COVID-19 (Coronavirus Disease 2019) (DC), Opioid Safety Discharge Attestations Time Spent in Discharge Care*: less than 30 min Quality Metrics Clinical Quality Measures [ No reported AMI, CVA or VTE this stay] Coding Level of Care Code Acute Chg FW DC note Diagnoses Acute encephalopathy G93.40 Abdominal pain R10.9 Hypertensive urgency I16.0 Acute kidney injury N17.9 COVID-19 U07.1 Weakness R53.1 Hypertension I10 Diabetic peripheral neuropathy associated with type 2 diabetes mellitus E11.42 Diabetic foot ulcer E11.621; L97.429 Diabetes mellitus type: type 2 Diabetic foot ulcer location: midfoot Laterality: left Non-pressure ulcer stage: unspecified non-pressure ulcer stage
--- NOTE | 2021-04-18 11:47 | PC.SOCIAL ---
IMM Update pg 2 of IMM updated and reviewed w/ patient. Copy provided and Copy in chart signed.
[2021-04-18 12:19] LABS: Glucose Point of Care 109 mg/dL (70-110)
--- NOTE | 2021-04-18 14:03 | PC.NURSE ---
Discharge paperwork discussed with patient. Discussed making the follow up appointments and medications sent to pharmacy. Patient verbalized understanding.
== END 2021-04-18 14:41 | disposition home or self-care (01) | DRG 178 ==
LOC: ER 04-13 01:15 → ER IP 04-13 10:48 → MEDSURG 04-13 18:27
PROVIDERS: Admitting Provider Family Medicine; Emergency Provider Emergency Medicine; PCP Nurse Practitioner Family; Visit Provider Internal Medicine
DX: U07.1 COVID-19 (principal); N17.9 Acute kidney failure, unspecified; L97.429 Non-pressure chronic ulcer of left heel and midfoot with unspecified severity; G93.49 Other encephalopathy; D63.1 Anemia in chronic kidney disease; E11.22 Type 2 diabetes mellitus with diabetic chronic kidney disease; I12.9 Hypertensive chronic kidney disease with stage 1 through stage 4 chronic kidney disease, or unspecified chronic kidney disease; N18.30 Chronic kidney disease, stage 3 unspecified; E78.5 Hyperlipidemia, unspecified; E03.9 Hypothyroidism, unspecified; E11.42 Type 2 diabetes mellitus with diabetic polyneuropathy; E11.51 Type 2 diabetes mellitus with diabetic peripheral angiopathy without gangrene; Z87.891 Personal history of nicotine dependence; Z89.511 Acquired absence of right leg below knee; E11.621 Type 2 diabetes mellitus with foot ulcer; I16.0 Hypertensive urgency; E86.0 Dehydration; Z79.4 Long term (current) use of insulin; Z79.890 Hormone replacement therapy
CPT/HCPCS: 36415; 36416; 70450; 71045; 74176; 80048; 80053; 81001; 82607; 82962; 83036; 83605; 83735; 84100; 84145; 84443; 84484; 85025; 86140; 86403; 87040; 87426; 87449; 93005; 94664; 96372; 96374; 97110; 97116; 97162; 97165; 97530; 99285; J0696; J1100; J1650; J1815; J2405; J3490; J7030

== ENCOUNTER 2021-05-03 13:10 | Outpatient (CLI) | payer MEDICARE, MEDICAID, SELFPAY | END 2021-05-03 13:11 | disposition home or self-care (01) | LOC: WOUND 13:10 | PROVIDERS: PCP Nurse Practitioner Family; Visit Provider Emergency Medicine | DX: E11.621 Type 2 diabetes mellitus with foot ulcer (principal); L97.522 Non-pressure chronic ulcer of other part of left foot with fat layer exposed; Z87.891 Personal history of nicotine dependence | CPT/HCPCS: 11042; 99213 ==

== ENCOUNTER 2021-05-10 10:26 | Outpatient (CLI) | payer MEDICARE, MEDICAID, SELFPAY ==
--- NOTE | 2021-05-10 10:41 | USCV_ITS ---
Honey Zuleta Age: 46 Gender: F : 1975 Exam Date: 05/10/2021 10:59 Ordering Phys: Shelbi Jett DO Technologist: Arely Cochran Exam Location: [facility] [place] Indication: HISTORY: Non healing wound on lt foot. Rt Leg BK stump PROCEDURES: Venous duplex imaging was performed in only the left lower extremity. The following venous structures were evaluated: common femoral vein, profunda vein, proximal portion of the greater saphenous vein, superficial femoral vein, and the popliteal vein. In addition, the posterior tibial and peroneal trunk were evaluated. Serial compression, augmentation maneuvers, and spectral Doppler flow evaluation were performed. Grayscale and doppler images were obtained. Reflux maneuvers were performed with patient in the standing position. Rt leg is BK Stump so exam done from hip to distal fv and gsv FINDINGS: No DVT or venous insufficiency seen. The veins were found to be easily compressible with spontaneous blood flow. Non pulsatile flow pattern. Multiple echolucent areas are noted in the subcutaneous tissue of the left lower extremity. No significant venous reflux CONCLUSIONS No evidence of DVT in the above-mentioned identifiable veins. No significant venous reflux, either in the superficial or deep veins. Normal venous dimensions bilaterally Features of fluid retention/edema in the left lower extremity Dr Sheridan Marquez MD [facility] (Electronically Signed) Final Date: 11 May 2021 18:24 S
--- NOTE | 2021-05-10 10:41 | XR_ITS ---
WS: [id number] Exam: XR foot LT min 3V* [id number] Date/Time of Exam: 05/10/2021 10:41 AM Reason For Exam: DM2 W/ULCERS No acute fracture or dislocation. Mild degenerative changes in the midfoot joints. Plantar heel spur. No soft tissue foreign bodies are seen. Soft tissue swelling about the foot. XR/XR foot LT min 3V* [id number] IMPRESSION: 1. No fracture or bone destruction. 2. Soft tissue swelling and minimal DJD. Plantar heel spur.
== END 2021-05-10 10:27 | disposition home or self-care (01) ==
LOC: RAD 10:32
PROVIDERS: PCP Nurse Practitioner Family; Visit Provider Emergency Medicine
DX: E11.621 Type 2 diabetes mellitus with foot ulcer (principal); M79.89 Other specified soft tissue disorders; Z89.519 Acquired absence of unspecified leg below knee
CPT/HCPCS: 73630; 93970

== ENCOUNTER 2021-05-10 14:38 | Outpatient (CLI) | payer MEDICARE, MEDICAID, SELFPAY | END 2021-05-10 14:39 | disposition home or self-care (01) | LOC: WOUND 14:39 | PROVIDERS: PCP Nurse Practitioner Family; Visit Provider Emergency Medicine | DX: E11.621 Type 2 diabetes mellitus with foot ulcer (principal); L97.522 Non-pressure chronic ulcer of other part of left foot with fat layer exposed; Z87.891 Personal history of nicotine dependence; M79.89 Other specified soft tissue disorders; Z89.519 Acquired absence of unspecified leg below knee | CPT/HCPCS: 11042; 73630; 93970; 99212 ==

== ENCOUNTER 2021-05-17 10:10 | Outpatient (CLI) | payer MEDICARE, MEDICAID, SELFPAY | END 2021-05-17 10:11 | disposition home or self-care (01) | LOC: WOUND 10:11 | PROVIDERS: PCP Nurse Practitioner Family; Visit Provider Thoracic Surgery (Cardiothoracic Vascular Surgery) | DX: E11.621 Type 2 diabetes mellitus with foot ulcer (principal); L97.521 Non-pressure chronic ulcer of other part of left foot limited to breakdown of skin; Z87.891 Personal history of nicotine dependence | CPT/HCPCS: 11042; 97597 ==

== ENCOUNTER 2021-05-24 13:31 | Outpatient (CLI) | payer MEDICARE, MEDICAID, SELFPAY | END 2021-05-24 13:32 | disposition home or self-care (01) | LOC: WOUND 13:32 | PROVIDERS: PCP Nurse Practitioner Family; Visit Provider Emergency Medicine | DX: Z09 Encounter for follow-up examination after completed treatment for conditions other than malignant neoplasm (principal); Z87.891 Personal history of nicotine dependence; E11.621 Type 2 diabetes mellitus with foot ulcer; L97.521 Non-pressure chronic ulcer of other part of left foot limited to breakdown of skin | CPT/HCPCS: 11042; A6220 ==

== ENCOUNTER 2021-06-02 09:55 | Outpatient (CLI) | payer MEDICARE, MEDICAID, SELFPAY | END 2021-06-02 09:56 | disposition home or self-care (01) | LOC: WOUND 09:56 | PROVIDERS: PCP Nurse Practitioner Family; Visit Provider Nurse Practitioner Family | DX: E11.621 Type 2 diabetes mellitus with foot ulcer (principal); L97.521 Non-pressure chronic ulcer of other part of left foot limited to breakdown of skin | CPT/HCPCS: 11042 ==

== ENCOUNTER → 2021-06-09 09:32 | Outpatient (BNVA) | payer MEDICARE, MEDICAID, SELFPAY | PROVIDERS: PCP Nurse Practitioner Family; Visit Provider Nurse Practitioner Family | DX: E11.621 Type 2 diabetes mellitus with foot ulcer (principal); I96 Gangrene, not elsewhere classified; L97.521 Non-pressure chronic ulcer of other part of left foot limited to breakdown of skin; Z87.891 Personal history of nicotine dependence | CPT/HCPCS: 11042 ==

== ENCOUNTER 2021-06-10 09:49 | Emergency (ER) | payer MEDICARE, MEDICAID, SELFPAY ==
[2021-06-10 09:52] VITALS: BP 206/99; PULSE 69; RESP 18; TEMP 36.6; O2SAT 98; BMI 36.7
[2021-06-10 10:16] VITALS: BP 221/110; PULSE 69; RESP 18; O2SAT 98
--- NOTE | 2021-06-10 10:18 | XR_ITS ---
WS: [id number] Left shoulder, 3 views, 06/10/2021 Clinical Data: fall injury pain Comparison: None. Findings: No fractures or dislocations are seen. The AC joint is normal. The adjacent left clavicle, left scapu la and ribs are normal. The soft tissues are unremarkable. XR/XR shoulder LT min 2V* [id number] Impression: Negative left shoulder.
--- NOTE | 2021-06-10 10:19 | ED_ITS ---
HPI - Fall General: Chief Complaint: Fall Stated Complaint: FALL/ LAC TO HEAD History of Present Illness: Arrived via ambulance with a ground-level fall while she is trying to put her prosthetic leg on. Patient states she fell backwards hit back of her head. Denies any loss of conscious denies any nausea or vomiting. Patient does have left shoulder pain abrasion to forehead and a ve ry small lack to the back of the head. Patient's blood pressure is elevated as she is not taking her medication this morning. Patient said she was told by home health nurse who rekha blood last week that her blood count was slightly low and they needed her to start taking a vitamin. Patient denies any other problems presently. Associated symptoms-after fall: Denies abdominal pain, chest pain, headache(s) or vertigo Review of Systems Const: Denies: fever(s), chills or body aches Eyes: Denies: eye discomfort ENMT: Denies: throat pain Card: Denies: chest pain Resp: Denies: dyspnea GI: Denies: abdominal pain, nausea or vomiting Musc: Reports: joint pain (Left shoulder hurts) Skin/Breast: Reports: other (Abrasion right forehead and very small lack to the back of the head.); Denies: rash Neuro: Denies: headache(s), numbness in extremities, weakness in extremities, sensory changes, lack of coordination, vertigo, behavioral changes or Slurred speech present Psych: Denies: depression or suicidal ideation [facility] ED PFSH: Medical History Anemia CKD (chronic kidney disease) stage 3, GFR 30-59 ml/min Diabetes mellitus Hyperlipidemia Hypertension Hypothyroid Neuropathy PVD (peripheral vascular disease) Surgical History Hx of section Hx of tubal ligation Social History Smoking and tobacco status: former smoker Marital status: Number of children: 3 service: No History of recent travel: No Physical Exam Const: COMMON NORMALS: no acute distress, patient oriented x3 and alert HENMT: COMMON NORMALS: normocephalic and external ears normal HEAD & SCALP: normocephalic EXTERNAL EAR: Yes external ears normal Eye: COMMON NORMALS: EOMs intact bilaterally and conjunctivae normal CONJUNCTIVA: Yes conjunctivae normal Neck/C-Spine: COMMON NORMALS: no JVD CERVICAL SPINE: Yes cervical ROM normal, No pain with cervical ROM and No Cervical spine tenderness Resp: COMMON NORMALS: normal respiratory effort and No use of accessory muscles Cardio: COMMON NORMALS: no JVD GI: INSPECTION: Yes normal to inspection Extremity: COMMON NORMALS: normal to inspection and full ROM LEFT UPPER EXTREMITY: Yes shoulder joint (Tenderness at the top of the humerus. Patient does have full range of carlotta) Neuro: COMMON NORMALS: patient oriented x3 SENSORIUM/ORIENTATION: Yes alert PUPIL EXAM: Normal pupillary reactivity/response: bilateral Psych: COMMON NORMALS: mental status grossly normal Skin: COMMON NORMALS: no rashes or lesions noted GENERAL SKIN EXAM: no rashes or lesions noted OTHER: Mild abrasion to right side of forehead. Small lack maybe 1 mm back had no active bleeding. Course Vital Signs: Vital signs: Vital Signs Temperature 97.8 F 06/10/21 09:52 Pulse Rate 69 06/10/21 10:16 Respiratory Rate 18 06/10/21 10:16 Blood Pressure 221/110 06/10/21 10:16 Pulse Oximetry 98 06/10/21 10:16 MDM - Fall Medical Decision Making Patient presented with a ground-level fall while she is trying get her prosthetic leg on. Has a 1 mm lack back the head is not bleeding has abrasion right forehead and then she had left shoulder pain which radiology studies negative for any fracture or dislocation. Patient does have hypertension she did not take her medication this morning medication was given patient discharged home follow-up primary care provider. Lab Data : 06/10/21 10:32 Laboratory Results WBC 7.8 10^3/uL (4.0-10.0) 06/10/21 10:32 RBC 3.12 10^6/uL (4.1-5.3) L 06/10/21 10:32 Hgb 8.8 g/dL (11.5-15.3) L 06/10/21 10:32 Hct 28.1 % (37.0-47.0) L 06/10/21 10:32 MCV 90.1 fl (81-99) 06/10/21 10:32 MCH 28.2 pg (28.0-34.0) 06/10/21 10:32 MCHC 31.3 g/dL (30.0-36.0) 06/10/21 10:32 RDW 13.4 % (12.1-15.1) 06/10/21 10:32 Plt Count 279 10^3/cmm (130-400) 06/10/21 10:32 MPV 10.1 fL (7.4-10.4) 06/10/21 10:32 Neut % (Auto) 63.1 % 06/10/21 10:32 Lymph % (Auto) 21.9 % 06/10/21 10:32 Peach % (Auto) 8.5 % 06/10/21 10:32 Eos % (Auto) 4.6 % 06/10/21 10:32 Baso % (Auto) 1.5 % 06/10/21 10:32 Neut # (Auto) 4.89 10^3/uL (1.8-7.7) 06/10/21 10:32 Lymph # (Auto) 1.7 10^3/uL (0.8-4.8) 06/10/21 10:32 Peach # (Auto) 0.7 10^3/uL (0.2-0.9) 06/10/21 10:32 Eos # (Auto) 0.4 10^3/uL (0.0-0.8) 06/10/21 10:32 Baso # (Auto) 0.1 10^3/uL (0.0-0.1) 06/10/21 10:32 Nucleated RBC % (auto) 0 % 06/10/21 10:32 Nucleated RBCs # 0.0 /100WBC 06/10/21 10:32 Discharge Plan Discharge Patient Disposition: Home Clinical Impression: Fall, Abrasion, Acute shoulder pain, Anemia Condition: Stable Prescriptions: No Action levothyroxine 112 mcg tablet 112 mcg PO QAM 0RF Levemir FlexTouch U-100 Insuln 100 unit/mL (3 mL) insulin pen 22 unit SUBCUT BID 0RF famotidine [Pepcid] 40 mg tablet 40 mg PO DAILY 0RF (DME) DARCO shoe to the left See Rx Instructions .Route .MEDSUPPLY Qty: 1 0RF Rx Instructions: As directed acetaminophen-codeine 300-30 mg tablet 1 tab PO Q4H PRN (Reason: Pain) 0RF folic acid 400 mcg Tablet 0.4 mg PO DAILY 0RF estradiol 1 mg tablet 1 mg PO QAM 0RF buspirone 10 mg tablet 5 - 10 mg PO BID PRN (Reason: Anxiety) 0RF furosemide 20 mg tablet 10 - 20 mg PO DAILY PRN (Reason: Edema) 0RF Hold Instructions: Resume on 05/02/21. timolol maleate 0.5 % drops 1 drp ophthalmic (eye) QAM 0RF Humalog KwikPen Insulin 100 unit/mL insulin pen See Rx Instructions .ROUTE .COMPLEX 0RF Rx Instructions: sliding scale subcutaneously tid with meals (max 20 units per day) duloxetine 60 mg capsule,delayed release(DR/EC) 60 mg PO QAM 0RF Healthy Eyes 1,000 unit-200 mg-60 unit-2 mg Tablet 1 tab PO DAILY 0RF Rx Instructions: administer after a meal albuterol sulfate 90 mcg/actuation HFA aerosol inhaler 2 inh inhalation Q6H Qty: 8.5 2RF metoprolol tartrate 50 mg tablet 25 mg PO BID Qty: 0 0RF olmesartan 40 mg tablet 20 mg PO QAM Qty: 0 0RF Discharge Orders: Discharge ED (Routine); Ordered 06/10/21 Ordered By: Negro Angel Referrals: Lynsey Li APN [Primary Care Provider] - Discharge Diet: Advance as tolerated Discharge Activity: Resume usual activity Patient Instructions: Laceration (ED), Abrasion (ED) Activity Restrictions/Additional Instructions: Follow instructions provided to you and instruction sheets. Follow-up your primary care provider as needed. Get your blood drawn on a regular basis. Take your medications as directed. Coding Level of Care Code ED Resource Specialist for Chg Fwd Exam Comprehensive
[2021-06-10 10:36] LABS: Basophils # 0.1 10^3/uL (0.0-0.1); Basophils % 1.5 %; Eosinophils # 0.4 10^3/uL (0.0-0.8); Eosinophils % 4.6 %; Hematocrit 28.1 % (37.0-47.0); Hemoglobin 8.8 g/dL (11.5-15.3); Lymphocytes # 1.7 10^3/uL (0.8-4.8); Lymphocytes % 21.9 %; Mean Corpuscular HGB Conc 31.3 g/dL (30.0-36.0); Mean Corpuscular Hemoglobin 28.2 pg (28.0-34.0); Mean Corpuscular Volume 90.1 fl (81-99); Mean Platelet Volume 10.1 fL (7.4-10.4); Monocytes # 0.7 10^3/uL (0.2-0.9); Monocytes % 8.5 %; Neutrophils # 4.89 10^3/uL (1.8-7.7); Neutrophils % 63.1 %; Nucleated Red Blood Cells % 0 %; Platelet Count 279 10^3/cmm (130-400); Red Blood Count 3.12 10^6/uL (4.1-5.3); Red Cell Distribution Width 13.4 % (12.1-15.1); White Blood Count 7.8 10^3/uL (4.0-10.0)
[2021-06-10 10:45] VITALS: BP 221/110
[2021-06-10] MEDS: metoprolol succinate ER (24 HR) 25 mg Tablet PO (10:45)
[2021-06-10] MEDS: cloNIDine 0.1 mg Tablet PO (10:45)
[2021-06-10] MEDS: CELEcoxib 200 mg Capsule 400 MG PO (10:46)
--- NOTE | 2021-06-10 10:49 | PC.NURSE ---
Patient called her mother for a ride home,patient states she will be about 30 minutes.
[2021-06-10 10:57] VITALS: BP 216/102; PULSE 90; O2SAT 96
--- NOTE | 2021-06-10 10:58 | PC.NURSE ---
Patient hypertensive, provider aware of blood pressure, medication prescribed and administered.
[2021-06-10 11:02] VITALS: BP 193/111
--- NOTE | 2021-06-10 11:08 | PC.NURSE ---
Patient remains hypertensive at 212/122. Notified Negro MCGREGOR, instructed to take blood pressure at 30 minutes after blood pressure medications were given and then to report number at that time.
[2021-06-10 11:21] VITALS: BP 204/99; BP 212/99; PULSE 90; RESP 16; O2SAT 96
--- NOTE | 2021-06-10 11:31 | PC.NURSE ---
Negro MCGREGOR notified of patient's blood pressure of 212/99 prior to discharge, with decrease is blood pressure and history of hypertension he stated it was appropriate at this time for discharge. Patient wheeled to waiting arm, IV removed. Patient stable upon discharge.
== END 2021-06-10 11:34 | disposition home or self-care (01) ==
PROVIDERS: Emergency Provider Nurse Practitioner Family; PCP Nurse Practitioner Family
DX: S01.01XA Laceration without foreign body of scalp, initial encounter (principal); S00.81XA Abrasion of other part of head, initial encounter; M25.512 Pain in left shoulder; D64.9 Anemia, unspecified; Z79.4 Long term (current) use of insulin; E11.22 Type 2 diabetes mellitus with diabetic chronic kidney disease; I12.9 Hypertensive chronic kidney disease with stage 1 through stage 4 chronic kidney disease, or unspecified chronic kidney disease; N18.30 Chronic kidney disease, stage 3 unspecified; E78.5 Hyperlipidemia, unspecified; Z87.891 Personal history of nicotine dependence; W17.89XA Other fall from one level to another, initial encounter
CPT/HCPCS: 73030; 85025; 99284

== ENCOUNTER 2021-06-15 09:05 | Outpatient (CLI) | payer MEDICARE, MEDICAID, SELFPAY ==
--- NOTE | 2021-06-15 09:17 | USCV_ITS ---
Honey Zuleta Age: 46 Gender: F : 1975 Exam Date: 06/15/2021 09:05 Ordering Phys: Shelbi Jett DO Technologist: Gena Galvan Exam Location: [facility] [place] Indication: pre op RIGHT LEFT Brachial 176.00 mmHg Brachial 186.00 mmHg Pressure (mmHg) Waveform Pressure (mmHg) Waveform Pre-Exercise Toe Pressure 224.00 Pre-Exercise Toe/Brachial Index 1.20 FINDINGS Left SUPERVISOR GROVE and DPA all above 250 Right leg amputation PVR waveforms showing some blunting of the dicrotic notch CONCLUSIONS Supranormal resting LEVI and TBI on the left side. Some features of arterial noncompliace No significant arterial obstruction, based on the above findings Dr Sheridan Marquez MD [facility] (Electronically Signed) Final Date: 17 June 2021 09:59 S
== END 2021-06-15 09:06 | disposition home or self-care (01) ==
LOC: RAD 09:06
PROVIDERS: PCP Nurse Practitioner Family; Visit Provider Emergency Medicine
DX: E11.621 Type 2 diabetes mellitus with foot ulcer (principal)
CPT/HCPCS: 93922

== ENCOUNTER → 2021-06-16 10:38 | Outpatient (BNVA) | payer MEDICARE, MEDICAID, SELFPAY | PROVIDERS: PCP Nurse Practitioner Family; Visit Provider Nurse Practitioner Family | DX: E11.621 Type 2 diabetes mellitus with foot ulcer (principal); L97.521 Non-pressure chronic ulcer of other part of left foot limited to breakdown of skin; I96 Gangrene, not elsewhere classified; Z87.891 Personal history of nicotine dependence | CPT/HCPCS: 11042 ==

== ENCOUNTER → 2021-06-23 10:56 | Outpatient (BNVA) | payer MEDICARE, MEDICAID, SELFPAY | PROVIDERS: PCP Nurse Practitioner Family; Visit Provider Nurse Practitioner Family | DX: E11.621 Type 2 diabetes mellitus with foot ulcer (principal); L97.521 Non-pressure chronic ulcer of other part of left foot limited to breakdown of skin; I96 Gangrene, not elsewhere classified; Z87.891 Personal history of nicotine dependence | CPT/HCPCS: 11042; A6250 ==

== ENCOUNTER 2021-06-26 09:38 | Inpatient (IN) | payer MEDICARE, MEDICAID, SELFPAY ==
[2021-06-26] VITALS (10 sets, daily range): BP systolic 115–168; BP diastolic 76–88; PULSE 16–69; RESP 3–18; TEMP 36.4–36.6; O2SAT 90–96
--- NOTE | 2021-06-26 09:46 | XRR_ITS ---
PROCEDURE INFORMATION: Exam: XR Chest Exam date and time: 06/26/2021 9:54 AM Age: 46 years old Clinical indication: Shortness of breath; Additional info: SOB TECHNIQUE: Imaging protocol: XR of the chest. Views: 1 view. COMPARISON: CR (CHEST, ) 04/12/2021 11:40 PM FINDINGS: Lungs: Parenchymal densities right lower lobe consistent with pneumonia right upper lobe and left lung are clear. The finding seen were not present on prior examination. Pleural spaces: Unremarkable. No pleural effusion. No pneumothorax. Heart/Mediastinum: Unremarkable. No cardiomegaly. Bones/joints: Unremarkable. XR/XR chest 1V portable [id number] IMPRESSION: 1. Right lower lobe pneumonia 2. Otherwise negative for acute abnormality
--- NOTE | 2021-06-26 09:47 | ED_ITS ---
HPI - Chest Pain General: Chief Complaint: Chest Pain Stated Complaint: CHEST PAIN Time Seen by Provider: 06/26/21 09:39 History of Present Illness: 46-year-old female with history of diabetes presents due to chest pain. States this started approximately 2 days ago. Also reports some shortness of breath. Denies fevers chills or cough. Denies lower extremity pain or swelling. 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 Describes pain does not pleuritic and nonexertional. Denies any radiation to the back. Review of Systems Narrative: - CONSTITUTIONAL: Denies weight loss, fever and chills. - HEENT: Denies changes in vision and hearing. - RESPIRATORY: As above - CV: As above - GI: Denies abdominal pain, nausea, vomiting and diarrhea. - : Denies dysuria and urinary frequency. - MSK: Denies myalgia and joint pain. - SKIN: Denies rash and pruritus. - NEUROLOGICAL: Denies headache, weakness, numbness and syncope. - PSYCHIATRIC: Denies suicidal ideation PFSH ED PFSH: Medical History Anemia CKD (chronic kidney disease) stage 3, GFR 30-59 ml/min Diabetes mellitus Hyperlipidemia Hypertension Hypothyroid Neuropathy PVD (peripheral vascular disease) Surgical History Hx of section Hx of tubal ligation Social History Smoking and tobacco status: former smoker Marital status: Number of children: 3 service: No History of recent travel: No Physical Exam Narrative: EXAM NARRATIVE: - GENERAL: Alert and oriented x 3. No acute distress. Well-nourished. - EYES: EOMI. Anicteric. - HENT: Atraumatic, no C-spine tenderness. Moist mucous membranes. No scleral icterus. No cervical lymphadenopathy. - LUNGS: Clear to auscultation bilaterally. No accessory muscle use. Equal lung sounds bilaterally. No respiratory distress. - CARDIOVASCULAR: Regular rate and rhythm. No murmur. No JVD. - ABDOMEN: Soft, non-tender and non-distended. Negative CVA tenderness bilaterally, no rebound or guarding, negative Louise sign. No palpable masses. - EXTREMITIES: Right-sided BKA, left-sided diabetic foot ulcer. No crepitus. No edema. Extremity otherwise neurovascularly intact. - SKIN: No rashes or lesions. Warm. - NEUROLOGIC: No meningismus or focal neurological deficits. CN II-XII grossly intact. - PSYCHIATRIC: Cooperative. Appropriate mood and affect. Course Vital Signs: Vital signs: Vital Signs Temperature 97.7 F 06/26/21 10:13 Pulse Rate 63 06/26/21 11:30 Respiratory Rate 16 06/26/21 11:30 Blood Pressure 164/87 06/26/21 11:30 Pulse Oximetry 96 06/26/21 11:30 MDM - Chest Pain Medical Decision Making 46-year-old presents with chest pain. Physical exam unremarkable. EKG and troponin not revealing sign of acute ischemia or acute abnormality however does have significant creatinine elevation to 4.5 and mild hyperkalemia 5.7. EKG does not represent hyperkalemic change. Do not believe emergent dialysis calcium or insulin drip are required at this time but will continue to monitor. Patient does have an elevated D-dimer. Due to creatinine elevation unable to perform CTA. Discussed with hospitalist patient may require VQ scan while inpatient. Remainder of lab work and imaging reviewed. Discussed with hospitalist and they agreed patient would benefit from admission. Patient admitted in stable condition. Further evaluation management per hospitalist te am. Lab Data : 06/26/21 10:00 06/26/21 10:00 Radiology Impressions Chest X-Ray 06/26/21 09:46 IMPRESSION: 1. Right lower lobe pneumonia 2. Otherwise negative for acute abnormality Laboratory Results WBC 10.0 10^3/uL (4.0-10.0) 06/26/21 10:00 RBC 2.70 10^6/uL (4.1-5.3) L 06/26/21 10:00 Hgb 7.5 g/dL (11.5-15.3) L 06/26/21 10:00 Hct 24.4 % (37.0-47.0) L 06/26/21 10:00 MCV 90.4 fl (81-99) 06/26/21 10:00 MCH 27.8 pg (28.0-34.0) L 06/26/21 10:00 MCHC 30.7 g/dL (30.0-36.0) 06/26/21 10:00 RDW 13.9 % (12.1-15.1) 06/26/21 10:00 Plt Count 299 10^3/cmm (130-400) 06/26/21 10:00 MPV 11.0 fL (7.4-10.4) H 06/26/21 10:00 Neut % (Auto) 69.1 % 06/26/21 10:00 Lymph % (Auto) 15.8 % 06/26/21 10:00 Jessamine % (Auto) 10.7 % 06/26/21 10:00 Eos % (Auto) 2.7 % 06/26/21 10:00 Baso % (Auto) 1.1 % 06/26/21 10:00 Neut # (Auto) 6.94 10^3/uL (1.8-7.7) 06/26/21 10:00 Lymph # (Auto) 1.6 10^3/uL (0.8-4.8) 06/26/21 10:00 Jessamine # (Auto) 1.1 10^3/uL (0.2-0.9) H 06/26/21 10:00 Eos # (Auto) 0.3 10^3/uL (0.0-0.8) 06/26/21 10:00 Baso # (Auto) 0.1 10^3/uL (0.0-0.1) 06/26/21 10:00 Nucleated RBC % (auto) 0 % 06/26/21 10:00 Nucleated RBCs # 0.0 /100WBC 06/26/21 10:00 D-Dimer 2.32 ug/mIFEU (0-0.59) H 06/26/21 10:00 Sodium 134 mmol/L (136-145) L 06/26/21 10:00 Potassium 5.7 mmol/L (3.5-5.1) H 06/26/21 10:00 Chloride 102 mmol/L (98-107) 06/26/21 10:00 Carbon Dioxide 22 mmol/L (22-29) 06/26/21 10:00 Anion Gap 15.7 (5-19) 06/26/21 10:00 BUN 63 mg/dL (6-20) H 06/26/21 10:00 Creatinine 4.5 mg/dL (0.5-0.9) H 06/26/21 10:00 GFR Calculation 10.4 mL/min (90-130) L 06/26/21 10:00 Glucose 175 mg/dL (65-115) H 06/26/21 10:00 Calculated Osmolality 300 mOsm/kg (285-295) H 06/26/21 10:00 Lactate 0.6 mmol/L (0.5-2.2) 06/26/21 10:00 Calcium 8.2 mg/dL (8.5-10.5) L 06/26/21 10:00 Total Bilirubin 0.2 mg/dL (0.15-1.2) 06/26/21 10:00 AST 11 U/L (0-32) 06/26/21 10:00 ALT 11 U/L (0-33) 06/26/21 10:00 Alkaline Phosphatase 84 IU/L (35-105) 06/26/21 10:00 Troponin T Baseline 22 ng/L (0-10) H 06/26/21 10:00 NT-Pro-B Natriuret Pep 7326 pg/mL (0-125) H 06/26/21 10:00 Total Protein 7.3 g/dL (6.6-8.7) 06/26/21 10:00 Albumin 3.2 g/dL (3.5-5.2) L 06/26/21 10:00 Globulin 4.1 g/dL (1.3-4.6) 06/26/21 10:00 Lipase 49 U/L (13-60) 06/26/21 10:00 SARS-CoV-2 Ag (Rapid) Negative (Negative) 06/26/21 10:35 EKG Data EKG 1: Other EKG comments: Sinus rhythm, rate of 60, incomplete right bundle branch block, no sign of acute ischemia or other acute abnormality. Discharge Plan Discharge Admit Provider: Hill Mcdaniel Condition: Stable Coding Level of Care Code ED Capacity Planning Manager for [facility] F[facility]kevin
[2021-06-26 10:08] LABS: Basophils # 0.1 10^3/uL (0.0-0.1); Basophils % 1.1 %; Eosinophils # 0.3 10^3/uL (0.0-0.8); Eosinophils % 2.7 %; Hematocrit 24.4 % (37.0-47.0); Hemoglobin 7.5 g/dL (11.5-15.3); Lymphocytes # 1.6 10^3/uL (0.8-4.8); Lymphocytes % 15.8 %; Mean Corpuscular HGB Conc 30.7 g/dL (30.0-36.0); Mean Corpuscular Hemoglobin 27.8 pg (28.0-34.0); Mean Corpuscular Volume 90.4 fl (81-99); Monocytes # 1.1 10^3/uL (0.2-0.9); Monocytes % 10.7 %; Neutrophils # 6.94 10^3/uL (1.8-7.7); Neutrophils % 69.1 %; Nucleated Red Blood Cells % 0 %; Platelet Count 299 10^3/cmm (130-400); Red Cell Distribution Width 13.9 % (12.1-15.1)
[2021-06-26] MEDS: nitroglycerin 0.4 mg sublingual Tablet SUBLINGUAL (10:14)
[2021-06-26] MEDS: aspirin 81 mg Chew Tablet 324 MG PO (10:14)
[2021-06-26 10:24] LABS: D Dimer 2.32 ug/mIFEU (0-0.59)
[2021-06-26 10:27] LABS: Troponin(5th) Baseline 22 ng/L (0-10)
[2021-06-26 10:36] LABS: Alanine Aminotransferase 11 U/L (0-33); Albumin Level 3.2 g/dL (3.5-5.2); Alkaline Phosphatase 84 IU/L (35-105); Anion Gap 15.7 (5-19); Aspartate Amino Transferase 11 U/L (0-32); Blood Urea Nitrogen 63 mg/dL (6-20); Calcium 8.2 mg/dL (8.5-10.5); Carbon Dioxide 22 mmol/L (22-29); Chloride 102 mmol/L (98-107); Globulin 4.1 g/dL (1.3-4.6); Glomerular Filtration Rate 10.4 mL/min (90-130); Glucose 175 mg/dL (65-115); Lipase 49 U/L (13-60); NT Pro B Type Natriuretic Pept 7326 pg/mL (0-125); Osmolality Calculated 300 mOsm/kg (285-295); Potassium 5.7 mmol/L (3.5-5.1); Sodium 134 mmol/L (136-145); Total Bilirubin 0.2 mg/dL (0.15-1.2); Total Protein 7.3 g/dL (6.6-8.7)
[2021-06-26] MEDS: levofloxacin-dextrose 5 % 750 MG/150 ML PREMIX 100 MG IV (10:46)
[2021-06-26 11:08] LABS: SARS Covid-2 Antigen Negative (Negative)
[2021-06-26 11:16] LABS: Lactate (Lactic Acid level) 0.6 mmol/L (0.5-2.2)
--- NOTE | 2021-06-26 11:47 | ECG_ITS ---
[facility] Test Date: 2021-06-26 Pat Name: Honey Zuleta Department: Room: Gender: Female Medical Staff Manager: : 1975 Requested By: Aleksandar Ho Order Number: [id number] Connell MD: Sheridan Marquez M.D. Measurements Intervals [place] Rate: 60 P: 53 [place]: 190 QRS: 70 QRSD: 100 T: 46 QT: 415 QTc: 415 Interpretive Statements SINUS RHYTHM POSSIBLE RIGHT VENTRICULAR CONDUCTION DELAY [RSR (QR) IN V1/V2] Compared to ECG 04/13/2021 01:41:58 Incomplete right bundle-branch block no longer present Electronically Signed On 06-26-2021 22:03:18 CDT by Sheridan Marquez M.D. [id number]
--- NOTE | 2021-06-26 11:54 | USCV_ITS ---
Honey Zuleta Age: 46 Gender: F : 1975 Exam Date: 06/26/2021 14:10 Ordering Phys: Hill Mcdaniel MD Technologist: Arely Cochran [place] [facility] [place]ication: SOB ? PE BP: 164 / 87 HR: 62 Rhythm: Sinus Technical Quality: Adequate MEASUREMENTS (Male / Female) Normal Values 2D ECHO LV Diastolic Diameter PLAX 4.3 cm 4.2 - 5.9 / 3.9 - 5.3 cm LV Systolic Diameter PLAX 2.4 cm LV Chamber Size 3.7 cm IVS Diastolic Thickness 1.1 cm 0.6 - 1.0 / 0.6 - 0.9 cm IVS Systolic Thickness 1.2 cm LVPW Diastolic Thickness 1.2 cm 0.6 - 1.0 / 0.6 - 0.9 cm LVPW Systolic Thickness 1.5 cm RV Chamber Size 2.4 cm LVOT Diameter 2.0 cm LV Ejection Fraction 2D Teich 74.9 % LV Ejection Fraction MOD 2C 48.8 % LV Ejection Fraction 2C AL 51.5 % LA Diameter 3.7 cm LA Width 4.6 cm LA Height 4.3 cm RA Width 3.5 cm RA Height 5.3 cm Aorta at Sinotubular Diameter 3.6 cm M-MODE Aortic Annulus Diameter 3.1 cm LA Ao Ratio MM 1.6 MV E Point Septal Separation 0.6 cm DOPPLER AV Peak Velocity 138.3 cm/s LVOT Peak Velocity 87.3 cm/s AV Area Cont Eq vti 2.2 cm squared AV Area Cont Eq pk 2.0 cm squared MV Area PHT 4.4 cm squared Mitral E to A Ratio 1.4 MV E' Velocity 60.5 cm/s Mitral E to MV E' Ratio 12.1 Mitral E to LV E' Lateral Ratio 16.0 Mitral E to LV E' Septal Ratio 9.7 TR Peak Velocity 276.0 cm/s TR Peak Gradient 30.5 mmHg TR Mean Velocity 225.8 cm/s TR Mean Gradient 21.4 mmHg TR Velocity Time Integral 108.6 cm TV Peak E Velocity 70.0 cm/s Right Atrial Pressure 3.0 mmHg Pulmonary Artery Systolic Pressu 33.5 mmHg PV Peak Velocity 68.0 cm/s RV Acceleration Time 0.2 s RV Ejection Time 0.4 s RV AcT/ET 0.5 FINDINGS Left Ventricle Normal left ventricular size and systolic function, EF 57 %. Mild left ventricular hypertrophy. No regional wall motion abnormalities. Right Ventricle The right ventricle is normal in size and function. Right Atrium The right atrium is normal in size. Left Atrium The interatrial septum appears to be bulging to the right side Mitral Valve Mild mitral valve regurgitation. Aortic Valve No gross abnormalities noted . Tricuspid Valve Trace tricuspid valve regurgitation. Pulmonic Valve no gross abnormalities noted Pericardium Normal pericardium without effusion. Aorta Normal ascending aorta dimension. CONCLUSIONS Normal left ventricular size and systolic function, EF 57 %. Mild left ventricular hypertrophy. No regional wall motion abnormalities. Mild mitral valve regurgitation. Trace tricuspid valve regurgitation. Interatrial septum appears to be bulging to the right side. There is no pericardial effusion. There are no intracardiac masses. Estimated PA pressure of 33 mmHg No signs of right ventricular strain No similar previous studies are available for comparison Dr Sheridan Marquez MD FAC (Electronically Signed) Final Date: 26 June 2021 21:52 S
--- NOTE | 2021-06-26 11:54 | USCV_ITS ---
Honey Zuleta Age: 46 Gender: F : 1975 Exam Date: 06/26/2021 13:56 Ordering Phys: Hill Mcdaniel MD Technologist: Arely Cochran Exam Location: [facility] [place] Indication: PAINFUL SWOLLEN LT LEG HISTORY: Swollen and painful lt leg PROCEDURES: Venous duplex imaging was performed in only the left lower extremity. The following venous structures were evaluated: common femoral vein, profunda vein, proximal portion of the greater saphenous vein, superficial femoral vein, and the popliteal vein. In addition, the posterior tibial and peroneal trunk were evaluated. Serial compression, augmentation maneuvers, and spectral Doppler flow evaluation were performed. FINDINGS: Normal 2-D Doppler and augmentation and compressibility throughout the lower extremity venous structures. Additional imaging through the proximal calf veins also reveals no thrombus. Limited evaluation of the greater saphenous vein is patent with no thrombus.. The veins were found to be easily compressible with spontaneous blood flow. Non pulsatile flow pattern. CONCLUSIONS No evidence of DVT in the above-mentioned identifiable veins. Dr Sheridan Marquez MD [facility] (Electronically Signed) Final Date: 26 June 2021 21:47 S
--- NOTE | 2021-06-26 12:07 | PM.HP ---
Providers/Chief Complaint Admitting Physician: Hill Mcdaniel MD Primary Care Provider: Lynsey Li APN Chief Complaint: CHEST PAIN History of Present Illness Honey Zuleta is a 46 year old female with a past medical history of type 2 diabetes mellitus, hypertension, right BKA, left lower extremity diabetic ulcer chronic, hypothyroidism, history of CHF, history of lower extremity edema, who presents to [facility] for chest pain. Patient tells me that for the last 3 days she has had substernal pressure-like chest pain, staying in the middle of her chest lasting a few minutes, nonradiating, associate with shortness of breath, no lightheadedness, dizziness, no diaphoresis. No fevers, no chills, no cough, no known exposure to COVID-19. She does report left lower extremity swelling, for which she takes Lasix, does complain of some left lower extremity pain, no hemoptysis -In the emergency room she was found to have troponin of 22, EKG no acute ST-T wave changes was given aspirin -D-dimer was elevated, -Chest x-ray shows right lower lobe pneumonia, was given Levaquin, not requiring oxygen, no complaints of wheezing, no fevers, no history of smoking -Hyperkalemia potassium 5.7, not palpitations, no acute ST-T wave changes -Creatinine of 4.5, baseline creatinine 3, denies any dehydration -Hemoglobin 7.5, denies any bloody or black stools Review of Systems Const: Denies: fever(s), chills, fatigue or malaise Eyes: Denies: change in vision ENMT: Denies: nasal congestion Resp: Denies: dyspnea, productive cough, non-productive cough or wheezing GI: Denies: abdominal pain, nausea, vomiting, hematemesis, diarrhea, constipation, hematochezia or melena : Denies: flank pain, dysuria or urinary frequency Musc: Denies: back pain Skin/Breast: Denies: rash Neuro: Denies: headache(s), dizziness or vertigo Endo: Denies: polyuria or polydipsia Medications/Allergies Home Medications Medication Instructions Recorded Confirmed Last Taken Type famotidine 40 mg tablet (Pepcid) 40 mg PO DAILY 11/05/19 04/13/21 Unknown History insulin detemir U-100 100 unit/mL 22 unit SUBCUT BID ml 11/05/19 04/13/21 Unknown History (3 mL) subcutaneous pen (Levemir FlexTouch U-100 Insulin) levothyroxine 112 mcg tablet 112 mcg PO QAM 11/05/19 04/13/21 Unknown History BING alfonso to the left #1 ea 01/18/21 04/13/21 Unknown Rx acetaminophen 300 mg-codeine 30 mg 1 tab PO Q4H PRN 04/13/21 04/13/21 Unknown History tablet buspirone 10 mg tablet 5 - 10 mg PO BID PRN 04/13/21 04/13/21 Unknown History duloxetine 60 mg capsule,delayed 60 mg PO QAM 04/13/21 04/13/21 Unknown History release estradiol 1 mg tablet 1 mg PO QAM 04/13/21 04/13/21 Unknown History folic acid 400 mcg tablet 0.4 mg PO DAILY 04/13/21 04/13/21 Unknown History furosemide 20 mg tablet 10 - 20 mg PO DAILY PRN 04/13/21 04/13/21 Unknown History insulin lispro 100 unit/mL See Rx Instructions .ROUTE .COMPLEX 04/13/21 04/13/21 Unknown History subcutaneous pen (Humalog KwikPen (U-100) Insulin) timolol maleate 0.5 % eye drops 1 drp OPHTHALMIC (EYE) QAM 04/13/21 04/13/21 Unknown History vit A 1,000 unit-C 200 mg-E 60 1 tab PO DAILY 04/13/21 04/13/21 Unknown History unit-lutein 2 mg and minerals tablet (Healthy Eyes) albuterol sulfate 90 mcg/actuation 2 inh INHALATION Q6H PRN 06/26/21 06/26/21 Unknown History aerosol inhaler amlodipine 10 mg tablet 10 mg PO DAILY 06/26/21 06/26/21 06/25/21 History gabapentin 300 mg capsule 300 mg PO TID 06/26/21 06/26/21 06/25/21 History losartan 50 mg tablet 50 mg PO BID 06/26/21 06/26/21 06/25/21 History metoprolol tartrate 100 mg tablet 100 mg PO BID 06/26/21 06/26/21 06/25/21 History Allergies Allergy/AdvReac Type Severity Reaction Status Date / Time Sulfa (Sulfonamide Allergy Severe fluid Verified 06/10/21 10:13 Antibiotics) around her heart sulfamethoxazole Allergy Severe fluid Verified 06/10/21 10:13 [From Bactrim] around her heart trimethoprim [From Bactrim] Allergy Severe fluid Verified 06/10/21 10:13 around her heart Penicillins Allergy blisters Verified 06/10/21 10:13 to mouth PFSH Acute PFSH: Medical History (Updated 06/26/21 @ 12:13 by Hill Mcdaniel MD) Acute kidney injury Anemia CKD (chronic kidney disease) stage 3, GFR 30-59 ml/min COVID-19 Diabetes mellitus Diabetic foot ulcer Diabetic peripheral neuropathy associated with type 2 diabetes mellitus Hyperlipidemia Hypertension Hypertension Hypothyroid Neuropathy PVD (peripheral vascular disease) Weakness Surgical History Hx of section Hx of tubal ligation Social History Smoking and tobacco status: former smoker Marital status: Number of children: 3 service: No History of recent travel: No Vitals/I&O/Wt Last Vital Signs Temp 97.7 F 06/26/21 10:13 Pulse 63 06/26/21 11:30 Resp 16 06/26/21 11:30 BP 164/87 06/26/21 11:30 Pulse Ox 96 06/26/21 11:30 Physical Exam Const: COMMON NORMALS: no acute distress and patient oriented x3 HENMT: COMMON NORMALS: normocephalic HEAD & SCALP: normocephalic Eye: COMMON NORMALS: Equal, round and reactive pupils present and EOMs intact bilaterally Neck/C-Spine: COMMON NORMALS: no JVD Resp: COMMON NORMALS: normal respiratory effort, No retractions, No use of accessory muscles and clear to auscultation bilaterally AUSCULTATION: clear to auscultation bilaterally Cardio: COMMON NORMALS: no JVD, regular rate, regular rhythm, S1 normal heart sound present and S2 normal heart sound present RATE: regular rate RHYTHM: regular rhythm HEART SOUNDS: S1 normal heart sound present and S2 normal heart sound present GI: COMMON NORMALS: Normal to inspection, nondistended, normoactive bowel sounds present, Soft to palpation, non-tender, No hepatosplenomegaly present, no masses and no bruits PALPATION: Yes Soft to palpation and Yes No hepatosplenomegaly present Extremity: NARRATIVE EXTREMITY EXAM: Right lower extremity, has some calf tenderness, some swelling, no erythema, plantar aspect right foot, diabetic ulcer measuring 0.5 x 0.5 cm round, good granulation tissue Left BKA Neuro: COMMON NORMALS: patient oriented x3, CN's II-XII intact bilaterally, moves all extremities, no focal motor deficits and no sensory deficits noted Psych: COMMON NORMALS: mental status grossly normal Data : 06/26/21 10:00 06/26/21 10:00 Micro: Microbiology 06/26/21 10:59 Blood Culture - Preliminary Blood SPECIMEN COLLECTED 06/26/21 10:49 Blood Culture - Preliminary Blood SPECIMEN COLLECTED A&P Assessment and plan (1) Chest pain: Status: Acute (2) Acute kidney injury superimposed on CKD: Status: Acute (3) Diabetic foot ulcer: Status: Acute Qualifiers: Diabetic foot ulcer location: midfoot Diabetes mellitus type: type 2 Laterality: left Non-pressure ulcer stage: unspecified non-pressure ulcer stage Qualified Code(s): E11.621 - Type 2 diabetes mellitus with foot ulcer; L97.429 - Non-pressure chronic ulcer of left heel and midfoot with unspecified severity (4) Anemia: Status: Acute (5) Diabetes mellitus: Status: Acute (6) Right lower lobe pneumonia: Status: Acute (7) Hyperkalemia: Status: Acute (8) Elevated d-dimer: Status: Acute (9) Left leg pain: Status: Acute (10) Hypothyroid: Status: Acute (11) Hypertension: Status: Acute (12) Hyperlipidemia: Status: Acute Plan Chest pain -Risk factors include type 2 diabetes mellitus, hypertension -Sounds cardiac in nature -Continue aspirin, statin, metoprolol -Nitro as needed for chest pain -Serial EKGs, serial troponins -Cardiac echo -As she has complicating pneumonia, acute renal failure, elevated D-dimer this is complicating her chest pain -For now we will stabilize from above conditions, and will proceed with stress test possibly on Sunday Elevated D-dimer -He is on estrogen, does have chronic left lower extremity diabetic ulcer -We will do venous ultrasound for DVT -Given complaints of chest pain, shortness of breath elevated troponin elevated D-dimer will do VQ scan Acute on chronic anemia -Has anemia chronic disease likely secondary to diabetic ulcer -Hemoglobin the lowest at 7.5 -Iron studies, ferritin, TIBC, reticulocyte count, Hemoccult stool -For now hold off on anticoagulation for DVT prophylaxis -Hold off on transfusion Protonix, Carafate - -Continue to monitor hemoglobin LUPILLO on CKD -Baseline creatinine 3 -Up to 4.5 -Possibly secondary dehydration, UA pending -We will do start on gentle IV hydration -Monitor kidney function, Place [place] monitor urine output Right lower lobe pneumonia -Has received Levaquin -Continue Rocephin azithromycin -Sputum cultures, blood cultures -Urine bacterial antigens -Monitor respiratory status Type 2 diabetes mellitus, continue Levemir 20 units twice daily, with low-dose sliding scale History of lower extremity edema, hold off on Lasix Hypertension, continue metoprolol Hypothyroidism, continue levothyroxine Full code -SCDs for DVT prophylaxis, anticoagulation relatively contraindicated given anemia Attestations Medical Necessity Statement*: Patient requires hospitalization, inpatient, greater than 2 midnights, for pneumonia, chest pain, LUPILLO, anemia, elevated D-dimer, Coding Level of Care Code 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
[2021-06-26] MEDS: sodium polystyrene sulfonate 15 gm/60 mL Btl PO ×2 (12:20→17:22)
[2021-06-26] MEDS: pantoprazole 40 mg SDV IVP (12:22)
[2021-06-26 12:30] LABS: Arterial Blood Gas Hematocrit 23.5 % (37-47); Base Excess ABG -3.8 mmol/L (-2.0-2.0); Blood Gas Allen Test Pos; Blood Gas Sample Type Arterial; HCO3 ABG 22.3 mmol/L (22-26)
[2021-06-26 12:32] LABS: Glucose Point of Care 162 mg/dL (70-110)
[2021-06-26 12:32] LABS: Blood Gas Sample Site Radial, right; Oxygen Device ROOM AIR
[2021-06-26] MEDS: insulin lispro 100 unit/1 mL SUBCUT (12:33)
[2021-06-26 12:45] LABS: Troponin 5 2HR 22.48 ng/L (0-10)
[2021-06-26 12:52] LABS: Troponin 5 2HR Delta 0.48 ABS# (0-10)
[2021-06-26 13:39] LABS: Estmated Average Glucose 148; Hemoglobin A1C 6.8 % (4.0-6.0)
[2021-06-26 14:12] LABS: Procalcitonin 0.08 ng/mL (0-0.5); Thyroid Stimulating Hormone 2.26 uIU/mL (0.27-4.20)
[2021-06-26 14:23] LABS: C Reactive Protein 39.9 mg/L (0.0-4.9); Chol HDL Ratio 2.37 mg/dL (0.0-4.40); Cholesterol 147 mg/dL (0-200); Ferritin 433 ng/mL (15-150); HDL Cholesterol 62 mg/dL (60-100); Iron 33 ug/dL (37-145); LDL Cholesterol Calculated 69 mg/dL (50-129); LDL HDL Ratio 1.11 RATIO (0.00-3.22); Percent Saturation 20.6 % (20-50); Total Iron Binding Capacity 160 mcg/dl; Triglycerides 81 mg/dL (0-150); Unsaturated Iron Binding 127 ug/dL (112-347)
[2021-06-26 15:28] LABS: Add Urine Microscopic? YES; Bilirubin Urine Neg (Negative); Blood Urine Neg (Negative); Glucose Urine UA 1+ (Normal); Ketones Urine Negative (Negative); Leukocyte Esterase Urine Negative (Negative); Nitrate Urine Negative (Negative); Protein Urine 3+ (Negative); Specific Gravity, Urine 1.015 (1.005-1.030); Urine Appearance Clear (CLEAR); Urine Color Yellow (Yellow); Urobilinogen Urine Norm (Negative); pH Urine 5 (5-7)
[2021-06-26 15:33] LABS: Bacteria Urine TRACE /hpf; WBC Urine RARE /hpf (0-5)
[2021-06-26 15:34] LABS: Add Urine Culture? No; Mucus Urine TRACE /hpf
[2021-06-26] MEDS: sodium chloride 0.9% 1,000 ML 50 ML IV (15:47)
--- NOTE | 2021-06-26 16:11 | PC.NURSE ---
Patient arrived to unit via stretcher, AAOx4, no c/o pain, calm and cooperative, VSS, no needs at this time. Room clutter free and clean with call light in reach.
[2021-06-26 16:59] LABS: Reticulocyte % 1.6 % (0.5-2.0)
[2021-06-26 17:01] LABS: Basophils # 0.1 10^3/uL (0.0-0.1); Basophils % 0.9 %; Eosinophils # 0.3 10^3/uL (0.0-0.8); Eosinophils % 2.9 %; Hematocrit 24.6 % (37.0-47.0); Hemoglobin 7.8 g/dL (11.5-15.3); Lymphocytes % 22.7 %; Mean Corpuscular HGB Conc 31.7 g/dL (30.0-36.0); Mean Corpuscular Hemoglobin 28.5 pg (28.0-34.0); Mean Corpuscular Volume 89.8 fl (81-99); Mean Platelet Volume 11.1 fL (7.4-10.4); Monocytes % 11.2 %; Neutrophils # 5.36 10^3/uL (1.8-7.7); Neutrophils % 61.7 %; Nucleated Red Blood Cells % 0 %; Platelet Count 293 10^3/cmm (130-400); Red Blood Count 2.74 10^6/uL (4.1-5.3); White Blood Count 8.7 10^3/uL (4.0-10.0)
[2021-06-26 17:19] LABS: Glucose Point of Care 81 mg/dL (70-110)
[2021-06-26] MEDS: sucralfate 1 gm Tablet PO ×2 (17:21→21:36)
[2021-06-26] MEDS: metoprolol tartrate 25 mg Tablet PO (17:22)
[2021-06-26 17:28] LABS: Troponin 5 6HR 22.01 ng/L (0-10)
[2021-06-26 17:32] LABS: Troponin 5 6HR Delta 0.01 ng/L (0-12)
[2021-06-26] MEDS: atorvastatin 40 mg Tablet PO (21:36)
[2021-06-26] MEDS: acetaminophen 325 mg Tablet 650 MG PO (21:52)
[2021-06-27] VITALS (20 sets, daily range): BP systolic 129–185; BP diastolic 69–88; PULSE 58–89; RESP 16–18; TEMP 36.3–36.8; O2SAT 93–98
[2021-06-27] MEDS: pantoprazole 40 mg SDV IVP ×2 (01:37→12:54)
[2021-06-27] MEDS: sodium polystyrene sulfonate 15 gm/60 mL Btl PO ×2 (01:37→06:19)
[2021-06-27] MEDS: levothyroxine 112 mcg Tablet PO (06:19)
[2021-06-27] MEDS: duloxetine 60 mg Capsule PO (06:19)
[2021-06-27] MEDS: timolol 0.5% Op Soln 5 mL Btl 1 DROP EYE-BOTH (06:24)
[2021-06-27 06:26] LABS: Glucose Point of Care 105 mg/dL (70-110)
[2021-06-27] MEDS: sucralfate 1 gm Tablet PO ×4 (06:26→21:55)
[2021-06-27 06:44] LABS: Alanine Aminotransferase 10 U/L (0-33); Albumin Level 2.8 g/dL (3.5-5.2); Alkaline Phosphatase 77 IU/L (35-105); Anion Gap 16.9 (5-19); Aspartate Amino Transferase 12 U/L (0-32); Blood Urea Nitrogen 58 mg/dL (6-20); Calcium 7.9 mg/dL (8.5-10.5); Carbon Dioxide 21 mmol/L (22-29); Chloride 105 mmol/L (98-107); Globulin 3.4 g/dL (1.3-4.6); Glomerular Filtration Rate 9.9 mL/min (90-130); Glucose 88 mg/dL (65-115); Magnesium 2.3 mg/dL (1.7-2.3); Osmolality Calculated 302 mOsm/kg (285-295); Phosphorus 6.2 mg/dL (2.5-4.5); Potassium 4.9 mmol/L (3.5-5.1); Sodium 138 mmol/L (136-145); Total Bilirubin 0.2 mg/dL (0.15-1.2); Total Protein 6.2 g/dL (6.6-8.7)
[2021-06-27 06:46] LABS: Basophils # 0.1 10^3/uL (0.0-0.1); Basophils % 0.9 %; Eosinophils # 0.4 10^3/uL (0.0-0.8); Eosinophils % 4.1 %; Hematocrit 22.5 % (37.0-47.0); Lymphocytes % 23.1 %; Mean Corpuscular HGB Conc 31.1 g/dL (30.0-36.0); Mean Corpuscular Hemoglobin 28.5 pg (28.0-34.0); Mean Corpuscular Volume 91.5 fl (81-99); Mean Platelet Volume 11.2 fL (7.4-10.4); Monocytes # 0.9 10^3/uL (0.2-0.9); Monocytes % 9.9 %; Neutrophils # 5.36 10^3/uL (1.8-7.7); Neutrophils % 61.4 %; Nucleated Red Blood Cells % 0 %; Platelet Count 268 10^3/cmm (130-400); Red Blood Count 2.46 10^6/uL (4.1-5.3); Red Cell Distribution Width 14.1 % (12.1-15.1); White Blood Count 8.7 10^3/uL (4.0-10.0)
[2021-06-27 07:12] LABS: Glucose Point of Care 75 mg/dL (70-110)
[2021-06-27 07:23] LABS: NT Pro B Type Natriuretic Pept 6782 pg/mL (0-125)
[2021-06-27] MEDS: aspirin 81 mg EC Tablet PO (09:30)
[2021-06-27] MEDS: metoprolol tartrate 25 mg Tablet PO ×2 (09:30→17:14)
[2021-06-27 09:41] LABS: Glucose Point of Care 176 mg/dL (70-110)
[2021-06-27] MEDS: nitroglycerin 0.4 mg sublingual Tablet SUBLINGUAL ×3 (10:22→10:32)
--- NOTE | 2021-06-27 10:40 | XRR_ITS ---
PROCEDURE INFORMATION: Exam: XR Chest Exam date and time: 06/27/2021 11:01 AM Age: 46 years old Clinical indication: Pain; Chest pressure; Additional info: C pressure TECHNIQUE: Imaging protocol: XR of the chest. Views: 1 view. COMPARISON: CR (CHEST, ) 06/26/2021 9:54 AM FINDINGS: Lungs: Parenchymal densities are noted in the right lower lobe. These findings show decreased density since prior examination and may represent a resolving pneumonia. Pleural spaces: Unremarkable. No pleural effusion. No pneumothorax. Heart/Mediastinum: Unremarkable. No cardiomegaly. Bones/joints: Unremarkable. XR/XR chest 1V portable [id number] IMPRESSION: 1. Resolving pneumonia right lower lobe 2. Otherwise No acute findings.
--- NOTE | 2021-06-27 10:40 | ECG_ITS ---
[facility] Test Date: 2021-06-27 Pat Name: Honey Zuleta Department: Room: 278 Gender: Female Activities Manager: : 1975 Requested By: Keaton Berkowitz Order Number: [id number] Ko MD: Sheridan Marquez M.D. Measurements Intervals [place] Rate: 71 P: 69 DC: 183 QRS: 74 QRSD: 89 T: 53 QT: 391 QTc: 426 Interpretive Statements SINUS RHYTHM Compared to ECG 06/26/2021 09:50:48 No significant changes Electronically Signed On 06-27-2021 23:07:14 CDT by Sheridan Marquez M.D. [email or web address]
--- NOTE | 2021-06-27 10:46 | PC.CHAP ---
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 visit [] Patient/Family/Request visit [] Outpatient visit [] Follow-up visit [] Physician referral [] Code/Alert [x] Routine visit [] Staff referral [] Actively dying [] Patient sleeping [] Family support [] [] Out of room [] Palliative care [] [] Receiving care in room [] Pre-surgical visit [] Trauma [] Long length of stay [] ICU visit [] Other: Relational/Emotional Strength [x] Patient feels connected with others/family/visitors/staff [] Distress [] Loneliness/isolation [] Abandonment Spirituality of Patient x[] Person of [place] [] Attends Latter Day of their [place] [] Believes in Prayer [] Reads Bible or Taoist materials [x] There are Spiritual issues to be addressed 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 x[] Prayer [x] Active listening [] Non-anxious presence [] Spiritual/emotional support [] Crisis/trauma care [] Spiritual counseling [] Bereavement support [] Provided bereavement packet [] Provided Bible/devotional materials [] Provided toy/stuffed animal, coloring book to patient or family member [] Provided Communion [] Anointing/[place] [] Salvation [x] Completed spiritual assessment [] Other: Impact on Illness or Injury [] Angry [] Fearful [] Anxious [] Often cries [] Exhaustion [] Unable to work [] Unable to attend episcopal [] Unable to walk/stand [] Unable to read [] Unable to drive [] Unable to eat/drink [] Unable to sleep [] Unable to be with family [] Patient intubated [] Other: Summary Time spent with patient 10 min
[2021-06-27] MEDS: morphine 4 mg/mL SDV 1 mL IVP ×2 (10:52→15:22)
[2021-06-27] MEDS: cefTRIAXone 1,000 MG in sodium chloride 0.9% (plus) 50 ML 100 MG IV (11:25)
[2021-06-27 11:36] LABS: Troponin T (5th) Once 23 ng/L (0-10)
[2021-06-27 11:47] LABS: Glucose Point of Care 176 mg/dL (70-110)
[2021-06-27] MEDS: azithromycin 500 MG in sodium chloride 0.9% 250 ML 250 MG IV (13:12)
[2021-06-27] MEDS: insulin lispro 100 unit/1 mL SUBCUT (13:14)
[2021-06-27] MEDS: sodium chloride 0.9% (100 ml) 100 ML 125 ML (17:15)
[2021-06-27 17:23] LABS: Glucose Point of Care 131 mg/dL (70-110)
--- NOTE | 2021-06-27 17:49 | PC.NURSE ---
At 1020 this AM patient stated to nurse that she was experiencing chest pain, like an elephant is sitting on my chest. This pain was centrally located mid sternum. This nurse immediately took VS and pulled sublingual nitrostat to administer to the patient. Patient received 3 doses of medication while VS were taken for monitoring, with no resolution or decrease in pain. Dr Berkowitz was notified, orders were placed by doctor and executed by staff; chest xray, labs, ekg, and morphine administered. Upon pain reassessment, patients oxygen saturation was noted to be 88% on room air. notified and 2L NC placed on patient. See charted VS in patient chart for reference.
--- NOTE | 2021-06-27 19:19 | NM_ITS ---
WS: [id number] NUCLEAR MEDICINE VENTILATION/PERFUSION LUNG SCAN HISTORY: chest pain, sob COMPARISON: Chest radiograph 06/27/2019 TECHNIQUE: Ventilation: 32.1 mCi of Technetium 99 DTPA aerosol inhaled. Perfusion: 5.5 mCi of technetium 99m MAA IV. Coarse heterogeneous uptake on the ventilatory portion of this examination. Mild deposition of radion uclide centrally and also within the trachea. The RIGHT diaphragm is slightly elevated. Perfusion steve luation is much improved as compared to the ventilatory portion. Again noted is the elevated RIGHT di aphragm. There are no wedge-shaped unmatched areas to suggest a pulmonary embolism. NM/NM pul vent and perfus* [id number] IMPRESSION: Low probability pulmonary embolism.
--- NOTE | 2021-06-27 20:38 | USCV_ITS ---
Honey Zuleta Age: 46 Gender: F : 1975 Exam Date: 06/27/2021 22:43 Ordering Phys: Keaton Berkowitz MD Technologist: DIOMEDES Exam Location: [facility]_ Indication: LT forearm swelling PROCEDURES: Venous duplex imaging was performed in only the left upper extremity. The following venous structures were evaluated: internal jugular vein, subclavian vein, axillary vein, and brachial veins. In addition, the basilic vein, cephalic vein, radial vein, and ulnar vein. Serial compression, augmentation maneuvers, and spectral Doppler flow evaluation were performed. FINDINGS: The veins were found to be easily compressible with spontaneous blood flow. Non pulsatile flow pattern. CONCLUSIONS No evidence of venous thrombosis in the above-mentioned identifiable vein Dr Sheridan Marquez MD [facility] (Electronically Signed) Final Date: 29 June 2021 23:08 S
--- NOTE | 2021-06-27 20:39 | PM.PN ---
Subjective Subjective: Earlier today she was having additional recurrence of chest pressure. Slightly worse with deep breaths. Notes some swelling in the left forearm. Vitals/I&O/Wt Last Vital Signs Temp 98 F 06/27/21 20:00 Pulse 66 06/27/21 20:29 Resp 18 06/27/21 20:29 BP 169/88 06/27/21 20:00 Pulse Ox 98 06/27/21 20:29 06/27/21 06/27/21 06/27/21 06:59 14:59 22:59 Intake Total 1701.667 / 1701.667 700 / 2401.667 Output Total 1100 / 1300 900 / 900 Balance -1100 / -1030 1701.667 / 1701.667 -200 / 1501.667 Weight last 48 hrs Weight 108.635 kg Physical Exam Const: COMMON NORMALS: alert GENERAL APPEARANCE: cooperative ORIENTATION/CONSCIOUSNESS: Yes awake HENMT: COMMON NORMALS: normocephalic, EAC's normal, Normal external nose present and moist oral mucous membranes HEAD & SCALP: normocephalic NOSE: Normal external nose present EXTERNAL AUDITORY CANAL: EAC's normal Neck/C-Spine: COMMON NORMALS: no meningeal signs Chest: CHEST: Yes Symmetrical chest wall rise Resp: COMMON NORMALS: clear to auscultation bilaterally AUSCULTATION: clear to auscultation bilaterally Cardio: COMMON NORMALS: regular rate, regular rhythm and No murmurs present (Cardio) RATE: regular rate RHYTHM: regular rhythm GI: COMMON NORMALS: Normal to inspection, nondistended, normoactive bowel sounds present, Soft to palpation and non-tender PALPATION: Yes Soft to palpation Extremity: COMMON NORMALS: no pedal edema OTHER: Minimal swelling left forearm compared to right, no redness, not tender to palpation Neuro: COMMON NORMALS: moves all extremities SENSORIUM/ORIENTATION: Yes alert MENINGEAL SIGNS: Yes no meningeal signs Psych: COMMON NORMALS: mental status grossly normal Skin: COMMON NORMALS: no wounds RASHES: no rashes Urinary Catheter Management: Medina: Cath Placed During This Visit: yes Reason for Continuing Indwelling Catheter: Other Urinary Catheter Date of Insertion: 06/26/21 Urinary Catheter Time of Insertion: 13:54 Data : 06/27/21 05:17 06/27/21 05:17 Micro: Microbiology 06/26/21 10:42 Stool Lactoferrin - Final Stool C.difficile Toxin B Gene (PCR) - Final Occult Blood (FIT) - Final 06/26/21 10:59 Blood Culture - Preliminary Blood NEGATIVE TO DATE 06/26/21 10:49 Blood Culture - Preliminary Blood NEGATIVE TO DATE A&P Assessment and plan (1) Chest pain: Chest pressure episodes. Reports are slightly worse with inspiration. VQ scan with low probability of PE. Discussed with her, and discussed also regarding minimal elevation of troponin. This was repeated today, and again the level is similar. Repeat EKG with sinus rhythm. Noted need for small amount of oxygen, 2 L by nasal cannula. Discussed with her resolving pneumonia in the right lower lobe. She states was not aware of recent pneumonia. She is afebrile, without leukocytosis. Pending assessment with stress test. Status: Acute (2) Anemia: Hemoglobin down to 7. Appears possibly symptomatic. Requested 1 unit PRBC transfusion. Hemoccult noted negative. Thought to be anemia of chronic disease. Does not appear to be iron deficient. 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 Discussed with her worsening renal function, creatinine is up to 4.7. Losartan on hold. Will assess kidney ultrasound. Did not respond to fluid challenge. Stop IVF. Appears to have persistent 3+ proteinuria. Likely diabetic nephropathy. Hyperkalemia better. Hold further Kayexalate. Status: Acute (4) Diabetic foot ulcer: Status: Acute Qualifiers: Diabetic foot ulcer location: midfoot Diabetes mellitus type: type 2 Laterality: left Non-pressure ulcer stage: unspecified non-pressure ulcer stage Qualified Code(s): E11.621 - Type 2 diabetes mellitus with foot ulcer; L97.429 - Non-pressure chronic ulcer of left heel and midfoot with unspecified severity (5) Diabetes mellitus: Status: Acute (6) Right lower lobe pneumonia: Continue empiric ceftriaxone azithromycin for now. Oxygen support. Wean off as tolerating. Rapid COVID-19 negative. Was positive in March. Status: Acute (7) Hyperkalemia: Improved. Hold further Kayexalate. Low potassium diet. Status: Acute (8) Elevated d-dimer: Low probability PE. No LE DVT on duplex. Reports some swelling of the left forearm. Will image with duplex US. Status: Acute (9) Left leg pain: Status: Acute (10) Hypothyroid: Levothyroxine Status: Acute (11) Hypertension: Status: Acute (12) Hyperlipidemia: Status: Acute Plan Type 2 diabetes mellitus, continue Levemir 20 units twice daily, with low-dose sliding scale History of lower extremity edema, hold off on Lasix Attestations Medical Necessity Statement*: Continue admission for additional assessment and management of LUPILLO, pneumonia, acute anemia, pending additional chest pain assessment. Coding Level of Care Code Acute Display Manager for Chg Fwd Diagnoses Chest pain R07.9 Acute kidney injury superimposed on CKD N17.9; N18.9 Diabetic foot ulcer E11.621; L97.429 Diabetic foot ulcer location: midfoot Diabetes mellitus type: type 2 Laterality: left Non-pressure ulcer stage: unspecified non-pressure ulcer stage Anemia D64.9 Diabetes mellitus E11.9 Right lower lobe pneumonia J18.9 Hyperkalemia E87.5 Elevated d-dimer R79.89 Left leg pain M79.605 Hypothyroid E03.9 Hypertension I10 Hyperlipidemia E78.5
--- NOTE | 2021-06-27 20:45 | US_ITS ---
WS: [id number] RENAL ULTRASOUND HISTORY: mara COMPARISON: 12/22/2017, 04/13/2021 TECHNIQUE: 2-D and color Doppler imaging of the kidney submitted. Right kidney: 8.2 cm x 4.3 cm x 4.9 cm. Mild atrophy of the RIGHT kidney. There is cortical thinning. No hydronephrosis or mass. Atrophy is n ew since 2018. Left kidney: 11.3 cm x 5.7 cm x 5.8 cm. Normal echogenicity with no hydronephrosis or mass. Aorta: Not imaged. Urinary Bladder: Medina catheter present in a nondistended bladder. Quality of this examination is limited due to body habitus. US/US renal BI* [id number] IMPRESSION: 1. Quality of this examination is limited due to body habitus. 2. Mild atrophy RIGHT kidney. New since 2017. Similar findings noted on a CT o f 04/13/2021.
[2021-06-27 21:41] LABS: Hemoglobin 8.8 g/dL (11.5-15.3)
[2021-06-27] MEDS: atorvastatin 40 mg Tablet PO (21:55)
[2021-06-28] VITALS (11 sets, daily range): BP systolic 129–184; BP diastolic 74–92; PULSE 65–79; RESP 15–18; TEMP 36.3–37.2; O2SAT 90–96
[2021-06-28] MEDS: morphine 4 mg/mL SDV 1 mL IVP (01:06)
[2021-06-28] MEDS: pantoprazole 40 mg SDV IVP ×2 (01:07→12:45)
[2021-06-28] MEDS: sucralfate 1 gm Tablet PO ×4 (05:54→20:51)
[2021-06-28] MEDS: levothyroxine 112 mcg Tablet PO (05:55)
[2021-06-28] MEDS: duloxetine 60 mg Capsule PO (05:55)
[2021-06-28] MEDS: timolol 0.5% Op Soln 5 mL Btl 1 DROP EYE-BOTH (05:55)
[2021-06-28 06:16] LABS: Basophils # 0.1 10^3/uL (0.0-0.1); Basophils % 1.1 %; Eosinophils # 0.5 10^3/uL (0.0-0.8); Eosinophils % 6.2 %; Hemoglobin 8.5 g/dL (11.5-15.3); Lymphocytes # 2.5 10^3/uL (0.8-4.8); Lymphocytes % 30.2 %; Mean Corpuscular HGB Conc 31.5 g/dL (30.0-36.0); Mean Corpuscular Hemoglobin 28.2 pg (28.0-34.0); Mean Corpuscular Volume 89.7 fl (81-99); Mean Platelet Volume 10.7 fL (7.4-10.4); Monocytes # 0.9 10^3/uL (0.2-0.9); Monocytes % 10.5 %; Neutrophils # 4.25 10^3/uL (1.8-7.7); Neutrophils % 51.6 %; Nucleated Red Blood Cells % 0 %; Platelet Count 295 10^3/cmm (130-400); Red Blood Count 3.01 10^6/uL (4.1-5.3); Red Cell Distribution Width 14.5 % (12.1-15.1); White Blood Count 8.2 10^3/uL (4.0-10.0)
[2021-06-28] MEDS: dextrose 5 % 500 ML 100 ML IV (06:34)
[2021-06-28 06:41] LABS: Alanine Aminotransferase 9 U/L (0-33); Albumin Level 2.8 g/dL (3.5-5.2); Alkaline Phosphatase 75 IU/L (35-105); Anion Gap 14.7 (5-19); Aspartate Amino Transferase 8 U/L (0-32); Blood Urea Nitrogen 61 mg/dL (6-20); Calcium 8.3 mg/dL (8.5-10.5); Carbon Dioxide 22 mmol/L (22-29); Chloride 104 mmol/L (98-107); Globulin 3.8 g/dL (1.3-4.6); Glomerular Filtration Rate 10.2 mL/min (90-130); Glucose 72 mg/dL (65-115); Magnesium 2.3 mg/dL (1.7-2.3); Osmolality Calculated 298 mOsm/kg (285-295); Phosphorus 5.7 mg/dL (2.5-4.5); Potassium 4.7 mmol/L (3.5-5.1); Sodium 136 mmol/L (136-145); Total Bilirubin 0.3 mg/dL (0.15-1.2); Total Protein 6.6 g/dL (6.6-8.7)
[2021-06-28 06:48] LABS: NT Pro B Type Natriuretic Pept 5720 pg/mL (0-125)
[2021-06-28 07:57] LABS: Glucose Point of Care 69 mg/dL (70-110)
[2021-06-28 07:57] LABS: Glucose Point of Care 131 mg/dL (70-110)
[2021-06-28 07:58] LABS: Glucose Point of Care 70 mg/dL (70-110)
[2021-06-28] MEDS: aspirin 81 mg EC Tablet PO (08:45)
[2021-06-28] MEDS: metoprolol tartrate 25 mg Tablet PO ×2 (08:45→17:13)
[2021-06-28] MEDS: cefTRIAXone 1,000 MG in sodium chloride 0.9% (plus) 50 ML 100 MG IV (11:57)
--- NOTE | 2021-06-28 12:32 | PM.PN ---
Subjective Subjective: Still having some heaviness on her chest with inspiration. Denies chest pain at rest. No new swelling. Some persistent/recurrent swelling of left lower extremity. Vitals/I&O/Wt Last Vital Signs Temp 97.4 F L 06/28/21 11:25 Pulse 72 06/28/21 11:25 Resp 18 06/28/21 11:25 BP 176/85 06/28/21 11:25 Pulse Ox 94 06/28/21 11:25 06/27/21 06/28/21 06/28/21 22:59 06:59 14:59 Intake Total 820 / 2521.667 740 / 740 Output Total 900 / 900 600 / 1500 Balance -80 / 1621.667 -600 / 1021.667 740 / 740 Weight last 48 hrs Weight 108.635 kg Physical Exam Const: COMMON NORMALS: alert GENERAL APPEARANCE: cooperative ORIENTATION/CONSCIOUSNESS: Yes awake HENMT: COMMON NORMALS: normocephalic, EAC's normal, Normal external nose present and moist oral mucous membranes HEAD & SCALP: normocephalic NOSE: Normal external nose present EXTERNAL AUDITORY CANAL: EAC's normal Neck/C-Spine: COMMON NORMALS: no meningeal signs Chest: CHEST: Yes Symmetrical chest wall rise Resp: COMMON NORMALS: clear to auscultation bilaterally AUSCULTATION: clear to auscultation bilaterally Cardio: COMMON NORMALS: regular rate, regular rhythm and No murmurs present (Cardio) RATE: regular rate RHYTHM: regular rhythm GI: COMMON NORMALS: Normal to inspection, nondistended, normoactive bowel sounds present, Soft to palpation and non-tender PALPATION: Yes Soft to palpation Extremity: GENERAL: Yes edema (trace LLE, L forearm) OTHER: Minimal swelling left forearm compared to right, no redness, not tender to palpation R BKA Neuro: COMMON NORMALS: moves all extremities SENSORIUM/ORIENTATION: Yes alert MENINGEAL SIGNS: Yes no meningeal signs Psych: COMMON NORMALS: mental status grossly normal Skin: COMMON NORMALS: no wounds RASHES: no rashes Urinary Catheter Management: Med[place]: Cath Placed During This Visit: yes Reason for Continuing Indwelling Catheter: Accurate Measurement of Urinary Output in Critically Ill Patients Urinary Catheter Date of Insertion: 06/26/21 Urinary Catheter Time of Insertion: 13:54 Data : 06/28/21 05:58 06/28/21 05:58 Micro: Microbiology 06/26/21 10:42 Stool Lactoferrin - Final Stool C.difficile Toxin B Gene (PCR) - Final Occult Blood (FIT) - Final 06/26/21 10:59 Blood Culture - Preliminary Blood NEGATIVE TO DATE 06/26/21 10:49 Blood Culture - Preliminary Blood NEGATIVE TO DATE A&P Assessment and plan (1) Chest pain: Symptoms appear to be atypical. Heaviness in her chest, with appears to be more related to inspiration. Troponin with only mild elevation, without trend up. EKG not suggestive of acute IA. TTE without regional wall motion normality. Still she does have risk factors of CAD, and so is pending additional assessment by stress test, although this has been for now delayed due to worsened renal function. VQ scan with low probability of PE. No adventitious sounds on lung exam. She is not coughing. Noted need for small amount of oxygen on 06/27 2 L by nasal cannula. Now weaned down to room air. May have been related to IV fluids/mild pulmonary edema. These were discontinued. Hold off additional IVF. Also discussed with her resolving pneumonia in the right lower lobe. She states was not aware of recent pneumonia. She is afebrile, without leukocytosis. For now continues on empiric antibiotics. Status: Acute (2) Anemia: Responded well to transfusion. Hemoccult noted negative. Thought to be anemia of chronic disease. Does not appear to be iron deficient. 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 May try to set up here in town. Discussed with her worsening renal function, creatinine is up to 4.7. Losartan on hold. Mild atrophy of right kidney, no obstruction on kidney ultrasound. Did not respond to fluid challenge. Fluids were discontinued. Appears to have persistent 3+ proteinuria. Likely diabetic nephropathy. Hyperkalemia better. Hold further Kayexalate. Status: Acute (4) Diabetic foot ulcer: Status: Acute Qualifiers: Diabetic foot ulcer location: midfoot Diabetes mellitus type: type 2 Laterality: left Non-pressure ulcer stage: unspecified non-pressure ulcer stage Qualified Code(s): E11.621 - Type 2 diabetes mellitus with foot ulcer; L97.429 - Non-pressure chronic ulcer of left heel and midfoot with unspecified severity (5) Diabetes mellitus: Status: Acute (6) Right lower lobe pneumonia: Continue empiric ceftriaxone azithromycin for now. Oxygen support. Wean off as tolerating. Rapid COVID-19 negative. Was positive in March. Status: Acute (7) Hyperkalemia: Improved. Hold further Kayexalate. Low potassium diet. Status: Acute (8) Elevated d-dimer: Low probability PE. No LE DVT on duplex. Reports some swelling of the left forearm. Pending duplex US. Status: Acute (9) Left leg pain: Status: Acute (10) Hypothyroid: Levothyroxine Status: Acute (11) Hypertension: Status: Acute (12) Hyperlipidemia: Status: Acute Plan Type 2 diabetes mellitus, continue Levemir 20 units twice daily, with low-dose sliding scale History of lower extremity edema, hold off on Lasix. No DVT on duplex. Attestations Medical Necessity Statement*: Continue admission for assessment of management of LUPILLO on CKD, pending additional cardiac assessment of chest pressure with elevated risk of CAD. Coding Level of Care Code Acute Astronaut Mission Specialist for g Fwd Diagnoses Chest pain R07.9 Anemia D64.9 Acute kidney injury superimposed on CKD N17.9; N18.9 Diabetic foot ulcer E11.621; L97.429 Diabetic foot ulcer location: midfoot Diabetes mellitus type: type 2 Laterality: left Non-pressure ulcer stage: unspecified non-pressure ulcer stage Diabetes mellitus E11.9 Right lower lobe pneumonia J18.9 Hyperkalemia E87.5 Elevated d-dimer R79.89 Left leg pain M79.605 Hypothyroid E03.9 Hypertension I10 Hyperlipidemia E78.5
[2021-06-28] MEDS: azithromycin 500 MG in sodium chloride 0.9% 250 ML 250 MG IV (12:45)
[2021-06-28] MEDS: atorvastatin 40 mg Tablet PO (20:51)
[2021-06-28 21:35] LABS: Glucose Point of Care 101 mg/dL (70-110)
[2021-06-28 21:35] LABS: Glucose Point of Care 138 mg/dL (70-110)
[2021-06-28] MEDS: hyDRALAzine 20 mg/mL INJ 1 mL 10 MG IVP (21:37)
[2021-06-28 22:14] LABS: Glucose Point of Care 150 mg/dL (70-110)
--- NOTE | 2021-06-28 23:26 | PC.NURSE ---
PATIENT NPO AT THIS TIME FOR SCHEDULED STRESS TEST IN MORNING.
[2021-06-29] VITALS (7 sets, daily range): BP systolic 152–177; BP diastolic 53–83; PULSE 74–98; RESP 16–18; TEMP 36.6–37.2; O2SAT 90–98
[2021-06-29] MEDS: pantoprazole 40 mg SDV IVP ×2 (01:06→13:52)
[2021-06-29] MEDS: hyDRALAzine 20 mg/mL INJ 1 mL 10 MG IVP (04:34)
[2021-06-29] MEDS: duloxetine 60 mg Capsule PO (05:38)
[2021-06-29] MEDS: levothyroxine 112 mcg Tablet PO (05:38)
[2021-06-29] MEDS: timolol 0.5% Op Soln 5 mL Btl 1 DROP EYE-BOTH (05:38)
[2021-06-29] MEDS: sucralfate 1 gm Tablet PO ×3 (06:16→20:43)
[2021-06-29 06:41] LABS: Basophils # 0.1 10^3/uL (0.0-0.1); Basophils % 0.9 %; Eosinophils # 0.4 10^3/uL (0.0-0.8); Eosinophils % 5.2 %; Hematocrit 27.8 % (37.0-47.0); Hemoglobin 8.5 g/dL (11.5-15.3); Lymphocytes % 23.7 %; Mean Corpuscular HGB Conc 30.6 g/dL (30.0-36.0); Mean Corpuscular Hemoglobin 27.5 pg (28.0-34.0); Mean Platelet Volume 10.8 fL (7.4-10.4); Monocytes # 0.8 10^3/uL (0.2-0.9); Monocytes % 9.6 %; Neutrophils # 4.96 10^3/uL (1.8-7.7); Neutrophils % 60.2 %; Nucleated Red Blood Cells % 0 %; Platelet Count 269 10^3/cmm (130-400); Red Blood Count 3.09 10^6/uL (4.1-5.3); Red Cell Distribution Width 14.2 % (12.1-15.1); White Blood Count 8.2 10^3/uL (4.0-10.0)
[2021-06-29 07:07] LABS: Alanine Aminotransferase 7 U/L (0-33); Albumin Level 2.4 g/dL (3.5-5.2); Alkaline Phosphatase 75 IU/L (35-105); Anion Gap 17.3 (5-19); Aspartate Amino Transferase 10 U/L (0-32); Blood Urea Nitrogen 57 mg/dL (6-20); Calcium 8.4 mg/dL (8.5-10.5); Carbon Dioxide 21 mmol/L (22-29); Chloride 108 mmol/L (98-107); Globulin 4.4 g/dL (1.3-4.6); Glomerular Filtration Rate 11.6 mL/min (90-130); Glucose 134 mg/dL (65-115); Magnesium 2.4 mg/dL (1.7-2.3); Osmolality Calculated 310 mOsm/kg (285-295); Phosphorus 5.6 mg/dL (2.5-4.5); Potassium 5.3 mmol/L (3.5-5.1); Sodium 141 mmol/L (136-145); Total Bilirubin 0.2 mg/dL (0.15-1.2); Total Protein 6.8 g/dL (6.6-8.7)
--- NOTE | 2021-06-29 07:24 | NMCV_ITS ---
NM jose perf SPECT r/s* [id number] Honey Zuleta Age: 46 Gender: F : 1975 Exam Date: 06/29/2021 07:24 Ordering Phys: Keaton Berkowitz MD Technologist: JASMIN Chandler Exam Location: [facility] Indications: CHEST PAIN STRESS TEST Please see separate stress test report in [facility] for full findings IMAGE PROTOCOL Rest/Stress 1 Lexiscan Day Radiopharmaceutical Dose (mCi) Administration Site Administered by Rest: Tc-99m 11.0 IV JASMIN Mendez Sestamibi Stress:Tc-99m 33.0 IV JASMIN Mendez Sestamibi Rest: 29-Jun-2021 60 Discovery 630 Stress: 29-Jun-2021 30 Discovery 630 0.4mg Lexiscan. Supine position only as patient was unable to lay prone. SPECT RESULTS Technical Quality: Excellent Raw Data Analysis: Breast attenuation, Normal Image Corrections: No attenuation or motion correction applied Summed Stress Score: 2 Summed Rest Score: 0 Summed Difference Score: 2 PERFUSION FINDINGS There is slightly reduced radiotracer uptake in the anterior wall likely from attenuation artifact. No evidence of ischemia FUNCTIONAL RESULTS (calculated via Gated SPECT) Stress Image LV EF (%): 71 Stress EDV (mL):116 TID: 0.94 Stress ESV (mL):34 FUNCTIONAL FINDINGS: There is normal left ventricular systolic function. IMPRESSIONS 1. Slightly reduced radiotracer uptake in the anterior wall. No prone imaging available. Likely attenuation artifact. Clinical correlation is required 2. Normal LV systolic function Armaan Solomon MD (Electronically Signed) Final Date: 29 June 2021 13:55 S
--- NOTE | 2021-06-29 07:24 | ECG_ITS ---
[facility] Test Date: 2021-06-29 Pat Name: Honey Zuleta Department: Room: 278 Gender: Female Home Child Care Provider: Estefani Figueroa : 1975 Requested By: Keaton Berkowitz Order Number: [id number] Ko MD: Armaan Solomon M.D. Interpretive Statements NAME OF STUDY: LEXISCAN SESTAMIBI STRESS TEST INDICATION: [abnormal ekg, ] Procedure: At the baseline, the blood pressure was 184/81 mmHg with a heart rate of 90 bpm. The electrocardiogram showed normal sinus rhythm, normal axis with normal ST and T's. The Lexiscan was infused over a period of 20 seconds. A total of 0.4 mg of Lexiscan was infused. The stress phase was continued for a total of 5 minutes. Heart rate was at the end of stress phase was 94 bpm and a blood pressure of 149/51 mmHg. The EKG at the peak infusion revealed since normal sinus rhythm with no significant ST-T wave changes. Sestamibi was injected 20 seconds after the Lexiscan infusion. Blood pressure at the end of recovery phase was 152/53 mmHg with a heart rate of 93 bpm. Conclusion: 1. Normal EKG response to Lexiscan infusion 2. No Lexiscan induced chest pain or cardiac arrhythmia. 3. Normal blood pressure and heart rate response. 4. Sestamibi/sestamibi perfusion scan pending; see separate report. Electronically Signed On 07-31-2021 21:24:26 CDT by Armaan Solomon M.D. [id number]
[2021-06-29 07:39] LABS: NT Pro B Type Natriuretic Pept 3517 pg/mL (0-125)
--- NOTE | 2021-06-29 11:19 | PC.SOCIAL ---
Pg 2 IMM Explained to pt Pg 2 IMM. No questions voiced. Provided pt a copy. Initialed, dated, & timed a copy & placed in chart.
[2021-06-29 11:30] LABS: Glucose Point of Care 143 mg/dL (70-110)
--- NOTE | 2021-06-29 11:37 | PC.NURSE ---
Patient to Stress Test at this time.
[2021-06-29] MEDS: regadenoson 0.4 Mg/5 ml Syringe IVP (12:35)
[2021-06-29] MEDS: ondansetron 2 mg/ML SDV 2 mL 4 MG IVP (12:35)
--- NOTE | 2021-06-29 13:22 | PC.NURSE ---
Patient returned from Stress test at this time.
[2021-06-29] MEDS: cefTRIAXone 1,000 MG in sodium chloride 0.9% (plus) 50 ML 100 MG IV (13:29)
[2021-06-29] MEDS: acetaminophen 325 mg Tablet 650 MG PO (13:36)
[2021-06-29] MEDS: azithromycin 250 mg Tablet 500 MG PO (13:52)
[2021-06-29 14:24] LABS: Potassium 5.3 mmol/L (3.5-5.1)
--- NOTE | 2021-06-29 14:42 | P.PN_ITS ---
Subjective Subjective: She is nauseated, dry heaving after her stress test denies chest pain or pressure. She tells me she is not feeling well and also is on a ride home, request to stay overnight until the morning. There is also potential for tornadic activity in the area. Vitals/I&O/Wt Last Vital Signs Temp 97.9 F 06/29/21 12:00 Pulse 93 06/29/21 12:38 Resp 18 06/29/21 12:00 BP 152/53 06/29/21 12:38 Pulse Ox 96 06/29/21 12:00 06/28/21 06/29/21 06/29/21 22:59 06:59 14:59 Output Total 200 / 200 2250 / 2450 900 / 900 Balance -200 / 840 -2250 / -1410 -900 / -900 Physical Exam Const: COMMON NORMALS: alert GENERAL APPEARANCE: cooperative ORIENTATION/CONSCIOUSNESS: Yes awake HENMT: COMMON NORMALS: normocephalic, EAC's normal, Normal external nose present and moist oral mucous membranes HEAD & SCALP: normocephalic NOSE: Normal external nose present EXTERNAL AUDITORY CANAL: EAC's normal Neck/C-Spine: COMMON NORMALS: no meningeal signs Chest: CHEST: Yes Symmetrical chest wall rise Resp: COMMON NORMALS: clear to auscultation bilaterally AUSCULTATION: clear to auscultation bilaterally Cardio: COMMON NORMALS: regular rate, regular rhythm and No murmurs present (Cardio) RATE: regular rate RHYTHM: regular rhythm GI: COMMON NORMALS: Normal to inspection, nondistended, normoactive bowel sounds present, Soft to palpation and non-tender PALPATION: Yes Soft to palpation Extremity: COMMON NORMALS: no pedal edema GENERAL: Yes edema (trace LLE, L forearm) OTHER: Minimal swelling left forearm compared to right, no redness, not tender to palpation R BKA Neuro: COMMON NORMALS: moves all extremities SENSORIUM/ORIENTATION: Yes alert MENINGEAL SIGNS: Yes no meningeal signs Psych: COMMON NORMALS: mental status grossly normal Skin: COMMON NORMALS: no wounds RASHES: no rashes Urinary Catheter Management: [place]: Cath Placed During This Visit: yes Reason for Continuing Indwelling Catheter: Accurate Measurement of Urinary Output in Critically Ill Patients Urinary Catheter Date of Insertion: 06/26/21 Urinary Catheter Time of Insertion: 13:54 Data : 06/29/21 06:17 06/29/21 13:40 Micro: Microbiology 06/26/21 10:42 Stool Lactoferrin - Final Stool Enteric Pathogens (PCR) - Final Parasite Antigen Panel - Final C.difficile Toxin B Gene (PCR) - Final Occult Blood (FIT) - Final A&P Assessment and plan (1) Chest pain: Chest pressure had resolved. She completed a stress test this afternoon, with nausea and dry heaving subsequently. Results with mildly decreased tracer uptake anteriorly with the lack of prone imaging discussed with her. Cannot entirely exclude decreased perfusion due to ischemia, however, more likely artifact given atypical symptoms, minimal troponin elevation, no R WMA. She is likely to be able to return home with continued optimization of risk factors of coronary disease, however, is feeling unwell currently, does not have a ride, and there is potential for tornadic activity in the area, due to which plan is for return home in the morning. Zofran for nausea. Continue PPI. VQ scan with low probability of PE. Transient hypoxia has resolved. Continues on empiric antibiotic treatment of right lower lobe pneumonia. Status: Acute (2) Anemia: Responded well to transfusion. Hemoccult noted negative. Thought to be anemia of chronic disease. Does not appear to be iron deficient. Likely in relation to CKD Status: Acute (3) Acute kidney injury superimposed on CKD: Reports she used to follow with a copy chaser in [place]. May try to set up here in town. Discussed with her worsening renal function, creatinine is up to 4.7. Losartan on hold. Mild atrophy of right kidney, no obstruction on kidney ultrasound. Did not respond to fluid challenge. Fluids were discontinued. Appears to have persistent 3+ proteinuria. Likely diabetic nephropathy. Hyperkalemia better. Hold further Kayexalate. Status: Acute (4) Diabetic foot ulcer: Status: Acute Qualifiers: Diabetic foot ulcer location: midfoot Diabetes mellitus type: type 2 Laterality: left Non-pressure ulcer stage: unspecified non-pressure ulcer stage Qualified Code(s): E11.621 - Type 2 diabetes mellitus with foot ulcer; L97.429 - Non-pressure chronic ulcer of left heel and midfoot with unspecified severity (5) Diabetes mellitus: Status: Acute (6) Right lower lobe pneumonia: Continue empiric ceftriaxone azithromycin for now. Oxygen support. Wean off as tolerating. Rapid COVID-19 negative. Was positive in March. Status: Acute (7) Hyperkalemia: Improved. Hold further Kayexalate. Low potassium diet. Status: Acute (8) Elevated d-dimer: Low probability PE. No LE DVT on duplex. Reports some swelling of the left forearm. Pending duplex US. Status: Acute (9) Left leg pain: Status: Acute (10) Hypothyroid: Levothyroxine Status: Acute (11) Hypertension: Status: Acute (12) Hyperlipidemia: Status: Acute Plan Type 2 diabetes mellitus, continue Levemir 20 units twice daily, with low-dose sliding scale History of lower extremity edema, hold off on Lasix. No DVT on duplex. Attestations Medical Necessity Statement*: Continue hospitalization for reassessment after nausea and dry heaving after stress test, symptom management, discharge preparation pending passage of possible tornadic activity. Coding Level of Care Code Acute Otr [employer] for [facility] Fwd Diagnoses Chest pain R07.9 Anemia D64.9 Acute kidney injury superimposed on CKD N17.9; N18.9 Diabetic foot ulcer E11.621; L97.429 Diabetic foot ulcer location: midfoot Diabetes mellitus type: type 2 Laterality: left Non-pressure ulcer stage: unspecified non-pressure ulcer stage Diabetes mellitus E11.9 Right lower lobe pneumonia J18.9 Hyperkalemia E87.5 Elevated d-dimer R79.89 Left leg pain M79.605 Hypothyroid E03.9 Hypertension I10 Hyperlipidemia E78.5
[2021-06-29 15:08] LABS: Calcium 8.4 mg/dL (8.5-10.5); Parathyroid Hormone 161.3 pg/mL (15-65)
[2021-06-29 17:12] LABS: Glucose Point of Care 168 mg/dL (70-110)
[2021-06-29] MEDS: metoprolol tartrate 25 mg Tablet PO (18:22)
--- NOTE | 2021-06-29 19:42 | PC.NURSE ---
Report to Iliana HAGER at this time.
[2021-06-29] MEDS: atorvastatin 40 mg Tablet PO (20:43)
[2021-06-29 21:02] LABS: Glucose Point of Care 139 mg/dL (70-110)
[2021-06-29 21:02] LABS: Glucose Point of Care 197 mg/dL (70-110)
[2021-06-30] VITALS: BP 180/73; PULSE 81; RESP 20; TEMP 36.9; O2SAT 98
[2021-06-30] MEDS: pantoprazole 40 mg SDV IVP (00:23)
[2021-06-30 04:00] VITALS: BP 170/85; PULSE 76; RESP 18; TEMP 36.9; O2SAT 97
[2021-06-30] MEDS: levothyroxine 112 mcg Tablet PO (05:02)
[2021-06-30] MEDS: duloxetine 60 mg Capsule PO (05:02)
[2021-06-30 06:05] LABS: Basophils # 0.1 10^3/uL (0.0-0.1); Eosinophils # 0.4 10^3/uL (0.0-0.8); Eosinophils % 5.5 %; Hematocrit 27.9 % (37.0-47.0); Hemoglobin 8.5 g/dL (11.5-15.3); Lymphocytes # 1.9 10^3/uL (0.8-4.8); Lymphocytes % 23.2 %; Mean Corpuscular HGB Conc 30.5 g/dL (30.0-36.0); Mean Corpuscular Hemoglobin 28.3 pg (28.0-34.0); Monocytes # 0.7 10^3/uL (0.2-0.9); Monocytes % 9.2 %; Neutrophils # 4.91 10^3/uL (1.8-7.7); Neutrophils % 60.9 %; Nucleated Red Blood Cells % 0 %; Platelet Count 277 10^3/cmm (130-400); White Blood Count 8.1 10^3/uL (4.0-10.0)
[2021-06-30 06:14] LABS: Glucose Point of Care 137 mg/dL (70-110)
[2021-06-30] MEDS: sucralfate 1 gm Tablet PO ×2 (06:17→11:45)
[2021-06-30 06:29] LABS: Blood Urea Nitrogen 55 mg/dL (6-20); Calcium 8.6 mg/dL (8.5-10.5); Carbon Dioxide 22 mmol/L (22-29); Chloride 105 mmol/L (98-107); Glomerular Filtration Rate 11.3 mL/min (90-130); Glucose 137 mg/dL (65-115); Osmolality Calculated 301 mOsm/kg (285-295); Sodium 137 mmol/L (136-145)
[2021-06-30 06:31] LABS: Anion Gap 15.6 (5-19); Potassium 5.6 mmol/L (3.5-5.1)
[2021-06-30 07:01] VITALS: BP 175/85; PULSE 84; RESP 18; TEMP 36.6; O2SAT 97
[2021-06-30] MEDS: metoprolol tartrate 25 mg Tablet PO (08:44)
[2021-06-30] MEDS: aspirin 81 mg EC Tablet PO (08:44)
[2021-06-30] MEDS: timolol 0.5% Op Soln 5 mL Btl 1 DROP EYE-BOTH (08:45)
[2021-06-30] MEDS: acetaminophen 325 mg Tablet 650 MG PO (08:47)
[2021-06-30 11:06] VITALS: O2SAT 92; O2SAT 93
[2021-06-30 11:23] VITALS: BP 196/100; PULSE 77; RESP 16; TEMP 36.7; O2SAT 92
--- NOTE | 2021-06-30 11:35 | PM.DCS ---
Discharge Providers Date of Admission: 06/26/21 11:30 Date of Discharge: June 30, 2021 Attending Provider at Admission: Hill Mcdaniel MD Attending Provider at Discharge: Keaton Berkowitz Primary Care Provider: Lynsey Li APN Diagnoses at Discharge Discharge Diagnosis (1) Chest pain: Status: Acute (2) Anemia: Status: Acute (3) Acute kidney injury superimposed on CKD: Status: Acute (4) Diabetic foot ulcer: Status: Acute Qualifiers: Diabetic foot ulcer location: midfoot Diabetes mellitus type: type 2 Laterality: left Non-pressure ulcer stage: unspecified non-pressure ulcer stage Qualified Code(s): E11.621 - Type 2 diabetes mellitus with foot ulcer; L97.429 - Non-pressure chronic ulcer of left heel and midfoot with unspecified severity (5) Diabetes mellitus: Status: Acute (6) Right lower lobe pneumonia: Status: Acute (7) Hyperkalemia: Status: Acute (8) Elevated d-dimer: Status: Acute (9) Left leg pain: Status: Acute (10) Hypothyroid: Status: Acute (11) Hypertension: Status: Acute (12) Hyperlipidemia: Status: Acute Reason for Visit Reason for Visit: CHEST PAIN Hospital Course Hospital Course 46-year-old lady with CKD, anemia, following with nephrology in [place], HTN, DM 2, history of right BKA, chronic left plantar diabetic ulceration for which she follows with wound clinic, history of CHF, lower extremity edema, hypothyroidism, who was admitted for assessment management of chest pressure, with risk factors of coronary disease, as well as elevated D-dimer on presentation, she also complained of respiratory symptoms with cough, dyspnea, pleuritic discomfort, underwent assessment by VQ scan which showed low probability for PE. Some swelling noted in left leg, with negative venous duplex for DVT. Similarly no DVT in left forearm. Chest x-ray is reviewed right lower lobe pneumonia for which she was treated with ceftriaxone and azithromycin, on and off requiring small amount of oxygen support by nasal cannula. On presentation also in [place] on CKD, creatinine up to 4.7, gradually has been improving, currently down to 4.2. Discussed with her she needs continued follow-up with nephrology with regards to CKD. Due to noted anemia, negative Hemoccult, not iron deficient, received PRBC transfusion due to hemoglobin declined to 7 and symptoms of dyspnea, chest discomfort, with good response. Has had some persistent chest pressure additionally underwent assessment by TTE, stress testing. Chest pressure rather atypical, triggered by inspiration, with troponin series with mild elevation in low 20s. EKG not suggestive of acute NC. TTE without regional wall motion abnormality. Stress test with slightly reduced radiotracer uptake in anterior wall, no prone imaging available. Thought likely attenuation artifact. Results discussed with her. Discussed cannot entirely exclude ischemia, although based on atypical symptoms and other studies ischemia less likely. She is agreeable with plan to continue optimization of medical therapy at this time and follow-up on outpatient basis, but knows to return to the hospital in case of worsening or nonresolving chest discomfort or other concerning symptoms. She is feeling better. Her oxygenation is improved. Does not qualify for oxygen on home evaluation. Please follow-up imaging to confirm resolution of pneumonia in 6 weeks. Please follow-up renal function as well as potassium with noted mild hyperkalemia. She is asked to maintain renal, low potassium diet. Losartan is stopped. She is going to continue follow-up with wound care clinic regarding left foot plantar diabetic ulceration which appears without signs of superinfection. Physical Exam Const: COMMON NORMALS: alert GENERAL APPEARANCE: cooperative ORIENTATION/CONSCIOUSNESS: Yes awake HENMT: COMMON NORMALS: normocephalic, EAC's normal, Normal external nose present and moist oral mucous membranes HEAD & SCALP: normocephalic NOSE: Normal external nose present EXTERNAL AUDITORY CANAL: EAC's normal Neck/C-Spine: COMMON NORMALS: no meningeal signs Chest: CHEST: Yes Symmetrical chest wall rise Resp: COMMON NORMALS: clear to auscultation bilaterally AUSCULTATION: clear to auscultation bilaterally Cardio: COMMON NORMALS: regular rate, regular rhythm and No murmurs present (Cardio) RATE: regular rate RHYTHM: regular rhythm GI: COMMON NORMALS: Normal to inspection, nondistended, normoactive bowel sounds present, Soft to palpation and non-tender PALPATION: Yes Soft to palpation Extremity: COMMON NORMALS: no pedal edema OTHER: R BKA Neuro: COMMON NORMALS: moves all extremities SENSORIUM/ORIENTATION: Yes alert MENINGEAL SIGNS: Yes no meningeal signs Psych: COMMON NORMALS: mental status grossly normal Skin: LESIONS: lesion noted (Chronic 5 mm diabetic ulceration L plantar foot, no drainage or surrounding) RASHES: no rashes Urinary Catheter Management: [place]: Cath Placed During This Visit: yes Reason for Continuing Indwelling Catheter: Accurate Measurement of Urinary Output in Critically Ill Patients Urinary Catheter Date of Insertion: 06/26/21 Urinary Catheter Time of Insertion: 13:54 Discharge Data Studies Completed and Pending Completed Studies During Hospitalization Category Date Time Status CXRP [XR chest 1V portable [id number]] Routine Exams 06/27/21 10:40 Completed Sestamibi Stress Test Request Routine Exams 06/29/21 07:24 Draft XR chest 1V portable [id number] Stat Exams 06/26/21 09:46 Completed NM jose perf SPECT r/s* [id number] Routine Nuc Med 06/29/21 07:24 Completed NM pul vent and perfus* [id number] Routine Nuc Med 06/27/21 19:19 [place] [id number] Routine Ultrasound 06/26/21 11:54 [place] [id number] Routine Ultrasound 06/27/21 20:38 Completed CV. echo complete* [id number] Routine Ultrasound 06/26/21 11:54 Completed US renal BI* [id number] Routine Ultrasound 06/27/21 20:45 Completed Pending at discharge Category Date Time Status Basic Metabolic Panel AM LABS Lab 07/01/21 04:00 Ordered Basic Metabolic Panel AM LABS Lab 07/02/21 04:00 Ordered Blood Culture Stat Lab 06/26/21 10:59 Results Complete Blood Count w/Auto AM LABS Lab 07/01/21 04:00 Ordered Complete Blood Count w/Auto AM LABS Lab 07/02/21 04:00 Ordered Sputum Culture and Gram Stain Stat Lab 06/26/21 11:54 Uncollected Radiology Impressions Chest X-Ray 06/27/21 10:40 IMPRESSION: 1. Resolving pneumonia right lower lobe 2. Otherwise No acute findings. Pulmonary Perfusion Imaging 06/27/21 19:19 IMPRESSION: Low probability pulmonary embolism. Renal Ultrasound 06/27/21 20:45 IMPRESSION: 1. Quality of this examination is limited due to body habitus. 2. Mild atrophy RIGHT kidney. New since 2018. Similar findings noted on a CT of 04/13/2021. Laboratory Results WBC 8.1 10^3/uL (4.0-10.0) 06/30/21 05:48 RBC 3.00 10^6/uL (4.1-5.3) L 06/30/21 05:48 Hgb 8.5 g/dL (11.5-15.3) L 06/30/21 05:48 Hct 27.9 % (37.0-47.0) L 06/30/21 05:48 MCV 93.0 fl (81-99) 06/30/21 05:48 MCH 28.3 pg (28.0-34.0) 06/30/21 05:48 MCHC 30.5 g/dL (30.0-36.0) 06/30/21 05:48 RDW 14.0 % (12.1-15.1) 06/30/21 05:48 Plt Count 277 10^3/cmm (130-400) 06/30/21 05:48 MPV 11.0 fL (7.4-10.4) H 06/30/21 05:48 Neut % (Auto) 60.9 % 06/30/21 05:48 Lymph % (Auto) 23.2 % 06/30/21 05:48 [place] % (Auto) 9.2 % 06/30/21 05:48 Eos % (Auto) 5.5 % 06/30/21 05:48 Baso % (Auto) 1.0 % 06/30/21 05:48 Reticulocyte % (Auto) 1.6 % (0.5-2.0) 06/26/21 16:23 Neut # (Auto) 4.91 10^3/uL (1.8-7.7) 06/30/21 05:48 Lymph # (Auto) 1.9 10^3/uL (0.8-4.8) 06/30/21 05:48 [place] # (Auto) 0.7 10^3/uL (0.2-0.9) 06/30/21 05:48 Eos # (Auto) 0.4 10^3/uL (0.0-0.8) 06/30/21 05:48 Baso # (Auto) 0.1 10^3/uL (0.0-0.1) 06/30/21 05:48 Nucleated RBC % (auto) 0 % 06/30/21 05:48 Nucleated RBCs # 0.0 /100WBC 06/30/21 05:48 D-Dimer 2.32 ug/mIFEU (0-0.59) H 06/26/21 10:00 Specimen Type Arterial 06/26/21 12:20 Sample Site Radial, right 06/26/21 12:20 ABG pH 7.30 (7.35-7.45) L 06/26/21 12:20 ABG pCO2 45.0 mmHg (35-45) 06/26/21 12:20 ABG pO2 62.0 mmHg (80.0-100.0) L 06/26/21 12:20 ABG HCO3 22.3 mmol/L (22-26) 06/26/21 12:20 ABG Base Excess -3.8 mmol/L (-2.0-2.0) L 06/26/21 12:20 Cristian Test Pos 06/26/21 12:20 Hematocrit 23.5 % (37-47) L 06/26/21 12:20 O2 Delivery Device Room air 06/26/21 12:20 Soil Science Professor ID Manolonja 06/26/21 12:20 Sodium 137 mmol/L (136-145) 06/30/21 05:48 Potassium 5.6 mmol/L (3.5-5.1) H 06/30/21 05:48 Chloride 105 mmol/L (98-107) 06/30/21 05:48 Carbon Dioxide 22 mmol/L (22-29) 06/30/21 05:48 Anion Gap 15.6 (5-19) 06/30/21 05:48 BUN 55 mg/dL (6-20) H 06/30/21 05:48 Creatinine 4.2 mg/dL (0.5-0.9) H 06/30/21 05:48 GFR Calculation 11.3 mL/min (90-130) L 06/30/21 05:48 Glucose 137 mg/dL (65-115) H 06/30/21 05:48 POC Glucose 137 mg/dL (70-110) H 06/30/21 06:09 Estimat Average Glucose 148 06/26/21 10:00 Hemoglobin A1c 6.8 % (4.0-6.0) H 06/26/21 10:00 Calculated Osmolality 301 mOsm/kg (285-295) H 06/30/21 05:48 Lactate 0.6 mmol/L (0.5-2.2) 06/26/21 10:00 Calcium 8.6 mg/dL (8.5-10.5) 06/30/21 05:48 Phosphorus 5.6 mg/dL (2.5-4.5) H 06/29/21 06:17 Magnesium 2.4 mg/dL (1.7-2.3) H 06/29/21 06:17 Iron 33 ug/dL (37-145) L 06/26/21 12:12 TIBC 160 mcg/dl 06/26/21 12:12 % Saturation 20.6 % (20-50) 06/26/21 12:12 Unsat Iron Binding 127 ug/dL (112-347) 06/26/21 12:12 Ferritin 433 ng/mL (15-150) H 06/26/21 12:12 Total Bilirubin 0.2 mg/dL (0.15-1.2) 06/29/21 06:17 AST 10 U/L (0-32) 06/29/21 06:17 ALT 7 U/L (0-33) 06/29/21 06:17 Alkaline Phosphatase 75 IU/L (35-105) 06/29/21 06:17 Troponin T Gen 5 ng/L 23 ng/L (0-10) H 06/27/21 10:58 Troponin T Baseline 22 ng/L (0-10) H 06/26/21 10:00 Troponin T 120 Minute 22.48 ng/L (0-10) H 06/26/21 12:12 Delta Troponin T 0.48 ABS# (0-10) 06/26/21 12:12 Troponin T Hi Sens 6Hr 22.01 ng/L (0-10) H 06/26/21 16:23 Troponin T Hi Sens 6Hr Delta 0.01 ng/L (0-12) 06/26/21 16:23 C-Reactive Protein 39.9 mg/L (0.0-4.9) H 06/26/21 12:12 NT-Pro-B Natriuret Pep 3517 pg/mL (0-125) H 06/29/21 06:17 Total Protein 6.8 g/dL (6.6-8.7) 06/29/21 06:17 Albumin 2.4 g/dL (3.5-5.2) L 06/29/21 06:17 Globulin 4.4 g/dL (1.3-4.6) 06/29/21 06:17 Triglycerides 81 mg/dL (0-150) 06/26/21 12:12 Cholesterol 147 mg/dL (0-200) 06/26/21 12:12 LDL Cholesterol, Calc 69 mg/dL (50-129) 06/26/21 12:12 HDL Cholesterol 62 mg/dL (60-100) 06/26/21 12:12 LDL/HDL Ratio 1.11 RATIO (0.00-3.22) 06/26/21 12:12 Cholesterol/HDL Ratio 2.37 mg/dL (0.0-4.40) 06/26/21 12:12 Lipase 49 U/L (13-60) 06/26/21 10:00 Procalcitonin 0.08 ng/mL (0-0.5) 06/26/21 12:12 TSH 2.26 uIU/mL (0.27-4.20) 06/26/21 12:12 PTH Intact 161.3 pg/mL (15-65) H 06/29/21 13:50 Calcium (PTH Intact) 8.4 mg/dL (8.5-10.5) L 06/29/21 13:50 Urine Color Yellow (Yellow) 06/26/21 15:00 Urine Appearance Clear (CLEAR) 06/26/21 15:00 Urine pH 5 (5-7) 06/26/21 15:00 Ur Specific [place] 1.015 (1.005-1.030) 06/26/21 15:00 Urine Protein 3+ (Negative) H 06/26/21 15:00 Urine Glucose (UA) 1+ (Normal) H 06/26/21 15:00 Urine Ketones Negative (Negative) 06/26/21 15:00 Urine Blood Neg (Negative) 06/26/21 15:00 Urine Nitrate Negative (Negative) 06/26/21 15:00 Urine Bilirubin Neg (Negative) 06/26/21 15:00 Urine Urobilinogen Norm mg/dL (Negative) 06/26/21 15:00 Ur Leukocyte Esterase Negative (Negative) 06/26/21 15:00 Urine RBC None /hpf (0-2) 06/26/21 15:00 Urine WBC Rare /hpf (0-5) 06/26/21 15:00 Ur Squamous Epith Cells 5-10 /hpf (0-5) H 06/26/21 15:00 Amorphous Sediment Not Reportable 06/26/21 15:00 Urine Bacteria Trace /hpf (NONE) 06/26/21 15:00 Urine Mucus Trace /hpf 06/26/21 15:00 SARS-CoV-2 Ag (Rapid) Negative (Negative) 06/26/21 10:35 Blood Type A Positive 06/27/21 10:58 Rho(D) Type Positive 06/27/21 10:58 Antibody Screen Negative 06/27/21 10:58 Crossmatch See Detail 06/27/21 10:58 Vitals Last Vital Signs Temp 98.0 F 06/30/21 11:23 Pulse 77 06/30/21 11:23 Resp 16 06/30/21 11:23 BP 196/100 06/30/21 11:23 Pulse Ox 92 06/30/21 11:23 Discharge Plan Discharge Patient Disposition: Home Condition: Stable Prescriptions: New azithromycin 250 mg Tablet 500 mg PO Q24H Qty: 4 0RF cefdinir 300 mg capsule 300 mg PO DAILY 4 Days Qty: 4 0RF Continued levothyroxine 112 mcg tablet 112 mcg PO QAM 0RF Levemir FlexTouch U-100 Insuln 100 unit/mL (3 mL) insulin pen See Rx Instructions .ROUTE .COMPLEX 0RF Rx Instructions: 22 unit subcutaneously IN THE MORNING / 24 units subcutaneously IN THE EVENING famotidine [Pepcid] 40 mg tablet 40 mg PO DAILY 0RF (DME) DARCO shoe to the left See Rx Instructions .Route .MEDSUPPLY Qty: 1 0RF Rx Instructions: As directed acetaminophen-codeine 300-30 mg tablet 1 tab PO Q4H PRN (Reason: Pain) 0RF folic acid 400 mcg Tablet 0.4 mg PO DAILY 0RF estradiol 1 mg tablet 1 mg PO QAM 0RF buspirone 10 mg tablet 5 - 10 mg PO BID PRN (Reason: Anxiety) 0RF timolol maleate 0.5 % drops 1 drp ophthalmic (eye) QAM 0RF insulin lispro [Humalog KwikPen Insulin] 100 unit/mL insulin pen See Rx Instructions .ROUTE .COMPLEX 0RF Rx Instructions: sliding scale subcutaneously tid with meals (max 20 units per day) duloxetine 60 mg capsule,delayed release(DR/EC) 60 mg PO QAM 0RF Healthy Eyes 1,000 unit-200 mg-60 unit-2 mg Tablet 1 tab PO DAILY 0RF Rx Instructions: administer after a meal metoprolol tartrate 100 mg tablet 100 mg PO BID 0RF amlodipine 10 mg tablet 10 mg PO DAILY 0RF gabapentin 300 mg Capsule 300 mg PO TID 0RF albuterol sulfate 90 mcg/actuation HFA aerosol inhaler 2 inh inhalation Q6H PRN (Reason: Shortness Of Breath) 0RF Held furosemide 20 mg tablet 10 - 20 mg PO DAILY PRN (Reason: Edema) 0RF Hold Instructions: Resume on 07/05/21. losartan 50 mg tablet 50 mg PO BID 0RF Hold Instructions: Resume on 07/12/21. Discharge Orders: Discharge Order (Routine); Ordered 06/30/21 Ordered By: Keaton Berkowitz Referrals: Wound Care [Provider Group] - 07/07/21 10:30 am Li,JOSE Menon [Primary Care Provider] - 07/05/21 1:30 pm Discharge Diet: As Directed, Cardiac and Diabetic Discharge Activity: Increase activity as tolerated and Oxygen as instructed Patient Instructions: Acute Kidney Injury (GEN), Chronic Kidney Disease (GEN), Potassium Content of Foods List (GEN), Chronic Kidney Disease Diet (GEN), Using Oxygen at Home (GEN), Hyperkalemia (GEN), Community Acquired Pneumonia (GEN), Anemia (GEN), Hypoxia (ED), Opioid Safety Activity Restrictions/Additional Instructions: Please continue and complete antibiotic course for pneumonia. Please follow-up with your primary doctor for resolution of pneumonia. Consider imaging in about 6 weeks to confirm. Target oxygen saturation of Please follow-up with your primary doctor, as well as with nephrology regarding your kidneys. You were found to have acute kidney injury and chronic kidney disease. In case there is found to be progression of your chronic kidney disease initiation of this for dialysis may be necessary. Please have your primary doctor and billing typist follow-up regarding your anemia. You required blood transfusion while in the hospital. Please maintain low potassium diet and have your primary doctor and kidney doctor follow-up on your potassium level. Your potassium levels were found mildly elevated. Please maintain chronic kidney disease diet. Please have your primary doctor and kidney doctor follow-up your phosphorus levels. Discharge Attestations Time Spent in Discharge Care*: greater than 30 min Quality Metrics Clinical Quality Measures [ No reported AMI, CVA or VTE this stay] Coding Level of Care Code Acute Chg FW DC note Diagnoses Chest pain R07.9 Anemia D64.9 Acute kidney injury superimposed on CKD N17.9; N18.9 Diabetic foot ulcer E11.621; L97.429 Diabetic foot ulcer location: midfoot Diabetes mellitus type: type 2 Laterality: left Non-pressure ulcer stage: unspecified non-pressure ulcer stage Diabetes mellitus E11.9 Right lower lobe pneumonia J18.9 Hyperkalemia E87.5 Elevated d-dimer R79.89 Left leg pain M79.605 Hypothyroid E03.9 Hypertension I10 Hyperlipidemia E78.5
[2021-06-30] MEDS: amlodipine 10 mg Tablet PO (11:45)
--- NOTE | 2021-06-30 11:49 | PC.NURSE ---
Patient discharge teaching and education were given to patient, all questions were answered at this time. Patients blood pressure was a little elevated before discharge, MD ordered patients blood pressure. Patient belongings accounted for. Home O2 eval complete. Medications sent to patients preferred pharmacy.
[2021-06-30 12:09] VITALS: BP 186/88; PULSE 77; RESP 16; TEMP 36.7; O2SAT 92
[2021-06-30 12:39] LABS: Glucose Point of Care 167 mg/dL (70-110)
== END 2021-06-30 12:10 | disposition home health service (06) | DRG 194 ==
LOC: ER 11:08 → MEDSURG 11:41
PROVIDERS: Admitting Provider Family Medicine; Emergency Provider Emergency Medicine; PCP Nurse Practitioner Family; Visit Provider Internal Medicine
DX: J18.9 Pneumonia, unspecified organism (principal); N17.9 Acute kidney failure, unspecified; L97.429 Non-pressure chronic ulcer of left heel and midfoot with unspecified severity; I13.0 Hypertensive heart and chronic kidney disease with heart failure and stage 1 through stage 4 chronic kidney disease, or unspecified chronic kidney disease; R07.9 Chest pain, unspecified; E11.621 Type 2 diabetes mellitus with foot ulcer; E03.9 Hypothyroidism, unspecified; E78.5 Hyperlipidemia, unspecified; E87.5 Hyperkalemia; R79.89 Other specified abnormal findings of blood chemistry; N18.30 Chronic kidney disease, stage 3 unspecified; D63.1 Anemia in chronic kidney disease; Z87.891 Personal history of nicotine dependence; I50.9 Heart failure, unspecified; Z79.4 Long term (current) use of insulin; M79.605 Pain in left leg
CPT/HCPCS: 11042; 36415; 36416; 36430; 36600; 51702; 71045; 76770; 76857; 78014; 78452; 80048; 80053; 80061; 81001; 82274; 82310; 82728; 82803; 82962; 83036; 83540; 83550; 83605; 83630; 83690; 83735; 83880; 83970; 84100; 84132; 84145; 84443; 84484; 85018; 85025; 85045; 85378; 86140; 86850; 86900; 86920; 87040; 87426; 87493; 87506; 93005; 93017; 93306; 93971; 94664; 96365; 96372; 99285; A6250; A9500; A9540; A9567; C9113; J0360; J0456; J0696; J1815; J1956; J2270; J2405; J2785; J7030; J7050; P9016; Q0144

== ENCOUNTER → 2021-07-07 10:27 | Outpatient (BNVA) | payer MEDICARE, MEDICAID, SELFPAY | PROVIDERS: PCP Nurse Practitioner Family; Visit Provider Nurse Practitioner Family | DX: E11.621 Type 2 diabetes mellitus with foot ulcer (principal); L97.521 Non-pressure chronic ulcer of other part of left foot limited to breakdown of skin; I96 Gangrene, not elsewhere classified; Z87.891 Personal history of nicotine dependence | CPT/HCPCS: 11042; A6250 ==

== ENCOUNTER → 2021-07-14 11:02 | Outpatient (BNVA) | payer MEDICARE, MEDICAID, SELFPAY | PROVIDERS: PCP Nurse Practitioner Family; Visit Provider Nurse Practitioner Family | DX: E11.621 Type 2 diabetes mellitus with foot ulcer (principal); I96 Gangrene, not elsewhere classified; L97.521 Non-pressure chronic ulcer of other part of left foot limited to breakdown of skin; Z87.891 Personal history of nicotine dependence | CPT/HCPCS: 99213; A6021 ==

== ENCOUNTER 2021-07-14 12:00 | Emergency (ER) | payer MEDICARE, MEDICAID, SELFPAY ==
--- NOTE | 2021-07-14 12:52 | XRR_ITS ---
PROCEDURE INFORMATION: Exam: XR Chest Exam date and time: 07/14/2021 1:32 PM Age: 46 years old Clinical indication: Cough and dyspnea; Patient HX: History--pt diagnosed with pneumonia 2 wks ago. PT states she has a heaviness/pressure in the center of her chest for the past two days and it will not go away. PT states she feels as if she is retaining fluid. Additional info: Dyspnea/cough TECHNIQUE: Imaging protocol: XR of the chest. Views: 1 view. COMPARISON: CR XR chest 1V portable [id number] 06/27/2021 11:01 AM FINDINGS: Lungs: Unremarkable. No consolidation. Pleural spaces: Unremarkable. No pleural effusion. No pneumothorax. Heart/Mediastinum: Unremarkable. No cardiomegaly. Bones/joints: Unremarkable. XR/XR chest 1V portable [id number] IMPRESSION: No acute findings.
[2021-07-14 12:59] VITALS: BP 122/72; PULSE 64; RESP 18; TEMP 36.4; O2SAT 97; BMI 38.6
--- NOTE | 2021-07-14 13:47 | USCV_ITS ---
Honey Zuleta Age: 46 Gender: F : 1975 Exam Date: 07/14/2021 14:23 Ordering Phys: Omari Finley DO Technologist: Amadou Yee [place] [facility] [place]: bilat edema sob PROCEDURES: Venous duplex imaging was performed in bilateral lower extremities. The following venous structures were evaluated: common femoral vein, profunda vein, proximal portion of the greater saphenous vein, superficial femoral vein, and the popliteal vein. In addition, the posterior tibial and peroneal trunk were evaluated. FINDINGS: Normal 2-D Doppler and augmentation and compressibility throughout the lower extremity venous structures. Additional imaging through the proximal calf veins also reveals no thrombus. Limited evaluation of the greater saphenous vein is patent with no thrombus. 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 CONCLUSIONS No DVT bilateral lower extremities. Dr. Bernadette Rivera DO (Electronically Signed) Final Date: 14 July 2021 15:18 S
--- NOTE | 2021-07-14 13:47 | ED_ITS ---
HPI - SOB/Dyspnea General: Chief Complaint: Shortness of Breath/Dyspnea Stated Complaint: Sob Time Seen by Provider: 07/14/21 13:47 Source: patient Mode of arrival: ambulatory Limitations: no limitations History of Present Illness: HPI Narrative: 46-year-old female who presents to the emergency room with complaints of 3 days shortness of breath and leg swelling. Patient was recently hospitalized for pneumonia. She has a history of diabetes mellitus. 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 She has swelling inflammation and discomfort in the calf and knee left leg. She is also had some increasing shortness of breath although she denies any chest pain at this time. No fever. MD elicited complaint: shortness of breath Pertinent past history: pneumonia Onset (ago): minute(s) Timing: constant Severity: moderate Exacerbating factors: exertion and coughing Relieving factors: rest Associated symptoms: Reports chest congestion and cough; Deny abdominal pain, chest pain, diaphoresis, dizziness, extremity pain, fever(s), hemoptysis, lightheadedness, myalgias, nausea, orthopnea, palpitations, paresthesias, polydipsia, polyuria, rash, sense of impending doom, syncope or vomiting Review of Systems Const: Denies: fever(s), chills or diaphoresis ENMT: Denies: throat pain, ear or mastoid pain, nasal discharge or nasal congestion Card: Denies: chest pain, palpitations, edema, lightheadedness, syncope or orthopnea Resp: Reports: dyspnea, productive cough, wheezing and chest congestion; Denies: hemoptysis GI: Denies: abdominal pain, nausea or vomiting : Denies: flank pain, difficulty voiding, dysuria, urinary frequency or urinary urgency Musc: Denies: extremity pain Skin/Breast: Denies: rash or pruritus Neuro: Denies: dizziness Endo: Denies: polyuria or polydipsia PFSH ED PFSH: Medical History Acute kidney injury Acute kidney injury superimposed on CKD Anemia CKD (chronic kidney disease) stage 3, GFR 30-59 ml/min COVID-19 Diabetes mellitus Diabetic foot ulcer Diabetic peripheral neuropathy associated with type 2 diabetes mellitus Elevated d-dimer Hyperlipidemia Hypertension Hypertension Hypothyroid Left leg pain Neuropathy PVD (peripheral vascular disease) Weakness Surgical History Hx of section Hx of tubal ligation Social History Smoking and tobacco status: former smoker Marital status: Number of children: 3 service: No History of recent travel: No Physical Exam Const: COMMON NORMALS: no acute distress GENERAL APPEARANCE: cooperative and comfortable ORIENTATION/CONSCIOUSNESS: Yes awake, Yes oriented to person, Yes oriented to place and Yes oriented to time HENMT: COMMON NORMALS: normocephalic, atraumatic and hearing grossly normal bilaterally HEAD & SCALP: normocephalic and atraumatic Neck/C-Spine: COMMON NORMALS: no JVD Resp: COMMON NORMALS: clear to auscultation bilaterally AUSCULTATION: clear to auscultation bilaterally Cardio: COMMON NORMALS: no JVD, regular rate, regular rhythm and No murmurs present (Cardio) RATE: regular rate RHYTHM: regular rhythm GI: COMMON NORMALS: Soft to palpation and No hepatosplenomegaly present AU SCULTATION: Yes normoactive bowel sounds PALPATION: Yes Soft to palpation, No Tenderness to palpation present (GI), No Guarding due to palpation present (GI) and Yes No hepatosplenomegaly present Extremity: COMMON NORMALS: normal to inspection, capillary refill normal, no clubbing, cyanosis or edema, no calf tenderness and no pedal edema Neuro: SENSORIUM/ORIENTATION: Yes oriented to person, Yes oriented to place and Yes oriented to time Skin: COMMON NORMALS: no rashes or lesions noted GENERAL SKIN EXAM: no rashes or lesions noted Course Vital Signs: Vital signs: Vital Signs Temperature 97.6 F 07/14/21 12:59 Pulse Rate 60 07/14/21 15:39 Respiratory Rate 16 07/14/21 15:39 Blood Pressure 160/80 07/14/21 15:39 Pulse Oximetry 95 07/14/21 15:39 MDM - SOB/Dyspnea Medical Decision Making No acute infiltrates no sign of pneumonia patient does have some anemia. She has some hyperkalemia and chronic kidney disease these are both at baseline for her. Venous duplex and chest x-ray negative. Continue current medications recheck with primary care within the next week return if has further problems Medical Records I reviewed the patient's medical records. Lab Data I reviewed the patient's lab results. : 07/14/21 14:00 07/14/21 14:00 Labs/Radiology: Radiology Impressions Chest X-Ray 07/14/21 12:52 IMPRESSION: No acute findings. Laboratory Results WBC 7.5 10^3/uL (4.0-10.0) 07/14/21 14:00 RBC 2.91 10^6/uL (4.1-5.3) L 07/14/21 14:00 Hgb 8.0 g/dL (11.5-15.3) L 07/14/21 14:00 Hct 26.5 % (37.0-47.0) L 07/14/21 14:00 MCV 91.1 fl (81-99) 07/14/21 14:00 MCH 27.5 pg (28.0-34.0) L 07/14/21 14:00 MCHC 30.2 g/dL (30.0-36.0) 07/14/21 14:00 RDW 13.8 % (12.1-15.1) 07/14/21 14:00 Plt Count 280 10^3/cmm (130-400) 07/14/21 14:00 MPV 10.7 fL (7.4-10.4) H 07/14/21 14:00 Neut % (Auto) 62.1 % 07/14/21 14:00 Lymph % (Auto) 22.4 % 07/14/21 14:00 [place] % (Auto) 9.4 % 07/14/21 14:00 Eos % (Auto) 4.2 % 07/14/21 14:00 Baso % (Auto) 1.6 % 07/14/21 14:00 Neut # (Auto) 4.68 10^3/uL (1.8-7.7) 07/14/21 14:00 Lymph # (Auto) 1.7 10^3/uL (0.8-4.8) 07/14/21 14:00 [place] # (Auto) 0.7 10^3/uL (0.2-0.9) 07/14/21 14:00 Eos # (Auto) 0.3 10^3/uL (0.0-0.8) 07/14/21 14:00 Baso # (Auto) 0.1 10^3/uL (0.0-0.1) 07/14/21 14:00 Nucleated RBC % (auto) 0 % 07/14/21 14:00 Nucleated RBCs # 0.0 /100WBC 07/14/21 14:00 Sodium 137 mmol/L (136-145) 07/14/21 14:00 Potassium 5.3 mmol/L (3.5-5.1) H 07/14/21 14:00 Chloride 102 mmol/L (98-107) 07/14/21 14:00 Carbon Dioxide 23 mmol/L (22-29) 07/14/21 14:00 Anion Gap 17.3 (5-19) 07/14/21 14:00 BUN 44 mg/dL (6-20) H 07/14/21 14:00 Creatinine 4.4 mg/dL (0.5-0.9) H 07/14/21 14:00 GFR Calculation 10.7 mL/min (90-130) L 07/14/21 14:00 Glucose 98 mg/dL (65-115) 07/14/21 14:00 Calculated Osmolality 295 mOsm/kg (285-295) 07/14/21 14:00 Calcium 7.5 mg/dL (8.5-10.5) L 07/14/21 14:00 Discharge Plan Discharge Patient Disposition: Home Clinical Impression: Leg edema, left Condition: Stable Prescriptions: No Action levothyroxine 112 mcg tablet 112 mcg PO QAM 0RF Levemir FlexTouch U-100 Insuln 100 unit/mL (3 mL) insulin pen See Rx Instructions .ROUTE .COMPLEX 0RF Rx Instructions: 22 unit subcutaneously IN THE MORNING / 24 units subcutaneously IN THE EVENING famotidine [Pepcid] 40 mg tablet 40 mg PO DAILY 0RF (DME) DARCO shoe to the left See Rx Instructions .Route .MEDSUPPLY Qty: 1 0RF Rx Instructions: As directed acetaminophen-codeine 300-30 mg tablet 1 tab PO Q4H PRN (Reason: Pain) 0RF folic acid 400 mcg Tablet 0.4 mg PO DAILY 0RF estradiol 1 mg tablet 1 mg PO QAM 0RF buspirone 10 mg tablet 5 - 10 mg PO BID PRN (Reason: Anxiety) 0RF furosemide 20 mg tablet 10 - 20 mg PO DAILY PRN (Reason: Edema) 0RF Hold Instructions: Resume on 05/02/21. timolol maleate 0.5 % drops 1 drp ophthalmic (eye) QAM 0RF insulin lispro [Humalog KwikPen Insulin] 100 unit/mL insulin pen See Rx Instructions .ROUTE .COMPLEX 0RF Rx Instructions: sliding scale subcutaneously tid with meals (max 20 units per day) losartan 50 mg tablet 50 mg PO BID 0RF Hold Instructions: Resume on 07/12/21. metoprolol tartrate 100 mg tablet 100 mg PO BID 0RF amlodipine 10 mg tablet 10 mg PO DAILY 0RF gabapentin 300 mg Capsule 300 mg PO TID 0RF albuterol sulfate 90 mcg/actuation HFA aerosol inhaler 2 inh inhalation Q6H PRN (Reason: Shortness Of Breath) 0RF pantoprazole 40 mg Tablet,Delayed Release (Dr/Ec) 40 mg PO DAILY 0RF clotrimazole-betamethasone 1-0.05 % cream 1 applic TOPICAL BID 0RF hydrochlorothiazide 25 mg Tablet 25 mg PO QAM 0RF gentamicin 0.1 % ointment 1 applic TOPICAL BID 0RF WesTab Plus 27 mg iron- 1 mg Tablet 1 tab PO DAILY 0RF Discharge Orders: Discharge ED (Routine); Ordered 07/14/21 Ordered By: Omari Finley Referrals: Lynsey Li APN [Primary Care Provider] - Discharge Diet: Usual diet Discharge Activity: Increase activity as tolerated Patient Instructions: Opioid Safety Activity Restrictions/Additional Instructions: Increase your Lasix to 40 mg daily for 3 days. Coding Level of Care Code ED Messenger Office for Rehana Woodard
[2021-07-14 14:13] LABS: Basophils # 0.1 10^3/uL (0.0-0.1); Basophils % 1.6 %; Eosinophils # 0.3 10^3/uL (0.0-0.8); Eosinophils % 4.2 %; Hematocrit 26.5 % (37.0-47.0); Lymphocytes # 1.7 10^3/uL (0.8-4.8); Lymphocytes % 22.4 %; Mean Corpuscular HGB Conc 30.2 g/dL (30.0-36.0); Mean Corpuscular Hemoglobin 27.5 pg (28.0-34.0); Mean Corpuscular Volume 91.1 fl (81-99); Mean Platelet Volume 10.7 fL (7.4-10.4); Monocytes # 0.7 10^3/uL (0.2-0.9); Monocytes % 9.4 %; Neutrophils # 4.68 10^3/uL (1.8-7.7); Neutrophils % 62.1 %; Nucleated Red Blood Cells % 0 %; Platelet Count 280 10^3/cmm (130-400); Red Blood Count 2.91 10^6/uL (4.1-5.3); Red Cell Distribution Width 13.8 % (12.1-15.1); White Blood Count 7.5 10^3/uL (4.0-10.0)
[2021-07-14 14:40] LABS: Anion Gap 17.3 (5-19); Blood Urea Nitrogen 44 mg/dL (6-20); Calcium 7.5 mg/dL (8.5-10.5); Carbon Dioxide 23 mmol/L (22-29); Chloride 102 mmol/L (98-107); Glomerular Filtration Rate 10.7 mL/min (90-130); Glucose 98 mg/dL (65-115); Osmolality Calculated 295 mOsm/kg (285-295); Potassium 5.3 mmol/L (3.5-5.1); Sodium 137 mmol/L (136-145)
[2021-07-14] MEDS: lactated ringers 1,000 ML 999 ML IV (15:20)
[2021-07-14 15:39] VITALS: BP 160/80; PULSE 60; RESP 16; O2SAT 95
== END 2021-07-14 15:40 | disposition home or self-care (01) ==
PROVIDERS: Emergency Provider Family Medicine; PCP Nurse Practitioner Family
DX: R60.0 Localized edema (principal); Z89.511 Acquired absence of right leg below knee; D64.9 Anemia, unspecified; I12.9 Hypertensive chronic kidney disease with stage 1 through stage 4 chronic kidney disease, or unspecified chronic kidney disease; E11.22 Type 2 diabetes mellitus with diabetic chronic kidney disease; N18.9 Chronic kidney disease, unspecified
CPT/HCPCS: 71045; 80048; 85025; 93970; 96360; 99212; 99283

== ENCOUNTER → 2021-07-21 10:57 | Outpatient (BNVA) | payer MEDICARE, MEDICAID, SELFPAY | PROVIDERS: PCP Nurse Practitioner Family; Visit Provider Nurse Practitioner Family | DX: E11.621 Type 2 diabetes mellitus with foot ulcer (principal); L97.521 Non-pressure chronic ulcer of other part of left foot limited to breakdown of skin; I96 Gangrene, not elsewhere classified; Z87.891 Personal history of nicotine dependence | CPT/HCPCS: 11042; A6250 ==

== ENCOUNTER → 2021-07-25 14:00 | Outpatient (BNVA) | payer MEDICARE, MEDICAID, SELFPAY | PROVIDERS: PCP Nurse Practitioner Family; Visit Provider Internal Medicine | DX: D64.9 Anemia, unspecified (principal); E87.5 Hyperkalemia; J18.9 Pneumonia, unspecified organism; R07.9 Chest pain, unspecified | CPT/HCPCS: 82607; 82668; 82746; 83550; 84443; 85045 ==

== ENCOUNTER → 2021-07-28 10:50 | Outpatient (BNVA) | payer MEDICARE, MEDICAID, SELFPAY | PROVIDERS: PCP Nurse Practitioner Family; Visit Provider Nurse Practitioner Family | DX: E11.621 Type 2 diabetes mellitus with foot ulcer (principal); L97.521 Non-pressure chronic ulcer of other part of left foot limited to breakdown of skin; I96 Gangrene, not elsewhere classified | CPT/HCPCS: 11042; A6250 ==

== ENCOUNTER → 2021-08-11 10:28 | Outpatient (BNVA) | payer MEDICARE, MEDICAID, SELFPAY | PROVIDERS: PCP Nurse Practitioner Family; Visit Provider Nurse Practitioner Family | DX: E11.621 Type 2 diabetes mellitus with foot ulcer (principal); L97.521 Non-pressure chronic ulcer of other part of left foot limited to breakdown of skin; I96 Gangrene, not elsewhere classified | CPT/HCPCS: 11042 ==

== ENCOUNTER → 2021-09-01 11:01 | Outpatient (BNVA) | payer MEDICARE, MEDICAID, SELFPAY | PROVIDERS: PCP Nurse Practitioner Family; Visit Provider Nurse Practitioner Family | DX: E11.621 Type 2 diabetes mellitus with foot ulcer (principal); L97.521 Non-pressure chronic ulcer of other part of left foot limited to breakdown of skin; I96 Gangrene, not elsewhere classified | CPT/HCPCS: 11042 ==

== ENCOUNTER → 2021-09-07 15:37 | Outpatient (BNVA) | payer MEDICARE, MEDICAID, SELFPAY | PROVIDERS: PCP Nurse Practitioner Family; Visit Provider Internal Medicine | DX: D63.1 Anemia in chronic kidney disease (principal); N18.4 Chronic kidney disease, stage 4 (severe) | CPT/HCPCS: 85025 ==

== ENCOUNTER → 2021-09-08 09:58 | Outpatient (BNVA) | payer MEDICARE, MEDICAID, SELFPAY | PROVIDERS: PCP Nurse Practitioner Family; Visit Provider Nurse Practitioner Family | DX: E11.621 Type 2 diabetes mellitus with foot ulcer (principal); L97.521 Non-pressure chronic ulcer of other part of left foot limited to breakdown of skin; I96 Gangrene, not elsewhere classified | CPT/HCPCS: 11042 ==